=== PATIENT | male | born 1930 | race Caucasian/White ===

== ENCOUNTER 2016-12-07 20:49 | Emergency (ER) | payer MEDICARE, BC ==
[2016-12-07 20:59] VITALS: RESP 18
[2016-12-07] MEDS ORDERED: DIPH,PERTUS(ACELL)TETVAC-LF 0.5 ML VIAL IM ONE (21:24)
--- NOTE | 2016-12-07 21:28 | ED ---
General Adult HPI - General Chief complaint: Fall Stated complaint: fall Time Seen by Provider: 12/07/16 21:02 Source: patient, family Mode of arrival: ambulatory Limitations: no limitations - History of Present Illness Initial comments: Patient is a pleasant 86-year-old male presenting to the emergency department following a fall. Incident occurred prior to arrival. Patient fell 2 steps off a front porch. Patient did strike the back of his head. There was some bleeding. No loss of consciousness. Patient does have some chronic weakness, no worse than normal. No significant headache. No confusion. No speech problems. Patient does have a history of head injury with intracranial hemorrhage previously. Patient is no longer on Plavix. Labs tetanus immunization was around 6 years ago. It did take patient tended 20 minutes to get up. Following this patient was able to walk normally without difficulty. - Related Data Home Medications Medication Instructions Recorded Confirmed Aspirin 81 mg PO HS 03/19/14 01/05/16 Atorvastatin [Lipitor] 80 mg PO HS 03/19/14 01/05/16 Carbidopa-Levodopa 25-100 mg 1 tab PO QID 03/19/14 01/05/16 [Sinemet 25-100 mg] Finasteride 5 mg PO DAILY 03/19/14 01/05/16 Furosemide [Lasix] 40 mg PO DAILY 03/19/14 01/05/16 Gabapentin 600 mg PO HS 03/19/14 01/05/16 Trospium Chloride [Sanctura Xr] 60 mg PO DAILY 03/19/14 01/05/16 rOPINIRole HCL [Requip] 2 mg PO BID 03/19/14 01/05/16 Carvedilol [Coreg] 3.125 mg PO AC-BID 01/25/15 01/05/16 Clopidogrel [Plavix] 75 mg PO DAILY 01/25/15 01/05/16 Meclizine [Antivert] 12.5 mg PO BID PRN 10/14/15 01/05/16 diphenhydrAMINE [Benadryl] 25 mg PO BID PRN 10/14/15 01/05/16 Amoxicillin 500 mg PO TID 01/05/16 01/05/16 Neupro Transdermal Patch 1 applic TOPICAL DAILY 01/05/16 01/05/16 Omeprazole [PriLOSEC] 40 mg PO AC-BRKFST 01/05/16 01/05/16 Pregabalin [Lyrica] 50 mg PO DAILY 01/05/16 01/05/16 Previous Rx's Medication Instructions Recorded Albuterol Inhaler [Ventolin Hfa 2 puff INHALATION RT-Q6H #1 01/08/16 Inhaler] Budesonide-Formot 160-4.5 Mcg 2 puff INHALATION RT-BID #1 puff 01/08/16 [Symbicort 160-4.5 Mcg Inhaler] predniSONE 10 mg PO DIRECTED #30 tab 01/08/16 Allergies Allergy/AdvReac Type Severity Reaction Status Date / Time No Known Allergies Allergy Verified 01/05/16 16:06 Review of Systems ROS Statement: Those systems with pertinent positive or pertinent negative responses have been documented in the HPI. ROS Other: All systems not noted in ROS Statement are negative. Constitutional: Denies: fever Eyes: Denies: eye pain ENT: Denies: ear pain Respiratory: Denies: cough Cardiovascular: Denies: chest pain Endocrine: Denies: fatigue Gastrointestinal: Denies: abdominal pain Genitourinary: Denies: dysuria Musculoskeletal: Denies: back pain Skin: Denies: rash Neurological: Denies: headache, weakness Past Medical History Past Medical History: Blood Disorder, Coronary Artery Disease (CAD), Chest Pain / Angina, Heart Failure, GERD/Reflux, Hyperlipidemia, Hypertension, Myocardial Infarction ([place]), Prostate Disorder, Sleep Apnea/CPAP/BIPAP Additional Past Medical History / Comment(s): Sliding hiatal hernia, mild gastritis, diverticulosis, GE reflux, hyperlipidemia, hypertension, coronary artery disease with previous bypass surgery, previous [place], chronic anemia, colonic polyp (right colon), obesity, mild aneurysmal dilatation of the ascending aorta, PARKINSONS, DIVERTIUCLAR DISEASE, CPAP MACHINE, PEPTIC ULCERS, ANEMIA, BPH,UTI,FALLS(06-29-15 FELL OFF LADDER-HEAD INJURY AND FX LT COLLAR BONE - NO SX. FEEL AGAIN 10-14-15 ) Last Myocardial Infarction Date:: 1996 History of Any Multi-Drug Resistant Organisms: None Reported Past Surgical History: Coronary Bypass/CABG, Heart Catheterization, Heart Catheterization With Stent, Joint Replacement, Tonsillectomy Additional Past Surgical History / Comment(s): 2 VESSEL CABG 30 YRS AGO. knee replacement 20yrs ago, StentS placed 2011,ERENDIRA ARTHROTOMY, FINGER SX, EGD/ COLONNOSCOPY,RT FOOT SX. Past Anesthesia/Blood Transfusion Reactions: No Reported Reaction Additional Past Anesthesia/Blood Transfusion Reaction / Comment(s): Pt takes a long time waking up after general anesthesia. PER PST MEDICL HX-HAD BLOOD TRANSFUSION-NO REACTION TOIT. Date of Last Stent Placement:: 2011 Past Psychological History: No Psychological Hx Reported Additional Psychological History / Comment(s): Pt lives with his in their home. Pt is independent normally. Lately he has been encouraged to use a walker by his family. 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 Smoking Status: Former smoker Past Alcohol Use History: Occasional Additional Past Alcohol Use History / Comment(s): OCCAS. BEER DRINKER APPROX 1 A MONTH, CHEWED TOBACCO SINCE AGE 19 Past Drug Use History: None Reported - Past Family History Father Family Medical History: Cancer, Chest Pain / Angina, Congestive Heart Failure ( CHF), Coronary Artery Disease (CAD), Hypertension, Myocardial Infarction ([place]) Mother Additional Family Medical History / Comment(s): hit by a car causing General Exam Limitations: no limitations General appearance: alert, in no apparent distress Head exam: Present: normocephalic, other (Posterior scalp laceration) Eye exam: Present: normal appearance ENT exam: Present: normal oropharynx Neck exam: Present: normal inspection Respiratory exam: Present: normal lung sounds bilaterally Cardiovascular Exam: Present: regular rate, normal rhythm GI/Abdominal exam: Present: soft. Absent: tenderness Extremities exam: Present: normal inspection, full ROM. Absent: tenderness Neurological exam: Present: alert, other (Mild facial droop which is reported is chronic. Slightly garbled speech which is also reported as chronic. No focal extremity weakness.) Psychiatric exam: Present: normal affect, normal mood Skin exam: Present: other (Posterior scalp laceration) Course Vital Signs 12/07/16 20:55 Temperature 97.0 F L Pulse Rate 80 Respiratory 18 Rate Blood Pressure 109/64 O2 Sat by Pulse 97 Oximetry Procedures - Laceration Laceration #1 Consent Obtained: verbal consent Time Out Performed: Yes Indication: laceration Site: scalp Size (cm): 3 Description: linear Depth: simple, single layer Pre-repair: wound explored (Cleansed with Betadine) Type of Sutures: other ([place]) Number of Sutures: 7 Patient Tolerated Procedure: well, no complications Medical Decision Making - Medical Decision Making Patient reevaluated and resting comfortably in bed. Patient and family updated on results. - Radiology Data Radiology results: image reviewed (Computed tomography scan of the brain shows atrophy, no acute intercranial abnormality.) Disposition Clinical Impression: Fall, Laceration of scalp Disposition: HOME SELF-CARE Condition: Stable Instructions: Fall Prevention for Older Adults (ED), Laceration (ED), Head Injury (ED) Additional Instructions: Gently wash area once daily with soap or shampoo and water. Twice daily apply antibiotic ointment and bandage. Staple removal in 8-10 days. Return for change in mental status, confusion, weakness, worsening symptoms or other concerns. Referrals: Tye Valdez MD [Primary Care Provider] - 1-2 days
--- NOTE | 2016-12-07 21:43 | CT ---
EXAMINATION TYPE: CT brain wo con DATE OF EXAM: 12/07/2016 9:38 PM COMPARISON: 02/13/2016 HISTORY: Pt fell today laceration to posterior side of head. CT DLP: 1030.5 mGycm Automated exposure control for dose reduction was used. FINDINGS: There is cerebral cortical atrophy. There is no mass effect nor midline shift. There is no evidence o f intracranial hemorrhage. The calvarium is intact. There is a small mucous retention cyst in the rig ht maxillary sinus. IMPRESSION: Cerebral atrophy. No acute intracranial abnormality. There is clearing of the intracerebral hemorrhag e compared to old exam.
[2016-12-07 22:25] VITALS: BP 104/66; PULSE 82; TEMP 97.5
== END 2016-12-07 22:24 | disposition home or self-care (01) ==
LOC: EC 20:49
DX: S01.01XA Laceration without foreign body of scalp, initial encounter (principal); W10.9XXA Fall (on) (from) unspecified stairs and steps, initial encounter; K21.9 Gastro-esophageal reflux disease without esophagitis; I11.0 Hypertensive heart disease with heart failure; I50.9 Heart failure, unspecified; E78.5 Hyperlipidemia, unspecified; I25.10 Atherosclerotic heart disease of native coronary artery without angina pectoris; G47.30 Sleep apnea, unspecified; Z99.89 Dependence on other enabling machines and devices; Z79.82 Long term (current) use of aspirin; Z79.51 Long term (current) use of inhaled steroids; Z79.899 Other long term (current) drug therapy; Z87.891 Personal history of nicotine dependence; Z23 Encounter for immunization
CPT/HCPCS: 12002; 70450; 90471; 90715; 99284

== ENCOUNTER 2016-12-28 18:17 | Inpatient (IN) | payer MEDICARE, BC ==
[2016-12-28] MEDS ORDERED: SODIUM CHLORIDE 0.9% 500 ML IV STA (18:40)
[2016-12-28] MEDS ORDERED: SODIUM CHLORIDE 0.9% 1,000 ML IV STA (18:40)
[2016-12-28] MEDS ORDERED: IPRATROPIUM-ALBUTEROL 3 ML NEB INHALATION STA (18:40)
--- NOTE | 2016-12-28 18:45 | ED ---
SOB HPI - General Source: patient, family, EMS, RN notes reviewed Mode of arrival: EMS Limitations: no limitations - History of Present Illness MD Complaint: shortness of breath <Eddie Shields - Last Filed: 12/28/16 18:45> <Valerio Mireles - Last Filed: 12/28/16 21:27> - General Chief Complaint: Shortness of Breath Stated Complaint: weakness Time Seen by Provider: 12/28/16 18:17 - History of Present Illness Initial Comments: This is a 86-year-old male brought in by EMS for evaluation for confusion cough shortness of breath and frequent falls. This reportedly fell 3 times today he' s been confused per family members he had a cough and shortness of breath. He also was noted to be hypotensive at home with a 87/57 blood pressure. He does have a history of CHF. No reports of fevers chills or sweats. (Eddie Shields) - Related Data Home Medications Medication Instructions Recorded Confirmed Aspirin 81 mg PO QAM 03/19/14 12/28/16 Atorvastatin [Lipitor] 40 mg PO HS 03/19/14 12/28/16 Carbidopa-Levodopa 25-100 mg 1 tab PO QID 03/19/14 12/28/16 [Sinemet 25-100 mg] Finasteride 5 mg PO DAILY@1200 03/19/14 12/28/16 rOPINIRole HCL [Requip] 2 mg PO QAM 03/19/14 12/28/16 Carvedilol [Coreg] 3.125 mg PO BID 01/25/15 12/28/16 Omeprazole [PriLOSEC] 40 mg PO AC-BRKFST 01/05/16 12/28/16 Docusate [Colace] 100 mg PO BID 12/28/16 12/28/16 Spironolactone [Aldactone] 25 mg PO DAILY@1200 12/28/16 12/28/16 levETIRAcetam [Keppra] 500 mg PO HS 12/28/16 12/28/16 rOPINIRole HCL [Requip] 3 mg PO HS 12/28/16 12/28/16 Allergies Allergy/AdvReac Type Severity Reaction Status Date / Time No Known Allergies Allergy Verified 12/28/16 19:19 Review of Systems ROS Other: All systems not noted in ROS Statement are negative. <Eddie Shields - Last Filed: 12/28/16 18:45> ROS Other: All systems not noted in ROS Statement are negative. <Valerio Mireles - Last Filed: 12/28/16 21:27> ROS Statement: Those systems with pertinent positive or pertinent negative responses have been documented in the HPI. Past Medical History Past Medical History: Blood Disorder, Coronary Artery Disease (CAD), Chest Pain / Angina, Heart Failure, GERD/Reflux, Hyperlipidemia, Hypertension, Myocardial Infarction ([place]), Prostate Disorder, Sleep Apnea/CPAP/BIPAP Additional Past Medical History / Comment(s): Sliding hiatal hernia, mild gastritis, diverticulosis, GE reflux, hyperlipidemia, hypertension, coronary artery disease with previous bypass surgery, previous [place], chronic anemia, colonic polyp (right colon), obesity, mild aneurysmal dilatation of the ascending aorta, PARKINSONS, DIVERTIUCLAR DISEASE, CPAP MACHINE, PEPTIC ULCERS, ANEMIA, BPH,UTI,FALLS(06-29-15 FELL OFF LADDER-HEAD INJURY AND FX LT COLLAR BONE - NO SX. FEEL AGAIN 10-14-15 ) Last Myocardial Infarction Date:: 1996 History of Any Multi-Drug Resistant Organisms: None Reported Past Surgical History: Coronary Bypass/CABG, Heart Catheterization, Heart Catheterization With Stent, Joint Replacement, Tonsillectomy Additional Past Surgical History / Comment(s): 2 VESSEL CABG 30 YRS AGO. knee replacement 20yrs ago, StentS placed 2011,ERENDIRA ARTHROTOMY, FINGER SX, EGD/ COLONNOSCOPY,RT FOOT SX. Past Anesthesia/Blood Transfusion Reactions: No Reported Reaction Additional Past Anesthesia/Blood Transfusion Reaction / Comment(s): Pt takes a long time waking up after general anesthesia. PER PST MEDICL HX-HAD BLOOD TRANSFUSION-NO REACTION TOIT. Date of Last Stent Placement:: 2011 Past Psychological History: No Psychological Hx Reported Additional Psychological History / Comment(s): Pt lives with his in their home. Pt is independent normally. Lately he has been encouraged to use a walker by his family. 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 Smoking Status: Former smoker Past Alcohol Use History: Occasional Additional Past Alcohol Use History / Comment(s): OCCAS. BEER DRINKER APPROX 1 A MONTH, CHEWED TOBACCO SINCE AGE 19 Past Drug Use History: None Reported - Past Family History Father Family Medical History: Cancer, Chest Pain / Angina, Congestive Heart Failure ( CHF), Coronary Artery Disease (CAD), Hypertension, Myocardial Infarction ([place]) Mother Additional Family Medical History / Comment(s): hit by a car causing <CorneliusEddie - Last Filed: 12/28/16 18:45> General Exam Limitations: no limitations General appearance: alert, lethargic Head exam: Present: normocephalic, other (Erythema noted to the scalp with an old abrasion noted to the right parietal scalp. Also old abrasion with some erythema seen to the occipital scalp.) Eye exam: Present: normal appearance, PERRL, EOMI. Absent: scleral icterus, conjunctival injection, periorbital swelling ENT exam: Present: normal exam, mucous membranes moist Neck exam: Present: normal inspection. Absent: tenderness, meningismus, lymphadenopathy Respiratory exam: Present: rhonchi (Right lower lobe rhonchi), decreased breath sounds. Absent: respiratory distress, wheezes, rales, stridor Cardiovascular Exam: Present: regular rate, normal rhythm, normal heart sounds. Absent: systolic murmur, diastolic murmur, rubs, gallop, clicks GI/Abdominal exam: Present: soft, normal bowel sounds. Absent: distended, tenderness, guarding, rebound, rigid Extremities exam: Present: normal inspection, full ROM, normal capillary refill. Absent: tenderness, pedal edema, joint swelling, calf tenderness Back exam: Present: normal inspection Neurological exam: Present: alert, altered, CN II-XII intact Psychiatric exam: Present: normal affect, normal mood Skin exam: Present: warm, dry. Absent: intact <Eddie Shields - Last Filed: 12/28/16 18:45> <Valerio Mireles - Last Filed: 12/28/16 21:27> - General Exam Comments Initial Comments: Is a well-developed well-nourished confused appearing male (CorneliusEddie) Course <Eddie Shields - Last Filed: 12/28/16 18:45> <Valerio Mireles - Last Filed: 12/28/16 21:27> Vital Signs 12/28/16 12/28/16 12/28/16 18:20 18:55 19:07 Temperature 97.8 F Pulse Rate 69 78 84 Respiratory 20 Rate Blood Pressure 87/57 O2 Sat by Pulse 94 L Oximetry 12/28/16 12/28/16 19:34 21:04 Temperature Pulse Rate 80 74 Respiratory 20 20 Rate Blood Pressure 121/65 102/58 O2 Sat by Pulse 97 98 Oximetry - Reevaluation(s) Reevaluation #1: 12/28/16 18:45 The patient's care will be endorsed to Dr. Mireles who will make the final disposition. (Eddie Shields) Medical Decision Making - EKG Data -: EKG Interpreted by Me EKG shows normal: sinus rhythm (EKG shows a sinus rhythm with frequent PVCs rate was 84. 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 Patient had a little bit of crackles in the right base and his scalp was extremely red on the right side and there was some healing old wounds in 2 areas of the scalp it look like a very early cellulitis of the scalp. I started the patient on Levaquin I also added a urine. I looked at the chest x-ray there was no obvious infiltrate and did not look like congestive heart failure. (Valerio Mireles) - Lab Data Lab Results 12/28/16 12/28/16 12/28/16 Range/Units 18:30 18:30 18:30 WBC 5.4 (3.8-10.6) k/uL RBC 4.79 (4.30-5.90) m/uL Hgb 13.2 (13.0-17.5) gm/dL Hct 41.0 (39.0-53.0) % MCV 85.6 (80.0-100.0) fL MCH 27.5 (25.0-35.0) pg MCHC 32.1 (31.0-37.0) g/dL RDW 16.6 H (11.5-15.5) % Plt Count 170 (150-450) k/uL Neutrophils % (Manual) 69.0 % Band Neutrophils % 7.0 % Lymphocytes % (Manual) 12.0 % Monocytes % (Manual) 8.0 % Eosinophils % (Manual) 4.0 % Neutrophils # (Manual) 4.1 (1.3-7.7) k/uL Lymphocytes # (Manual) 0.6 L (1.0-4.8) k/uL Monocytes # (Manual) 0.4 (0-1.0) k/uL Eosinophils # (Manual) 0.2 (0-0.7) k/uL Nucleated RBCs 0 (0-0) /100 WBC Manual Slide Review Performed Large Platelets Present Polychromasia Present Anisocytosis Slight Ovalocytes Present Fragmented RBCs Present PT (9.0-12.0) sec INR (<1.1) APTT (22.0-30.0) sec Sodium 134 L (137-145) mmol/L Potassium 4.1 (3.5-5.1) mmol/L Chloride 105 (98-107) mmol/L Carbon Dioxide 22 (22-30) mmol/L Anion Gap 7 mmol/L BUN 18 (9-20) mg/dL Creatinine 1.50 H (0.66-1.25) mg/dL Est GFR (MDRD) Af Amer 54 (>60 ml/min/1.73 sqM) Est GFR (MDRD) Non-Af 44 (>60 ml/min/1.73 sqM) Glucose 98 (74-99) mg/dL Calcium 8.0 L (8.4-10.2) mg/dL Magnesium 1.8 (1.6-2.3) mg/dL Total Bilirubin 0.9 (0.2-1.3) mg/dL AST 17 (17-59) U/L ALT 22 (21-72) U/L Alkaline Phosphatase 132 H (38-126) U/L Total Creatine Kinase 128 (55-170) U/L CK-MB (CK-2) 1.9 (0.0-2.4) ng/mL CK-MB (CK-2) Rel Index 1.5 Troponin I 0.091 H* (0.000-0.034) ng/mL NT-Pro-B Natriuret Pep pg/mL Total Protein 6.0 L (6.3-8.2) g/dL Albumin 3.4 L (3.5-5.0) g/dL Urine Color Urine Appearance (Clear) Urine pH (5.0-8.0) Ur Specific [place] (1.001-1.035) Urine Protein (Negative) Urine Glucose (UA) (Negative) Urine Ketones (Negative) Urine Blood (Negative) Urine Nitrate (Negative) Urine Bilirubin (Negative) Urine Urobilinogen (<2.0) mg/dL Ur Leukocyte Esterase (Negative) 12/28/16 12/28/16 12/28/16 Range/Units 18:30 18:30 20:30 WBC (3.8-10.6) k/uL RBC (4.30-5.90) m/uL Hgb (13.0-17.5) gm/dL Hct (39.0-53.0) % MCV (80.0-100.0) fL MCH (25.0-35.0) pg MCHC (31.0-37.0) g/dL RDW (11.5-15.5) % Plt Count (150-450) k/uL Neutrophils % (Manual) % Band Neutrophils % % Lymphocytes % (Manual) % Monocytes % (Manual) % Eosinophils % (Manual) % Neutrophils # (Manual) (1.3-7.7) k/uL Lymphocytes # (Manual) (1.0-4.8) k/uL Monocytes # (Manual) (0-1.0) k/uL Eosinophils # (Manual) (0-0.7) k/uL Nucleated RBCs (0-0) /100 WBC Manual Slide Review Large Platelets Polychromasia Anisocytosis Ovalocytes Fragmented RBCs PT 11.5 (9.0-12.0) sec INR 1.2 (<1.1) APTT 23.7 (22.0-30.0) sec Sodium (137-145) mmol/L Potassium (3.5-5.1) mmol/L Chloride (98-107) mmol/L Carbon Dioxide (22-30) mmol/L Anion Gap mmol/L BUN (9-20) mg/dL Creatinine (0.66-1.25) mg/dL Est GFR (MDRD) Af Amer (>60 ml/min/1.73 sqM) Est GFR (MDRD) Non-Af (>60 ml/min/1.73 sqM) Glucose (74-99) mg/dL Calcium (8.4-10.2) mg/dL Magnesium (1.6-2.3) mg/dL Total Bilirubin (0.2-1.3) mg/dL AST (17-59) U/L ALT (21-72) U/L Alkaline Phosphatase (38-126) U/L Total Creatine Kinase (55-170) U/L CK-MB (CK-2) (0.0-2.4) ng/mL CK-MB (CK-2) Rel Index Troponin I (0.000-0.034) ng/mL NT-Pro-B Natriuret Pep 02702 pg/mL Total Protein (6.3-8.2) g/dL Albumin (3.5-5.0) g/dL Urine Color Yellow Urine Appearance Clear (Clear) Urine pH 5.5 (5.0-8.0) Ur Specific [place] 1.018 (1.001-1.035) Urine Protein Trace H (Negative) Urine Glucose (UA) Negative (Negative) Urine Ketones Negative (Negative) Urine Blood Negative (Negative) Urine Nitrate Negative (Negative) Urine Bilirubin Negative (Negative) Urine Urobilinogen 2.0 (<2.0) mg/dL Ur Leukocyte Esterase Negative (Negative) Disposition <Eddie Shields - Last Filed: 12/28/16 18:45> Time of Disposition: 21:27 <Valerio Mireles - Last Filed: 12/28/16 21:27> Clinical Impression: Cellulitis of scalp, Altered mental status, Multiple falls, Bronchitis Disposition: ADMITTED IP TO THIS HOSP Referrals: Tye Valdez MD [Primary Care Provider] - 1-2 days
[2016-12-28 18:58] LABS: Anisocytosis Slight; Aty Lym Flag Slight; CH 27.4; CHCM 32.2; HDW 2.98; HGB 13.2 gm/dL (13.0-17.5); MCH 27.5 pg (25.0-35.0); MCHC 32.1 g/dL (31.0-37.0); MCV 85.6 fL (80.0-100.0); Mean Platelet Volume 8.4; RBC 4.79 m/uL (4.30-5.90); RDW 16.6 % (11.5-15.5); WBC 5.4 k/uL (3.8-10.6)
[2016-12-28 19:00] LABS: INR 1.2 (<1.1); Partial Thromboplastin Time 23.7 sec (22.0-30.0); Prothrombin Time 11.5 sec (9.0-12.0)
[2016-12-28 19:04] LABS: Magnesium 1.8 mg/dL (1.6-2.3); Potassium 4.1 mmol/L (3.5-5.1); Total Bilirubin 0.9 mg/dL (0.2-1.3)
[2016-12-28 19:24] LABS: Add Differential Manual Differential
[2016-12-28 19:28] LABS: Nucleated Red Blood Cells 0 /100 WBC (0-0); Total Cells Counted 100
[2016-12-28 19:30] LABS: Creatine Kinase MB 1.9 ng/mL (0.0-2.4); Manual Review Performed
[2016-12-28 19:31] LABS: Large Platelets Present; Ovalocytes Present
[2016-12-28 19:32] LABS: Polychromasia Present
[2016-12-28 19:33] LABS: Troponin I 0.091 ng/mL (0.000-0.034)
--- NOTE | 2016-12-28 19:36 | CT ---
EXAMINATION TYPE: CT brain ismael wo con DATE OF EXAM: 12/28/2016 7:29 PM COMPARISON: 02/13/2016 HISTORY: Weakness and confusion. CT DLP: 2392.00 mGycm Automated exposure control for dose reduction was used. TECHNIQUE: CT scan of the head and cervical spine are performed without contrast. FINDINGS: There is cerebral cortical atrophy. There is no mass effect nor midline shift. There is n o sign of intracranial hemorrhage. There is minimal hypodensity in the white matter of the left and r ight parietal lobe. Calvarium is intact.. There is straightening of the cervical spine and a slight kyphotic curvature at C3-4 level. There is degenerative disc space narrowing throughout the cervical spine. Posterior elements are intact. There is mild hypertrophic facet arthropathy. I see no compression fracture. The skull base is intact. IMPRESSION: Cerebral atrophy and mild chronic small vessel ischemia. No acute intracranial abnormality. No change . Spondylotic changes throughout the cervical spine with straightening of the vertebra. No fracture. No change compared to old exam.
--- NOTE | 2016-12-28 19:38 | XR ---
EXAMINATION TYPE: XR chest 2V DATE OF EXAM: 12/28/2016 7:30 PM COMPARISON: 02/13/2016 HISTORY: Short of breath TECHNIQUE: Frontal and lateral views of the chest are obtained. FINDINGS: There is mild coarsening of interstitial pulmonary markings. Heart is enlarged. There is n o heart failure. There are chest leads. Thoracic aorta is atheromatous. There are sternal wires. Cost ophrenic angles are clear. IMPRESSION: Mild pulmonary fibrotic changes. No acute lung disease. No significant change compared t o old exam.
[2016-12-28] MEDS ORDERED: LEVOFLOXACIN 750MG-D5W PMX 750 MG in DEXTROSE/WATER 1 150ML.BAG IVPB STA (19:51)
[2016-12-28] MEDS ORDERED: LEVOFLOXACIN 750MG-D5W PMX 750 MG in DEXTROSE/WATER 1 150ML.BAG IVPB SCH (20:00)
[2016-12-28 21:15] LABS: Appearance,Urine Clear (Clear); Bilirubin,Urine Negative (Negative); Glucose,Urine (UA) Negative (Negative); Ketones,Urine Negative (Negative); Leukocyte Esterase,Urine Negative (Negative); Nitrite,Urine Negative (Negative); PH, Urine 5.5 (5.0-8.0); Protein,Urine Trace (Negative); Specific Gravity,Urine 1.018 (1.001-1.035); UA Billing (MACRO vs. MICRO) CHEM
[2016-12-28] MEDS ORDERED: SODIUM CHLORIDE 0.9% 1,000 ML IV ONE (21:27)
[2016-12-28] MEDS: ACETAMINOPHEN TAB 325 MG TAB PO PRN (22:37)
[2016-12-29] MEDS: CARBIDOPA-LEVODOPA 25-100 MG 1 EACH TAB PO SCH ×3 (13:33→21:11)
--- NOTE | 2016-12-29 15:30 | P.HPIM ---
History of Present Illness H&P Date: 12/29/16 86-year-old gentleman with history of Parkinson's disease is done the hospital with some mental status changes and falls in the recent times. Patient today states that he does not have any headaches, blurry vision, nausea , vomiting, urinary urgency or frequency. Unsure if patient's history is reliable at this time. I did review the ER physician's note and I did speak to the ER physician and the time of admission he stated that the patient had cellulitis of the scalp and wondered if the infection was a reason for his change in mental status and recent falls. Since admission no new events were reported. Chest x-ray did not reveal any acute processes. EKG did not reveal any acute processes. Review of Systems All systems: negative (Noted in HPI) Past Medical History Past Medical History: Blood Disorder, Coronary Artery Disease (CAD), Chest Pain / Angina, Heart Failure, GERD/Reflux, Hyperlipidemia, Hypertension, Myocardial Infarction (PA), Prostate Disorder, Sleep Apnea/CPAP/BIPAP Additional Past Medical History / Comment(s): Sliding hiatal hernia, mild gastritis, diverticulosis, GE reflux, hyperlipidemia, hypertension, coronary artery disease with previous bypass surgery, previous PA, chronic anemia, colonic polyp (right colon), obesity, mild aneurysmal dilatation of the ascending aorta, PARKINSONS, DIVERTIUCLAR DISEASE, CPAP MACHINE, PEPTIC ULCERS, ANEMIA, BPH,UTI,FALLS(06-29-15 FELL OFF LADDER-HEAD INJURY AND FX LT COLLAR BONE - NO SX. FEEL AGAIN 10-14-15 ) Last Myocardial Infarction Date:: 1996 History of Any Multi-Drug Resistant Organisms: None Reported Past Surgical History: Coronary Bypass/CABG, Heart Catheterization, Heart Catheterization With Stent, Joint Replacement, Tonsillectomy Additional Past Surgical History / Comment(s): 2 VESSEL CABG 30 YRS AGO. knee replacement 20yrs ago, StentS placed 2011,ERENDIRA ARTHROTOMY, FINGER SX, EGD/ COLONNOSCOPY,RT FOOT SX. Past Anesthesia/Blood Transfusion Reactions: No Reported Reaction Additional Past Anesthesia/Blood Transfusion Reaction / Comment(s): Pt takes a long time waking up after general anesthesia. PER PST MEDICL HX-HAD BLOOD TRANSFUSION-NO REACTION TOIT. Date of Last Stent Placement:: 2011 Past Psychological History: No Psychological Hx Reported Additional Psychological History / Comment(s): Pt lives with his in their home. Pt is independent normally. Lately he has been encouraged to use a walker by his family. 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 Smoking Status: Never smoker Past Alcohol Use History: Occasional Additional Past Alcohol Use History / Comment(s): OCCAS. BEER DRINKER APPROX 1 A MONTH, CHEWED TOBACCO SINCE AGE 19 Past Drug Use History: None Reported - Past Family History Father Family Medical History: Cancer, Chest Pain / Angina, Congestive Heart Failure ( CHF), Coronary Artery Disease (CAD), Hypertension, Myocardial Infarction (PA) Mother Additional Family Medical History / Comment(s): hit by a car causing Medications and Allergies Home Medications Medication Instructions Recorded Confirmed Type Aspirin 81 mg PO QAM 03/19/14 12/28/16 History Atorvastatin [Lipitor] 40 mg PO HS 03/19/14 12/28/16 History Carbidopa-Levodopa 25-100 mg 1 tab PO QID 03/19/14 12/28/16 History [Sinemet 25-100 mg] Finasteride 5 mg PO DAILY@1200 03/19/14 12/28/16 History rOPINIRole HCL [Requip] 2 mg PO QAM 03/19/14 12/28/16 History Carvedilol [Coreg] 3.125 mg PO BID 01/25/15 12/28/16 History Omeprazole [PriLOSEC] 40 mg PO AC-BRKFST 01/05/16 12/28/16 History Docusate [Colace] 100 mg PO BID 12/28/16 12/28/16 History Spironolactone [Aldactone] 25 mg PO DAILY@1200 12/28/16 12/28/16 History levETIRAcetam [Keppra] 500 mg PO HS 12/28/16 12/28/16 History rOPINIRole HCL [Requip] 3 mg PO HS 12/28/16 12/28/16 History Allergies Allergy/AdvReac Type Severity Reaction Status Date / Time No Known Allergies Allergy Verified 12/28/16 19:19 Physical Exam Vitals: Vital Signs Temp Pulse Pulse Resp BP BP Pulse Ox 12/29/16 11:30 97.7 F 73 18 117/69 98 12/29/16 08:00 97.1 F L 99 20 112/56 98 12/29/16 04:00 97.4 F L 88 17 114/67 99 12/28/16 23:00 98.7 F 89 18 102/70 97 12/28/16 21:49 98.7 F 89 18 102/70 97 12/28/16 21:46 98.8 F 69 20 103/58 98 Intake and Output 12/29/16 12/29/16 12/29/16 06:59 14:59 22:59 Intake Total 416 Output Total 450 100 Balance -450 316 Intake: Oral 416 Output: Urine 450 100 Other: Voiding Method Urinal Urinal Physical exam Gen. Alert to self Scalp there is erythema and warm to touch WITH the posterior scalp there is some skin breakdown on the posterior surface of the scalp. No signs of abscess. Neck is supple no JVD Lungs good air entry clear to auscultation no rhonchi or wheezing Heart S1-S2 heard regular rate and rhythm no murmurs appreciated Abdomen is soft nontender no organomegaly bowel sounds are intact Neurologically cranial nerves II-12 grossly intact no focal motor or sensory deficits noted Skin no abnormalities appreciated Results CBC & Chem 7: 12/28/16 18:30 12/28/16 18:30 Labs: Abnormal Lab Results - Last 24 Hours (Table) 12/29/16 Range/Units 04:49 Troponin I 0.078 H* (0.000-0.034) ng/mL Thrombosis Risk Factor Assmnt - Choose All That Apply Each Factor Represents 1 point: Obesity (BMI >25) Other Risk Factors: Yes Each Risk Factor Represents 3 Points: Age 75 years or older Thrombosis Risk Factor Assessment Total Risk Factor Score: 4 Thrombosis Risk Factor Assessment Level: Moderate Risk Assessment and Plan Plan: #1 cellulitis of the scalp #2 history of Parkinson's disease #3 CAD #4 history of hypertension #5 deconditioning. #6 CK D stage III #7 dementia #8 history of seizure disorder #8 history of CVA #9 BPH #10 history of congestive heart failure that is compensated. Systolic in nature. plan. I will change antibiotics to IV Unasyn. Will have physical therapy evaluate the patient's gait and stability. Medications were reconciled. DVT prophylaxis will be ensured. Frequent monitoring of the scalp.. Computed tomography scan of the head and neck were reviewed no signs of abscesses noted on that. Repeat chest x-ray will be done.
[2016-12-29] MEDS: AMPICILLIN-SULBACTAM 3 GM in SODIUM CHLORIDE 0.9% 100 ML IVPB SCH ×2 (15:53→23:48)
[2016-12-29] MEDS: CARVEDILOL 3.125 MG TAB PO SCH (17:16)
[2016-12-29] MEDS ORDERED: LEVOFLOXACIN 750MG-D5W PMX 750 MG in DEXTROSE/WATER 1 150ML.BAG IVPB SCH (20:00)
[2016-12-29] MEDS: ATORVASTATIN 40 MG TAB PO SCH (21:11)
[2016-12-29] MEDS: DOCUSATE 100 MG CAP PO SCH (21:11)
[2016-12-29] MEDS: levETIRAcetam 500 MG TAB PO SCH (21:11)
[2016-12-29] MEDS: ACETAMINOPHEN TAB 325 MG TAB PO PRN (21:17)
[2016-12-30] MEDS: PANTOPRAZOLE 40 MG TABLET PO SCH (06:27)
[2016-12-30] MEDS: CARVEDILOL 3.125 MG TAB PO SCH ×2 (06:27→17:06)
[2016-12-30 06:54] LABS: ALT 25 U/L (21-72); AST 22 U/L (17-59); Alkaline Phosphatase 118 U/L (38-126); Anion Gap 10 mmol/L; Blood Urea Nitrogen 14 mg/dL (9-20); Calcium 8.3 mg/dL (8.4-10.2); Carbon Dioxide 23 mmol/L (22-30); Chloride 104 mmol/L (98-107); Glucose 98 mg/dL (74-99); Non-African American GFR(MDRD) >60 (>60 ml/min/1.73 sqM); Potassium 4.6 mmol/L (3.5-5.1); Sodium 137 mmol/L (137-145); Total Bilirubin 0.9 mg/dL (0.2-1.3); Total Protein 5.9 g/dL (6.3-8.2)
[2016-12-30 07:20] LABS: Anisocytosis Slight; Aty Lym Flag Slight; CH 27.3; CHCM 31.9; HCT 41.7 % (39.0-53.0); HDW 3.09; HGB 13.2 gm/dL (13.0-17.5); Hypochromasia Slight; MCH 27.5 pg (25.0-35.0); MCHC 31.8 g/dL (31.0-37.0); MCV 86.3 fL (80.0-100.0); RBC 4.82 m/uL (4.30-5.90); RDW 16.7 % (11.5-15.5); WBC 5.6 k/uL (3.8-10.6); WBC (Perox) 5.65
--- NOTE | 2016-12-30 07:50 | XR ---
EXAMINATION TYPE: XR chest 1V portable DATE OF EXAM: 12/30/2016 7:08 AM COMPARISON: 12/28/2016 HISTORY: Shortness of breath TECHNIQUE: Single frontal view of the chest is obtained. FINDINGS: Diffuse interstitial process noted with cardiomegaly and atherosclerotic change aorta. Pre vious surgery involving the right shoulder and mediastinum noted. More confluent nodular density in t he right apex. Underlying COPD suspected. Vague lucency related to the right upper quadrant appears s table dating back to 01/17/2015 may represent interpositioned bowel correlate clinically. IMPRESSION: 1. Findings are most typical of CHF. Questionable nodular density right upper lobe should be followed with subsequent x-ray.
[2016-12-30] MEDS: DOCUSATE 100 MG CAP PO SCH ×2 (08:20→19:54)
[2016-12-30] MEDS: AMPICILLIN-SULBACTAM 3 GM in SODIUM CHLORIDE 0.9% 100 ML IVPB SCH ×3 (08:20→23:00)
[2016-12-30] MEDS: CARBIDOPA-LEVODOPA 25-100 MG 1 EACH TAB PO SCH ×4 (08:20→19:54)
[2016-12-30] MEDS: ASPIRIN 81 MG CHEW PO SCH (08:20)
[2016-12-30] MEDS: ACETAMINOPHEN TAB 325 MG TAB PO PRN (11:10)
[2016-12-30] MEDS: SPIRONOLACTONE 25 MG TAB PO SCH (11:17)
[2016-12-30] MEDS: FINASTERIDE 5 MG TAB PO SCH (11:17)
[2016-12-30 12:36] LABS: Add Differential Manual Differential
[2016-12-30 12:39] LABS: Nucleated Red Blood Cells 0 /100 WBC (0-0); Total Cells Counted 100
[2016-12-30 12:42] LABS: Large Platelets Present; Polychromasia Present; Toxic Granulation Present
[2016-12-30] MEDS ORDERED: FUROSEMIDE 10 MG/ML 4 ML VIAL IV STA (15:10)
--- NOTE | 2016-12-30 17:46 | P.PN ---
Subjective 86-year-old gentleman with history of Parkinson's disease is done the hospital with some mental status changes and falls in the recent times. Patient today states that he does not have any headaches, blurry vision, nausea , vomiting, urinary urgency or frequency. Unsure if patient's history is reliable at this time. I did review the ER physician's note and I did speak to the ER physician and the time of admission he stated that the patient had cellulitis of the scalp and wondered if the infection was a reason for his change in mental status and recent falls. Since admission no new events were reported. Chest x-ray did not reveal any acute processes. EKG did not reveal any acute processes. 12/30/16 States to be feeling slightly better. Continues to have pain on his scalp Denies fevers, chills, nausea, vomiting Has had multiple falls in the last yr Has not seen a neurologist for his parkinsonism in the recent times. Objective - Vital Signs Vital signs: Vital Signs Temp 97.5 F L 12/30/16 15:45 Pulse 83 12/30/16 15:45 Resp 20 12/30/16 15:45 BP 106/70 12/30/16 15:45 Pulse Ox 99 12/30/16 15:45 Intake & Output 12/29/16 12/30/16 12/30/16 17:59 06:59 18:59 Intake Total 336 Output Total 575 Balance -239 Weight Intake: IV 100 Ampicillin-Sulbactam 3 gm 100 In Sodium Chloride 0.9% 100 ml @ 100 mls/hr IVPB Q8HR [facility] Rx#:[id number] Oral 236 Output: Urine 575 Other: Voiding Method Urinal # Voids 0 # Bowel Movements 0 - Constitutional General appearance: Present: average body habitus, no acute distress - EENT Eyes: Present: PERRLA - Neck Neck: Present: normal ROM. Absent: rigidity - Respiratory Respiratory: bilateral: CTA (with trace crackles) - Cardiovascular Rhythm: regular Heart sounds: normal: S1, S2 Abnormal Heart Sounds: Absent: systolic murmur - Gastrointestinal General gastrointestinal: Present: normal bowel sounds, soft. Absent: tenderness - Integumentary Integumentary: Present: normal - Neurologic Neurologic: Present: CNII-XII intact. Absent: focal deficits - Musculoskeletal Musculoskeletal: Present: strength equal bilaterally - Psychiatric Psychiatric: Present: A&O x's 3 - Labs CBC & Chem 7: 12/30/16 05:49 12/30/16 05:49 Labs: Abnormal Lab Results - Last 24 Hours (Table) 12/30/16 12/30/16 Range/Units 05:49 05:49 RDW 16.7 H (11.5-15.5) % Plt Count 140 L (150-450) k/uL Lymphocytes # (Manual) 0.6 L (1.0-4.8) k/uL Calcium 8.3 L (8.4-10.2) mg/dL Total Protein 5.9 L (6.3-8.2) g/dL Albumin 3.3 L (3.5-5.0) g/dL Assessment and Plan Plan: #1 cellulitis of the scalp #2 history of Parkinson's disease #3 CAD #4 history of hypertension #5 deconditioning. #6 CK D stage III #7 dementia #8 history of seizure disorder #8 history of CVA #9 BPH #10 history of congestive heart failure that is compensated. Systolic in nature. plan. Continue IV Unasyn. Will have physical therapy evaluate the patient's gait and stability. some clasp knife rigidity noted. Medications were reconciled. DVT prophylaxis will be ensured. Frequent monitoring of the scalp. Computed tomography scan of the head and neck were reviewed no signs of abscesses noted on that. Repeat chest x-ray noted. restart lasix. 40mg iv today Will likely need placement.
[2016-12-30] MEDS: ATORVASTATIN 40 MG TAB PO SCH (19:53)
[2016-12-30] MEDS: levETIRAcetam 500 MG TAB PO SCH (19:54)
[2016-12-31] MEDS: PANTOPRAZOLE 40 MG TABLET PO SCH (06:35)
[2016-12-31] MEDS: CARVEDILOL 3.125 MG TAB PO SCH ×2 (06:35→16:48)
[2016-12-31 06:54] LABS: Anisocytosis Slight; Aty Lym Flag Moderate; CH 27.3; CHCM 32.4; HCT 42.9 % (39.0-53.0); HDW 3.15; HGB 13.6 gm/dL (13.0-17.5); Hypochromasia Slight; MCHC 31.7 g/dL (31.0-37.0); MCV 85.1 fL (80.0-100.0); Mean Platelet Volume 9.4; RBC 5.04 m/uL (4.30-5.90); RDW 16.8 % (11.5-15.5); WBC 6.2 k/uL (3.8-10.6); WBC (Perox) 6.27
[2016-12-31 07:06] LABS: Add Differential Manual Differential
[2016-12-31 07:10] LABS: Nucleated Red Blood Cells 0 /100 WBC (0-0); Total Cells Counted 100
[2016-12-31 07:10] LABS: ALT 17 U/L (21-72); AST 24 U/L (17-59); Alkaline Phosphatase 120 U/L (38-126); Anion Gap 11 mmol/L; Blood Urea Nitrogen 15 mg/dL (9-20); Calcium 8.2 mg/dL (8.4-10.2); Carbon Dioxide 25 mmol/L (22-30); Chloride 103 mmol/L (98-107); Glucose 99 mg/dL (74-99); Magnesium 1.7 mg/dL (1.6-2.3); Non-African American GFR(MDRD) >60 (>60 ml/min/1.73 sqM); Potassium 4.3 mmol/L (3.5-5.1); Sodium 139 mmol/L (137-145); Total Protein 6.1 g/dL (6.3-8.2)
[2016-12-31 07:12] LABS: Manual Review Performed
[2016-12-31] MEDS: AMPICILLIN-SULBACTAM 3 GM in SODIUM CHLORIDE 0.9% 100 ML IVPB SCH ×3 (07:47→23:42)
[2016-12-31] MEDS: ASPIRIN 81 MG CHEW PO SCH (07:48)
[2016-12-31] MEDS: DOCUSATE 100 MG CAP PO SCH ×2 (07:48→20:57)
[2016-12-31] MEDS: CARBIDOPA-LEVODOPA 25-100 MG 1 EACH TAB PO SCH ×4 (07:48→20:59)
[2016-12-31] MEDS: FINASTERIDE 5 MG TAB PO SCH (11:23)
[2016-12-31] MEDS: SPIRONOLACTONE 25 MG TAB PO SCH (11:23)
[2016-12-31 14:48] VITALS: BMI 25.9
--- NOTE | 2016-12-31 17:06 | P.PN ---
Subjective 86-year-old gentleman with history of Parkinson's disease is done the hospital with some mental status changes and falls in the recent times. Patient today states that he does not have any headaches, blurry vision, nausea , vomiting, urinary urgency or frequency. Unsure if patient's history is reliable at this time. I did review the ER physician's note and I did speak to the ER physician and the time of admission he stated that the patient had cellulitis of the scalp and wondered if the infection was a reason for his change in mental status and recent falls. Since admission no new events were reported. Chest x-ray did not reveal any acute processes. EKG did not reveal any acute processes. 12/30/16 States to be feeling slightly better. Continues to have pain on his scalp Denies fevers, chills, nausea, vomiting Has had multiple falls in the last yr Has not seen a neurologist for his parkinsonism in the recent times. 12/31/16 States to be doing well No more tenderness reported on the scalp Objective - Vital Signs Vital signs: Vital Signs Temp 97 F L 12/31/16 15:15 Pulse 85 12/31/16 15:15 Resp 17 12/31/16 15:15 BP 131/65 12/31/16 15:15 Pulse Ox 96 12/31/16 15:15 Intake & Output 12/30/16 12/31/16 12/31/16 18:59 06:59 18:59 Intake Total 536 250 220 Output Total 1375 1200 600 Balance -839 -950 -380 Weight 86.8 kg 86.8 kg Intake: IV 100 100 Ampicillin-Sulbactam 3 gm 100 100 In Sodium Chloride 0.9% 100 ml @ 100 mls/hr IVPB Q8HR [facility] Rx#:[id number] Oral 436 250 120 Output: Urine 1375 1200 600 Other: Voiding Method Urinal Urinal Urinal # Voids 0 1 0 # Bowel Movements 0 - Constitutional General appearance: Present: mild distress - EENT Eyes: Present: PERRLA - Neck Neck: Present: normal ROM - Respiratory Respiratory: bilateral: CTA - Cardiovascular Rhythm: regular Heart sounds: normal: S1, S2 - Gastrointestinal General gastrointestinal: Present: normal bowel sounds, soft. Absent: organomegaly - Integumentary Integumentary: Present: normal - Neurologic Neurologic: Present: CNII-XII intact. Absent: focal deficits - Psychiatric Psychiatric: Present: A&O x's 3, appropriate affect - Additional findings Additional findings: scalp Improved less edema noted psoteriorly non tender to palpaiton previous scabs noted, - Labs CBC & Chem 7: 12/31/16 06:05 12/31/16 06:02 Labs: Abnormal Lab Results - Last 24 Hours (Table) 12/31/16 12/31/16 Range/Units 06:02 06:05 RDW 16.8 H (11.5-15.5) % Plt Count 127 L (150-450) k/uL Calcium 8.2 L (8.4-10.2) mg/dL ALT 17 L (21-72) U/L Total Protein 6.1 L (6.3-8.2) g/dL Albumin 3.3 L (3.5-5.0) g/dL Assessment and Plan Plan: #1 cellulitis of the scalp #2 history of Parkinson's disease #3 CAD #4 history of hypertension #5 deconditioning. #6 CK D stage III #7 dementia #8 history of seizure disorder #8 history of CVA #9 BPH #10 history of congestive heart failure that is compensated. Systolic in nature. plan. Continue IV Unasyn. Will have physical therapy evaluate the patient's gait and stability. some clasp knife rigidity noted. Medications were reconciled. DVT prophylaxis will be ensured. Frequent monitoring of the scalp. Computed tomography scan of the head and neck were reviewed no signs of abscesses noted on that. Improved Dc to SNF in the am. Will likely need placement.
[2016-12-31] MEDS: ATORVASTATIN 40 MG TAB PO SCH (20:57)
[2016-12-31] MEDS: levETIRAcetam 500 MG TAB PO SCH (20:58)
[2017-01-01] MEDS: CARVEDILOL 3.125 MG TAB PO SCH (06:48)
[2017-01-01] MEDS: PANTOPRAZOLE 40 MG TABLET PO SCH (06:48)
[2017-01-01] MEDS: AMPICILLIN-SULBACTAM 3 GM in SODIUM CHLORIDE 0.9% 100 ML IVPB SCH (09:39)
[2017-01-01] MEDS: ASPIRIN 81 MG CHEW PO SCH (10:10)
[2017-01-01] MEDS: CARBIDOPA-LEVODOPA 25-100 MG 1 EACH TAB PO SCH ×2 (10:11→11:19)
[2017-01-01] MEDS: DOCUSATE 100 MG CAP PO SCH (10:11)
[2017-01-01 11:17] VITALS: BP 130/82; PULSE 88; RESP 17; TEMP 97.1
[2017-01-01] MEDS: SPIRONOLACTONE 25 MG TAB PO SCH (11:18)
[2017-01-01] MEDS: FINASTERIDE 5 MG TAB PO SCH (11:19)
--- NOTE | 2017-01-01 12:51 | P.DS ---
Providers Date of admission: 12/28/16 21:27 Attending physician: Katya Strickland Primary care physician: José Miguel Rodriguez [facility] Course: 86-year-old gentleman with history of Parkinson's disease is done the hospital with some mental status changes and falls in the recent times. Patient today states that he does not have any headaches, blurry vision, nausea , vomiting, urinary urgency or frequency. Unsure if patient's history is reliable at this time. I did review the ER physician's note and I did speak to the ER physician and the time of admission he stated that the patient had cellulitis of the scalp and wondered if the infection was a reason for his change in mental status and recent falls. Since admission no new events were reported. Chest x-ray did not reveal any acute processes. EKG did not reveal any acute processes. 12/30/16 States to be feeling slightly better. Continues to have pain on his scalp Denies fevers, chills, nausea, vomiting Has had multiple falls in the last yr Has not seen a neurologist for his parkinsonism in the recent times. 12/31/16 States to be doing well No more tenderness reported on the scalp 3 Doing well. - Constitutional General appearance: Present: mild distress - EENT Eyes: Present: PERRLA - Neck Neck: Present: normal ROM - Respiratory Respiratory: bilateral: CTA - Cardiovascular Rhythm: regular Heart sounds: normal: S1, S2 - Gastrointestinal General gastrointestinal: Present: normal bowel sounds, soft. Absent: organomegaly - Integumentary Integumentary: Present: normal - Neurologic Neurologic: Present: CNII-XII intact. Absent: focal deficits - Psychiatric Psychiatric: Present: A&O x's 3, appropriate affect - Additional findings Additional findings: scalp Improved less edema noted psoteriorly non tender to palpaiton previous scabs noted, Assessment and Plan Plan: #1 cellulitis of the scalp #2 history of Parkinson's disease #3 CAD #4 history of hypertension #5 deconditioning. #6 CKD stage III #7 dementia #8 history of seizure disorder #8 history of CVA #9 BPH #10 history of congestive heart failure that is compensated. Systolic in nature. Pt improve oral abx for cellulitis. Gait PT Follow up with neurology for Parkinsonism med follow up High risk for falls Plan - Discharge Summary New Discharge Prescriptions: Cephalexin [Keflex] 500 mg PO BID #10 capsule Furosemide [Lasix] 20 mg PO BID #60 tablet Discharge Medication List Aspirin 81 mg PO QAM 03/19/14 [History] Atorvastatin [Lipitor] 40 mg PO HS 03/19/14 [History] Carbidopa-Levodopa 25-100 mg [Sinemet 25-100 mg] 1 tab PO QID 03/19/14 [History] Finasteride 5 mg PO DAILY@1200 03/19/14 [History] rOPINIRole HCL [Requip] 2 mg PO QAM 03/19/14 [History] Carvedilol [Coreg] 3.125 mg PO BID 01/25/15 [History] Omeprazole [PriLOSEC] 40 mg PO AC-BRKFST 01/05/16 [History] Docusate [Colace] 100 mg PO BID 12/28/16 [History] Spironolactone [Aldactone] 25 mg PO DAILY@1200 12/28/16 [History] levETIRAcetam [Keppra] 500 mg PO HS 12/28/16 [History] rOPINIRole HCL [Requip] 3 mg PO HS 12/28/16 [History] Cephalexin [Keflex] 500 mg PO BID #10 capsule 12/31/16 [Rx] Furosemide [Lasix] 20 mg PO BID #60 tablet 12/31/16 [Rx] Follow up Appointment(s)/Referral(s): Tye Valdez MD [Primary Care Provider] - 1-2 days Ambulatory/Diagnostic Orders: Comprehensive Metabolic Panel [LAB.AMB] Location: Determined By Patient Discharge Disposition: TRANSFER TO SNF/ECF
== END 2017-01-01 14:02 | DRG 603 ==
LOC: EC 18:17 → 6SEL 21:27
PROVIDERS: ADMIT Hospitalist; ATTEND Hospitalist
DX: L03.811 Cellulitis of head [any part, except face] (principal); F03.90 Unspecified dementia, unspecified severity, without behavioral disturbance, psychotic disturbance, mood disturbance, and anxiety; I13.0 Hypertensive heart and chronic kidney disease with heart failure and stage 1 through stage 4 chronic kidney disease, or unspecified chronic kidney disease; I50.22 Chronic systolic (congestive) heart failure; G20 Parkinson's disease; E78.5 Hyperlipidemia, unspecified; G40.909 Epilepsy, unspecified, not intractable, without status epilepticus; G47.30 Sleep apnea, unspecified; N18.3 Chronic kidney disease, stage 3 (moderate); I25.10 Atherosclerotic heart disease of native coronary artery without angina pectoris; I25.2 Old myocardial infarction; K21.9 Gastro-esophageal reflux disease without esophagitis; N40.0 Benign prostatic hyperplasia without lower urinary tract symptoms; R29.6 Repeated falls; Z79.82 Long term (current) use of aspirin; Z79.899 Other long term (current) drug therapy; Z82.49 Family history of ischemic heart disease and other diseases of the circulatory system; Z86.73 Personal history of transient ischemic attack (TIA), and cerebral infarction without residual deficits; Z87.11 Personal history of peptic ulcer disease; Z87.891 Personal history of nicotine dependence; Z95.1 Presence of aortocoronary bypass graft
CPT/HCPCS: 36415; 70450; 71010; 71020; 72125; 80053; 81003; 82550; 82553; 83735; 83880; 84484; 85025; 85610; 85730; 87040; 93005; 94640; 96361; 96365; 96366; 99285

== ENCOUNTER 2017-01-13 13:43 | Emergency (ER) | payer MEDICARE, BC ==
--- NOTE | 2017-01-13 14:26 | ED ---
Fall HPI - General Chief Complaint: Fall Stated Complaint: Fall Time Seen by Provider: 01/13/17 14:00 Source: EMS Mode of arrival: EMS - History of Present Illness Initial Comments: 86-year-old male patient presents today for evaluation after accidentally a fall around 0400 this morning. Family states that [facility] staff reevaluated the wound to his right eyebrow this afternoon and realized the laceration was deeper than they first thought so sent him in for sutures. He states that he was sitting on the edge of the bed leaning on the bedside table when he Fell asleep and fell forward striking his face on the floor. Patient was immediately responsive after the fall. Patient is complaining only of posterior neck pain, has any other injuries. Patient denies headache, blurred vision, double vision, nausea, vomiting, dizziness, or weakness. Patient denies any shortness of breath, pain, abdominal pain, back pain, constipation, diarrhea, hematuria, dysuria, urinary urgency, or urinary frequency. That is currently a resident of [facility] for rehab after he was discharged recently from the hospital. - Related Data Home Medications Medication Instructions Recorded Confirmed Aspirin 81 mg PO DAILY 03/19/14 01/13/17 Carbidopa-Levodopa 25-100 mg 1 tab PO QID 03/19/14 01/13/17 [Sinemet 25-100 mg] Finasteride 5 mg PO DAILY 03/19/14 01/13/17 rOPINIRole HCL [Requip] 2 mg PO QAM 03/19/14 01/13/17 Carvedilol [Coreg] 3.125 mg PO BID 01/25/15 01/13/17 Spironolactone [Aldactone] 25 mg PO DAILY@1200 12/28/16 01/13/17 levETIRAcetam [Keppra] 500 mg PO HS@199912/28/16 01/13/17 rOPINIRole HCL [Requip] 3 mg PO HS@199912/28/16 01/13/17 Acetaminophen Tab [Tylenol Tab] 650 mg PO Q4H PRN 01/13/17 01/13/17 Atorvastatin [Lipitor] 40 mg PO HS@199901/13/17 01/13/17 Hydrocortisone Cream 1 applic TOPICAL BID 01/13/17 01/13/17 [Hydrocortisone 1% Cream] Ipratropium-Albuterol Nebulize 3 ml INHALATION RT-Q6H 01/13/17 01/13/17 [Duoneb 0.5 mg-3 mg/3 ml Soln] Omeprazole 40 mg PO DAILY 01/13/17 01/13/17 Rotigotine [Neupro] 1 patch TRANSDERM HS 01/13/17 01/13/17 guaiFENesin SYRUP 100MG/5ML 200 mg PO Q6H 01/13/17 01/13/17 [Robitussin] Previous Rx's Medication Instructions Recorded Furosemide [Lasix] 20 mg PO BID #60 tablet 12/31/16 Allergies Allergy/AdvReac Type Severity Reaction Status Date / Time No Known Allergies Allergy Verified 01/13/17 14:41 Review of Systems ROS Statement: Those systems with pertinent positive or pertinent negative responses have been documented in the HPI. ROS Other: All systems not noted in ROS Statement are negative. Past Medical History Past Medical History: Blood Disorder, Coronary Artery Disease (CAD), Chest Pain / Angina, Heart Failure, GERD/Reflux, Hyperlipidemia, Hypertension, Myocardial Infarction ([place]), Prostate Disorder, Sleep Apnea/CPAP/BIPAP Additional Past Medical History / Comment(s): Sliding hiatal hernia, mild gastritis, diverticulosis, GE reflux, hyperlipidemia, hypertension, coronary artery disease with previous bypass surgery, previous [place], chronic anemia, colonic polyp (right colon), obesity, mild aneurysmal dilatation of the ascending aorta, PARKINSONS, DIVERTIUCLAR DISEASE, CPAP MACHINE, PEPTIC ULCERS, ANEMIA, BPH,UTI,FALLS(06-29-15 FELL OFF LADDER-HEAD INJURY AND FX LT COLLAR BONE - NO SX. FEEL AGAIN 10-14-15 ) Last Myocardial Infarction Date:: 1996 History of Any Multi-Drug Resistant Organisms: None Reported Past Surgical History: Coronary Bypass/CABG, Heart Catheterization, Heart Catheterization With Stent, Joint Replacement, Tonsillectomy Additional Past Surgical History / Comment(s): 2 VESSEL CABG 30 YRS AGO. knee replacement 20yrs ago, StentS placed 2011,ERENDIRA ARTHROTOMY, FINGER SX, EGD/ COLONNOSCOPY,RT FOOT SX. Past Anesthesia/Blood Transfusion Reactions: No Reported Reaction Additional Past Anesthesia/Blood Transfusion Reaction / Comment(s): Pt takes a long time waking up after general anesthesia. PER PST MEDICL HX-HAD BLOOD TRANSFUSION-NO REACTION TOIT. Date of Last Stent Placement:: 2011 Past Psychological History: No Psychological Hx Reported Additional Psychological History / Comment(s): Pt lives with his in their home. Pt is independent normally. Lately he has been encouraged to use a walker by his family. 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 Smoking Status: Never smoker Past Alcohol Use History: Occasional Additional Past Alcohol Use History / Comment(s): OCCAS. BEER DRINKER APPROX 1 A MONTH, CHEWED TOBACCO SINCE AGE 19 Past Drug Use History: None Reported - Past Family History Father Family Medical History: Cancer, Chest Pain / Angina, Congestive Heart Failure ( CHF), Coronary Artery Disease (CAD), Hypertension, Myocardial Infarction ([place]) Mother Additional Family Medical History / Comment(s): hit by a car causing General Exam Limitations: no limitations General appearance: alert, in no apparent distress Head exam: Present: normocephalic. Absent: atraumatic (2 cm laceration to right eyebrow, abrasion to nasal bridge, ecchymosis and edema noted to nasal bridge.) Eye exam: Present: normal appearance, PERRL, EOMI. Absent: scleral icterus, conjunctival injection, periorbital swelling ENT exam: Present: normal exam, normal oropharynx, mucous membranes moist, TM's normal bilaterally Neck exam: Present: normal inspection, tenderness (Over posterior neck). Absent : meningismus, full ROM (C-collar Applied), lymphadenopathy Respiratory exam: Present: normal lung sounds bilaterally. Absent: respiratory distress, wheezes, rales, rhonchi, stridor Cardiovascular Exam: Present: regular rate, normal rhythm, normal heart sounds. Absent: systolic murmur, diastolic murmur, rubs, gallop, clicks GI/Abdominal exam: Present: soft, normal bowel sounds. Absent: distended, tenderness, guarding, rebound, rigid Extremities exam: Present: normal inspection, full ROM, normal capillary refill. Absent: tenderness, pedal edema, joint swelling, calf tenderness Back exam: Present: normal inspection. Absent: tenderness Neurological exam: Present: oriented X3, CN II-XII intact. Absent: alert ( Drowsy) Psychiatric exam: Present: normal affect, normal mood Skin exam: Present: warm, dry, intact, normal color. Absent: rash Course Vital Signs 01/13/17 01/13/17 01/13/17 13:45 15:39 16:06 Temperature 97.4 F L 97.6 F 98.7 F Pulse Rate 79 78 83 Respiratory 20 16 16 Rate Blood Pressure 102/50 139/79 139/79 O2 Sat by Pulse 97 99 96 Oximetry Procedures - Laceration Laceration #1 Consent Obtained: verbal consent Time Out Performed: Yes Indication: laceration Site: face Size (cm): 2 Description: linear Depth: simple, single layer Anesthetic Used: lidocaine 1% Anesthesia Technique: local infiltration Amount (mls): 3 Pre-repair: irrigated extensively Type of Sutures: nylon Size of Sutures: 6-0 Number of Sutures: 6 Technique: simple, interrupted Patient Tolerated Procedure: no complications Medical Decision Making - Medical Decision Making 86-year-old male patient presents to emergency department today for evaluation after fall. Patient was complaining of some neck pain, did have some tenderness. CT of the facial bones reveals nasal fracture of uncertain age, given patient's edema and ecchymosis over the nasal bridge it is likely that this fracture is from the fall. CT of the brain and cervical spine is negative for any acute fracture or acute intracranial abnormalities. Patient will be discharged back to [facility]. Instructions to have sutures removed in 5 -7 days. Instructions to return for any worsening, new, or concerning symptoms. Patient to follow-up with ENT specialist. Family verbalizes understanding and agrees to this plan. 01/13/17 14:25 EKG obtained at 1403 reveals sinus rhythm with frequent and consecutive premature ventricular complexes and premature a tr complexes, left axis deviation, inferior infarct with age undetermined, possible anterior infarct age undetermined, T-wave abnormality. Ventricular rate 82, W[place] interval 198, QRS duration 122, QTC 444, QTC 518. No ST elevation or depression noted any relief. Compared exam to EKG obtained on 12/28/2016, changes appear chronic. - Radiology Data Radiology results: report reviewed CT of the facial bones with impression mild maxillary sinusitis. Nasal bone fracture of uncertain age. 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 There is noted minimal soft tissue swelling above the right orbit. CT of the brain reveals cerebral cortical atrophy, no mass effect or midline shift. There is no sign of intracranial hemorrhage. The calvarium is intact. Spondylotic changes in the cervical spinous processes of C4 to C5, C5 through C6. No fracture. No change compared to old exam. Disposition Clinical Impression: Fall in elderly patient, Laceration of eyebrow, Nasal bone fracture Disposition: HOME SELF-CARE Condition: Stable Instructions: Fall Prevention for Older Adults (ED), Nasal Fracture (ED), Care For Your Stitches (ED), Laceration (ED) Additional Instructions: Return for suture removal in 5-7 days. Keep laceration clean and dry. Cleanse area twice daily with antibacterial soap and warm water to prevent scabbing over the sutures. Follow up with ENT specialist. Return for any new, worsening , or concerning symptoms. Referrals: Robert Ryder MD [Primary Care Provider] - 1-2 days Prateek Nayak MD [STAFF PHYSICIAN] - 1-2 days Time of Disposition: 16:05
--- NOTE | 2017-01-13 14:57 | CT ---
EXAMINATION TYPE: CT facial bones wo con DATE OF EXAM: 01/13/2017 2:46 PM COMPARISON: NONE HISTORY: Fall and hit head. Pain. CT DLP: mGycm Automated exposure control for dose reduction was used. TECHNIQUE: CT scan of the sinuses is performed without contrast, axial images are obtained, coronal r eformatted images are also reviewed. FINDINGS: There is a nasal bone is deviated slightly to the left side suggestive of a fracture of unc ertain age. The zygomatic arches are intact. Orbital margins are intact. There is no evidence of a bl owout fracture. There is minimal mucosal thickening in the right maxillary sinus and to lesser extent left maxillary sinus. There is bilateral patency of the ostiomeatal complex. There is no evidence of an orbital mass. Mandibular ring is intact. There is spurring at the temporomandibular joints with j oint space narrowing. Temporal bones appear intact. IMPRESSION: No fracture. Mild maxillary sinusitis. Nasal bone fracture of uncertain age. 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 There is noted minimal soft tissue swelling above the right orbit .
[2017-01-13 15:40] VITALS: BP 139/79; RESP 16
--- NOTE | 2017-01-13 15:57 | CT ---
EXAMINATION TYPE: CT brain ismael wo con DATE OF EXAM: 01/13/2017 2:43 PM COMPARISON: 12/28/2016 HISTORY: Patient fell and hit head just above right orbit. Patient complains of headache and neck pa in. CT DLP: 1722.5 mGycm Automated exposure control for dose reduction was used. TECHNIQUE: CT scan of the head and cervical spine are performed without contrast. FINDINGS: There is cerebral cortical atrophy. There is no mass effect nor midline shift. There is n o sign of intracranial hemorrhage. The calvarium is intact. There is mild straightening of the cervical vertebra. There is degenerative disc space Arrant from C2 to C7 with spurring of the endplates. There is no compression fracture. There is bony spinal stenosi s at C4-5 C5-6 due to posterior endplate spur formation. There is multilevel hypertrophic facet arthr opathy. IMPRESSION: Cerebral atrophy. No acute intracranial abnormality. 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 No fracture. No change c ompared to old exam.
[2017-01-13 16:06] VITALS: TEMP 98.7
[2017-01-13 16:23] VITALS: PULSE 85
== END 2017-01-13 16:22 | disposition home or self-care (01) ==
LOC: EC 13:43
DX: S02.2XXA Fracture of nasal bones, initial encounter for closed fracture (principal); S01.111A Laceration without foreign body of right eyelid and periocular area, initial encounter; I25.10 Atherosclerotic heart disease of native coronary artery without angina pectoris; K21.9 Gastro-esophageal reflux disease without esophagitis; E78.5 Hyperlipidemia, unspecified; I11.0 Hypertensive heart disease with heart failure; I25.2 Old myocardial infarction; N42.9 Disorder of prostate, unspecified; G20 Parkinson's disease; K27.9 Peptic ulcer, site unspecified, unspecified as acute or chronic, without hemorrhage or perforation; I50.9 Heart failure, unspecified; G31.9 Degenerative disease of nervous system, unspecified; J32.0 Chronic maxillary sinusitis; F17.220 Nicotine dependence, chewing tobacco, uncomplicated; Z95.1 Presence of aortocoronary bypass graft; Z79.82 Long term (current) use of aspirin; Z79.899 Other long term (current) drug therapy; W06.XXXA Fall from bed, initial encounter; Y92.129 Unspecified place in nursing home as the place of occurrence of the external cause
CPT/HCPCS: 12011; 70450; 70486; 72125; 93005; 99284

== ENCOUNTER 2017-02-06 09:44 | Inpatient (IN) | payer MEDICARE, BC ==
--- NOTE | 2017-02-06 10:16 | ED ---
General Adult HPI - General Chief complaint: Shortness of Breath Stated complaint: LAWRENCE, RAPID WEIGHT GAIN Time Seen by Provider: 02/06/17 10:07 Source: patient, family, RN notes reviewed Mode of arrival: wheelchair Limitations: no limitations - History of Present Illness Initial comments: Patient is a pleasant 86-year-old male presenting to the emergency department with difficulty breathing. Symptoms started a couple days ago. Patient is a poor historian and majority of history comes from sun. Patient has had weight gain. Patient does have some leg swelling which is not normal for him. Patient has had similar symptoms previously associated with congestive heart failure. Patient does have occasional cough with occasional clear sputum. No fevers. No chest pain. - Related Data Home Medications Medication Instructions Recorded Confirmed Aspirin 81 mg PO DAILY 03/19/14 02/06/17 Carbidopa-Levodopa 25-100 mg 1 tab PO QID 03/19/14 02/06/17 [Sinemet 25-100 mg] Finasteride 5 mg PO DAILY@1200 03/19/14 02/06/17 rOPINIRole HCL [Requip] 2 mg PO QAM 03/19/14 02/06/17 Carvedilol [Coreg] 3.125 mg PO BID@0800,1600 01/25/15 02/06/17 Spironolactone [Aldactone] 25 mg PO DAILY@1200 12/28/16 02/06/17 levETIRAcetam [Keppra] 500 mg PO BID@1200,2000 12/28/16 02/06/17 rOPINIRole HCL [Requip] 3 mg PO HS@199912/28/16 02/06/17 Atorvastatin [Lipitor] 40 mg PO HS 02/06/17 02/06/17 Cefadroxil [Duricef] 500 mg PO Q12HR 02/06/17 02/06/17 Omeprazole [PriLOSEC] 40 mg PO DAILY 02/06/17 02/06/17 Potassium Chloride [Klor-Con 10] 10 meq PO DAILY 02/06/17 02/06/17 Trospium Chloride [Sanctura XR] 60 mg PO DAILY 02/06/17 02/06/17 Previous Rx's Medication Instructions Recorded Furosemide [Lasix] 20 mg PO BID #60 tablet 12/31/16 Allergies Allergy/AdvReac Type Severity Reaction Status Date / Time No Known Allergies Allergy Verified 02/06/17 10:33 Review of Systems ROS Statement: Those systems with pertinent positive or pertinent negative responses have been documented in the HPI. ROS Other: All systems not noted in ROS Statement are negative. Constitutional: Denies: fever, chills Eyes: Denies: eye pain ENT: Denies: ear pain Respiratory: Reports: cough, dyspnea Cardiovascular: Denies: chest pain Endocrine: Denies: fatigue Gastrointestinal: Denies: abdominal pain Genitourinary: Denies: dysuria Musculoskeletal: Denies: back pain Skin: Denies: rash Neurological: Denies: weakness Past Medical History Past Medical History: Blood Disorder, Coronary Artery Disease (CAD), Chest Pain / Angina, Heart Failure, GERD/Reflux, Hyperlipidemia, Hypertension, Myocardial Infarction ([place]), Prostate Disorder, Sleep Apnea/CPAP/BIPAP Additional Past Medical History / Comment(s): Sliding hiatal hernia, mild gastritis, diverticulosis, GE reflux, hyperlipidemia, hypertension, coronary artery disease with previous bypass surgery, previous [place], chronic anemia, colonic polyp (right colon), obesity, mild aneurysmal dilatation of the ascending aorta, PARKINSONS, DIVERTIUCLAR DISEASE, CPAP MACHINE, PEPTIC ULCERS, ANEMIA, BPH,UTI,FALLS(06-29-15 FELL OFF LADDER-HEAD INJURY AND FX LT COLLAR BONE - NO SX. FEEL AGAIN 10-14-15 ) Last Myocardial Infarction Date:: 1996 History of Any Multi-Drug Resistant Organisms: None Reported Past Surgical History: Coronary Bypass/CABG, Heart Catheterization, Heart Catheterization With Stent, Joint Replacement, Tonsillectomy Additional Past Surgical History / Comment(s): 2 VESSEL CABG 30 YRS AGO. knee replacement 20yrs ago, StentS placed 2011,ERENDIRA ARTHROTOMY, FINGER SX, EGD/ COLONNOSCOPY,RT FOOT SX. Past Anesthesia/Blood Transfusion Reactions: No Reported Reaction Additional Past Anesthesia/Blood Transfusion Reaction / Comment(s): Pt takes a long time waking up after general anesthesia. PER PST MEDICL HX-HAD BLOOD TRANSFUSION-NO REACTION TOIT. Date of Last Stent Placement:: 2011 Past Psychological History: No Psychological Hx Reported Additional Psychological History / Comment(s): Pt lives with his in their home. Pt is independent normally. Lately he has been encouraged to use a walker by his family. 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 Smoking Status: Never smoker Past Alcohol Use History: Occasional Additional Past Alcohol Use History / Comment(s): OCCAS. BEER DRINKER APPROX 1 A MONTH, CHEWED TOBACCO SINCE AGE 19 Past Drug Use History: None Reported - Past Family History Father Family Medical History: Cancer, Chest Pain / Angina, Congestive Heart Failure ( CHF), Coronary Artery Disease (CAD), Hypertension, Myocardial Infarction ([place]) Mother Additional Family Medical History / Comment(s): hit by a car causing General Exam Limitations: no limitations General appearance: alert, in no apparent distress Head exam: Present: atraumatic Eye exam: Present: normal appearance, PERRL ENT exam: Present: normal oropharynx Neck exam: Present: normal inspection Respiratory exam: Present: rales Cardiovascular Exam: Present: regular rate, normal rhythm Expanded Peripheral pulses: 2+: Radial (R), Radial (L), Posterior Tibialis (R), Posterior Tibialis (L) GI/Abdominal exam: Present: soft. Absent: tenderness Extremities exam: Present: pedal edema (+1 bilateral). Absent: calf tenderness Back exam: Present: normal inspection Neurological exam: Present: alert Psychiatric exam: Present: normal affect, normal mood Skin exam: Absent: rash Course Vital Signs 02/06/17 02/06/17 02/06/17 09:53 10:04 10:10 Temperature 97.7 F Pulse Rate 65 75 Respiratory 26 H 16 Rate Blood Pressure 83/51 78/57 84/60 O2 Sat by Pulse 96 100 Oximetry EKG Findings - EKG Comments: EKG Findings:: Sinus rhythm at 75. PVC is present. RI 182. QRS 102. QT 422. QTC 471. Left axis. Normal QRS. Normal ST-T. Medical Decision Making - Medical Decision Making Patient reevaluated and resting comfortably in bed. Patient and family updated on results and plan. Case discussed in detail with Dr. Strickland, who will admit for Dr. Sanders. - Lab Data Result diagrams: 02/06/17 10:23 02/06/17 10:23 Lab Results 02/06/17 02/06/17 02/06/17 Range/Units 10:23 10:23 10:23 WBC 8.9 (3.8-10.6) k/uL RBC 4.23 L (4.30-5.90) m/uL Hgb 11.5 L (13.0-17.5) gm/dL Hct 37.0 L (39.0-53.0) % MCV 87.5 (80.0-100.0) fL MCH 27.2 (25.0-35.0) pg MCHC 31.1 (31.0-37.0) g/dL RDW 17.3 H (11.5-15.5) % Plt Count 183 (150-450) k/uL Neutrophils % 78 % Lymphocytes % 11 % Monocytes % 7 % Eosinophils % 2 % Basophils % 1 % Neutrophils # 6.9 (1.3-7.7) k/uL Lymphocytes # 1.0 (1.0-4.8) k/uL Monocytes # 0.6 (0-1.0) k/uL Eosinophils # 0.2 (0-0.7) k/uL Basophils # 0.1 (0-0.2) k/uL Hypochromasia Slight Anisocytosis Slight PT (9.0-12.0) sec INR (<1.1) APTT (22.0-30.0) sec Sodium 136 L (137-145) mmol/L Potassium 4.5 (3.5-5.1) mmol/L Chloride 106 (98-107) mmol/L Carbon Dioxide 20 L (22-30) mmol/L Anion Gap 10 mmol/L BUN 23 H (9-20) mg/dL Creatinine 1.31 H (0.66-1.25) mg/dL Est GFR (MDRD) Af Amer >60 (>60 ml/min/1.73 sqM) Est GFR (MDRD) Non-Af 52 (>60 ml/min/1.73 sqM) Glucose 91 (74-99) mg/dL Calcium 8.7 (8.4-10.2) mg/dL Total Bilirubin 1.1 (0.2-1.3) mg/dL AST 22 (17-59) U/L ALT 16 L (21-72) U/L Alkaline Phosphatase 158 H (38-126) U/L Total Creatine Kinase 85 (55-170) U/L CK-MB (CK-2) 3.8 H* (0.0-2.4) ng/mL CK-MB (CK-2) Rel Index 4.5 Troponin I 0.069 H* (0.000-0.034) ng/mL NT-Pro-B Natriuret Pep pg/mL Total Protein 6.3 (6.3-8.2) g/dL Albumin 3.4 L (3.5-5.0) g/dL 02/06/17 02/06/17 Range/Units 10:23 10:23 WBC (3.8-10.6) k/uL RBC (4.30-5.90) m/uL Hgb (13.0-17.5) gm/dL Hct (39.0-53.0) % MCV (80.0-100.0) fL MCH (25.0-35.0) pg MCHC (31.0-37.0) g/dL RDW (11.5-15.5) % Plt Count (150-450) k/uL Neutrophils % % Lymphocytes % % Monocytes % % Eosinophils % % Basophils % % Neutrophils # (1.3-7.7) k/uL Lymphocytes # (1.0-4.8) k/uL Monocytes # (0-1.0) k/uL Eosinophils # (0-0.7) k/uL Basophils # (0-0.2) k/uL Hypochromasia Anisocytosis PT 11.5 (9.0-12.0) sec INR 1.2 (<1.1) APTT 25.6 (22.0-30.0) sec Sodium (137-145) mmol/L Potassium (3.5-5.1) mmol/L Chloride (98-107) mmol/L Carbon Dioxide (22-30) mmol/L Anion Gap mmol/L BUN (9-20) mg/dL Creatinine (0.66-1.25) mg/dL Est GFR (MDRD) Af Amer (>60 ml/min/1.73 sqM) Est GFR (MDRD) Non-Af (>60 ml/min/1.73 sqM) Glucose (74-99) mg/dL Calcium (8.4-10.2) mg/dL Total Bilirubin (0.2-1.3) mg/dL AST (17-59) U/L ALT (21-72) U/L Alkaline Phosphatase (38-126) U/L Total Creatine Kinase (55-170) U/L CK-MB (CK-2) (0.0-2.4) ng/mL CK-MB (CK-2) Rel Index Troponin I (0.000-0.034) ng/mL NT-Pro-B Natriuret Pep 70818 pg/mL Total Protein (6.3-8.2) g/dL Albumin (3.5-5.0) g/dL - Radiology Data Radiology results: image reviewed (Chest x-ray shows suspected CHF. Cardiomegaly with vascular congestion.) Disposition Clinical Impression: Congestive heart failure Disposition: ADMITTED IP TO THIS HOSP Time of Disposition: 11:42
[2017-02-06 10:41] LABS: Anisocytosis Slight; Basophils # (A) 0.1 k/uL (0-0.2); Basophils % (A) 1 %; CH 27.3; CHCM 31.5; Eosinophils # (A) 0.2 k/uL (0-0.7); Eosinophils % (A) 2 %; HDW 3.18; HGB 11.5 gm/dL (13.0-17.5); Hypochromasia Slight; Luc # (Auto) 0.16; Luc % (Auto) 2; Lymphocytes % (A) 11 %; MCH 27.2 pg (25.0-35.0); MCHC 31.1 g/dL (31.0-37.0); MCV 87.5 fL (80.0-100.0); Mean Platelet Volume 8.2; Monocytes # (A) 0.6 k/uL (0-1.0); Monocytes % (A) 7 %; Neutrophils # (A) 6.9 k/uL (1.3-7.7); Neutrophils % (A) 78 %; RBC 4.23 m/uL (4.30-5.90); RDW 17.3 % (11.5-15.5); WBC 8.9 k/uL (3.8-10.6); WBC (Perox) 9.07
[2017-02-06 10:53] LABS: INR 1.2 (<1.1); Prothrombin Time 11.5 sec (9.0-12.0)
[2017-02-06 10:54] LABS: Partial Thromboplastin Time 25.6 sec (22.0-30.0)
--- NOTE | 2017-02-06 10:54 | XR ---
EXAMINATION TYPE: XR chest 2V DATE OF EXAM: 02/06/2017 10:35 AM COMPARISON: Prior chest x-ray December 30, 2016. HISTORY: Difficulty in breathing. TECHNIQUE: Frontal and lateral views of the chest are obtained. FINDINGS: Sternal wires and mediastinal clips are redemonstrated. There is persistent cardiomegaly wi th mild to moderate central vascular congestion. There is suggestion of small bilateral pleural effus ions on lateral x-ray with blunting of posterior costophrenic angles. Some underlying bibasilar infil trate and/or atelectasis is difficult to exclude on lateral x-ray. Advanced degenerative change right shoulder is redemonstrated. IMPRESSION: Suspect CHF exacerbation as there is cardiomegaly with mild to moderate central vascular congestion and small bilateral pleural effusions all identified.
[2017-02-06 10:58] LABS: ALT 16 U/L (21-72); AST 22 U/L (17-59); Alkaline Phosphatase 158 U/L (38-126); Anion Gap 10 mmol/L; Blood Urea Nitrogen 23 mg/dL (9-20); Calcium 8.7 mg/dL (8.4-10.2); Carbon Dioxide 20 mmol/L (22-30); Chloride 106 mmol/L (98-107); Glucose 91 mg/dL (74-99); Non-African American GFR(MDRD) 52 (>60 ml/min/1.73 sqM); Potassium 4.5 mmol/L (3.5-5.1); Sodium 136 mmol/L (137-145); Total Bilirubin 1.1 mg/dL (0.2-1.3); Total Protein 6.3 g/dL (6.3-8.2)
[2017-02-06 11:26] LABS: Creatine Kinase MB 3.8 ng/mL (0.0-2.4); Troponin I 0.069 ng/mL (0.000-0.034)
[2017-02-06] MEDS ORDERED: ASPIRIN 325 MG TAB PO STA (11:42)
[2017-02-06] MEDS ORDERED: NITROGLYCERIN OINT 1 INCH/GM PACKET TOPICAL SCH (13:00)
[2017-02-06] MEDS ORDERED: DOPamine DRIP 800 MG in DEXTROSE/WATER 1 500ML.BAG IV SCH (14:45)
--- NOTE | 2017-02-06 14:50 | P.CRDCN ---
History of Present Illness Consult date: 02/06/17 History of present illness: This is a 86-year-old gentleman with history of hypertension hyperlipidemia aortic valve disease and with history of recurrent falls and also subdural hematomas in the past. Patient also has history of atrial fibrillation. Patient had echocardiogram done in September 2016 and her aortic valve appeared to be moderate to severely stenotic the patient did not want any intervention at the time. Patient has been doing fairly well until a few days ago. Over the last few days patient has become progressively short of breath with wheezing. Denied any fever or chills or cough. His chest x-ray here showed evidence of for bilateral congestion and pleural effusions. Patient also has gained a few pounds. His blood pressure is running low. We will start him on dopamine for blood pressure support and we'll continue with IV Lasix. We will hold Coreg and also nitro paste at this time. Further recommendations depend upon the clinical course. Prognosis is guarded. EKGs did not reveal any acute changes Review of Systems Not obtained Past Medical History Past Medical History: Coronary Artery Disease (CAD), Chest Pain / Angina, Heart Failure, GERD/Reflux, Hyperlipidemia, Hypertension, Myocardial Infarction (MA), Musculoskeletal Disorder, Neurologic Disorder, Osteoarthritis (OA), Prostate Disorder, Renal Disease, Sleep Apnea/CPAP/BIPAP Additional Past Medical History / Comment(s): Recent admission to [facility] with cellulitis scalp. 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 Last Myocardial Infarction Date:: 2011 History of Any Multi-Drug Resistant Organisms: None Reported Past Surgical History: Coronary Bypass/CABG, Heart Catheterization, Heart Catheterization With Stent, Joint Replacement, Tonsillectomy Additional Past Surgical History / Comment(s): 2 VESSEL CABG 30 YRS AGO, bilateral knee replacements, stents placed 2011, ERENDIRA shoulder ARTHROTOMY, FINGER SX, EGD/COLONNOSCOPY,RT FOOT SX. Past Anesthesia/Blood Transfusion Reactions: No Reported Reaction Additional Past Anesthesia/Blood Transfusion Reaction / Comment(s): Pt takes a long time waking up after general anesthesia. HAD BLOOD TRANSFUSION-NO REACTION TO IT. Date of Last Stent Placement:: 2011 Past Psychological History: No Psychological Hx Reported Additional Psychological History / Comment(s): Pt lives with his in their home. Pt is independent normally. He uses a walker to ambulate. He drives minimally. Smoking Status: Never smoker Past Alcohol Use History: Occasional Additional Past Alcohol Use History / Comment(s): OCCAS. BEER DRINKER APPROX 1 A MONTH, CHEWED TOBACCO SINCE AGE 19 Past Drug Use History: None Reported - Past Family History Father Family Medical History: Cancer, Chest Pain / Angina, Congestive Heart Failure ( CHF), Coronary Artery Disease (CAD), Hypertension, Myocardial Infarction (MA) Mother Additional Family Medical History / Comment(s): hit by a car causing Medications and Allergies Home Medications Medication Instructions Recorded Confirmed Type Aspirin 81 mg PO DAILY 03/19/14 02/06/17 History Carbidopa-Levodopa 25-100 mg 1 tab PO QID 03/19/14 02/06/17 History [Sinemet 25-100 mg] Finasteride 5 mg PO DAILY@1200 03/19/14 02/06/17 History rOPINIRole HCL [Requip] 2 mg PO QAM 03/19/14 02/06/17 History Carvedilol [Coreg] 3.125 mg PO BID@0800,1600 01/25/15 02/06/17 History Spironolactone [Aldactone] 25 mg PO DAILY@1200 12/28/16 02/06/17 History levETIRAcetam [Keppra] 500 mg PO BID@1199,199912/28/16 02/06/17 History rOPINIRole HCL [Requip] 3 mg PO HS@199912/28/16 02/06/17 History Atorvastatin [Lipitor] 40 mg PO HS 02/06/17 02/06/17 History Cefadroxil [Duricef] 500 mg PO Q12HR 02/06/17 02/06/17 History Omeprazole [PriLOSEC] 40 mg PO DAILY 02/06/17 02/06/17 History Potassium Chloride [Klor-Con 10] 10 meq PO DAILY 02/06/17 02/06/17 History Trospium Chloride [Sanctura XR] 60 mg PO DAILY 02/06/17 02/06/17 History Allergies Allergy/AdvReac Type Severity Reaction Status Date / Time No Known Allergies Allergy Verified 02/06/17 10:33 Physical Exam Vitals: Vital Signs Temp Pulse Pulse Resp BP BP Pulse Ox 02/06/17 14:37 96.8 F L 87 20 94/59 100 02/06/17 14:16 73 16 73/56 98 02/06/17 13:17 97.9 F 79 16 96/53 100 02/06/17 12:10 98 F 75 18 96/64 99 Limits 86-year-old gentleman who is alert appears in [id number] distress. GENERAL EXAM: Patient is alert HEENT: Normocephalic. Normal reaction of pupils, equal size, normal range of extraocular motion. No erythema or exudates in the throat. NECK: No masses, no nuchal rigidity. CHEST: No chest wall deformity. LUNGS: Bilateral wheezing and rhonchi. HEART: S1 and S2 normal with no audible mumurs or gallops. Regular rhythm, femorals equal on both sides.. ABDOMEN: No hepatosplenomegaly, normal bowel sounds, no guarding or rigidity. SKIN: No rashes CENTRAL NERVOUS SYSTEM: No focal deficits. EXTREMITIES: No cyanosis, clubbing or edema. Results 02/06/17 10:23 02/06/17 10:23 Current Medications Generic Name Dose Route Start Last Admin Trade Name Freq PRN Reason Stop Dose Admin Aspirin 325 mg 02/07/17 09:00 Aspirin PO DAILY [facility] Furosemide 40 mg 02/06/17 14:00 Lasix IV Q8H [facility] Dopamine HCl/Dextrose 800 mg/ 500 mls @ 8.71 mls/hr 02/06/17 14:45 IV Solution IV .Q24H [facility] Protocol 2.5 MCG/KG/MIN Sodium Chloride 10 ml 02/06/17 21:00 Saline Flush IV BID [facility] EKG Interpretations (text) Sinus rhythm with PVCs Assessment and Plan (1) Ischemic heart disease Status: Acute (2) Congestive heart failure Status: Acute (3) Acute exacerbation of chronic obstructive airways disease Status: Acute (4) Aortic stenosis Status: Acute (5) Bradycardia Status: Acute Plan: Plan I'll start him on IV dopamine 2.5 mics KG per minute and will continue with Lasix and will hold the rest of the medications. We'll also get pulmonary consult for evaluation underlying COPD and possible pneumonia. Patient prognosis is guarded. Patient didn't want to have any intervention for aortic stenosis in the past. Further comminution depend upon the clinical course.
[2017-02-06] MEDS: FUROSEMIDE 10 MG/ML 4 ML VIAL IV SCH ×2 (14:54→21:28)
[2017-02-06] MEDS ORDERED: Potassium Replacement Protocol 1 EACH MISC MISCELLANE PRN (14:59)
[2017-02-06] MEDS: DOPamine DRIP 800 MG in DEXTROSE/WATER 1 500ML.BAG IV SCH (16:48)
[2017-02-06] MEDS: CARBIDOPA-LEVODOPA 25-100 MG 1 EACH TAB PO SCH ×2 (16:49→21:28)
[2017-02-06] MEDS: ATORVASTATIN 40 MG TAB PO SCH (20:26)
[2017-02-06] MEDS: levETIRAcetam 500 MG TAB PO SCH (20:26)
[2017-02-06] MEDS ORDERED: ATORVASTATIN 80 MG TAB PO SCH (21:00)
[2017-02-07] MEDS: ALPRAZolam 0.25 MG TAB PO PRN ×2 (01:42→09:18)
[2017-02-07] MEDS: HYDROcodone/APAP 5-325MG 1 EACH TAB PO PRN (02:32)
[2017-02-07 03:39] LABS: Appearance,Urine Clear (Clear); Bacteria,Urine Occasional /hpf; Bilirubin,Urine Negative (Negative); Glucose,Urine (UA) Negative (Negative); Ketones,Urine Negative (Negative); Leukocyte Esterase,Urine Moderate (Negative); Mucus,Urine Rare /hpf; Nitrite,Urine Negative (Negative); Particle Count 1079; Protein,Urine Negative (Negative); RBC,Urine 113 /hpf (0-5); Specific Gravity,Urine 1.006 (1.001-1.035); UA Billing (MACRO vs. MICRO) MICRO; Urobilinogen,Urine <2.0 mg/dL (<2.0); WBC,Urine 11 /hpf (0-5)
[2017-02-07] MEDS ORDERED: diphenhydrAMINE 25 MG CAP PO PRN (03:44)
[2017-02-07 06:32] LABS: Anion Gap 12 mmol/L; Blood Urea Nitrogen 24 mg/dL (9-20); Carbon Dioxide 23 mmol/L (22-30); Chloride 103 mmol/L (98-107); Glucose 105 mg/dL (74-99); Non-African American GFR(MDRD) 53 (>60 ml/min/1.73 sqM); Potassium 4.3 mmol/L (3.5-5.1); Sodium 138 mmol/L (137-145)
[2017-02-07] MEDS: FUROSEMIDE 10 MG/ML 4 ML VIAL IV SCH ×3 (06:51→22:09)
[2017-02-07] MEDS: PANTOPRAZOLE 40 MG TABLET PO SCH (06:51)
[2017-02-07 07:41] LABS: Anisocytosis Slight; Basophils # (A) 0.1 k/uL (0-0.2); Basophils % (A) 0 %; CH 27.4; CHCM 32.5; Eosinophils # (A) 0.1 k/uL (0-0.7); Eosinophils % (A) 1 %; HCT 37.3 % (39.0-53.0); HGB 12.3 gm/dL (13.0-17.5); Hypochromasia Slight; Luc # (Auto) 0.24; Luc % (Auto) 2; Lymphocytes % (A) 8 %; MCH 28.1 pg (25.0-35.0); MCHC 33.1 g/dL (31.0-37.0); MCV 84.9 fL (80.0-100.0); Mean Platelet Volume 7.9; Monocytes # (A) 0.9 k/uL (0-1.0); Monocytes % (A) 8 %; Neutrophils % (A) 81 %; RDW 16.8 % (11.5-15.5); WBC 12.2 k/uL (3.8-10.6); WBC (Perox) 13.46
[2017-02-07] MEDS: ASPIRIN 81 MG CHEW PO SCH (08:50)
[2017-02-07] MEDS: CARBIDOPA-LEVODOPA 25-100 MG 1 EACH TAB PO SCH ×4 (08:51→21:13)
[2017-02-07] MEDS: OXYBUTYNIN XL 5 MG TAB.ER.24 PO SCH (08:51)
[2017-02-07 08:58] LABS: Manual Review Performed; Ovalocytes Present; Polychromasia Present
[2017-02-07 08:59] LABS: Spherocytes Present
[2017-02-07] MEDS ORDERED: ASPIRIN 325 MG TAB PO SCH (09:00)
--- NOTE | 2017-02-07 09:50 | HP ---
DATE OF ADMISSION: CHIEF COMPLAINT: Shortness of breath. HISTORY OF PRESENT ILLNESS: This 86-year-old gentleman with a past medical history of multiple medical problems including of CAD, history of chest pain, CHF, GERD, hypertension, hyperlipidemia, myocardial infarction , history of DJD, history of prostate disorder, sleep apnea being, CAD, CABG, stent being followed by Dr. Valdez in the outpatient setting was admitted to [facility] recently with cellulitis of the scalp and also has history of Parkinson disease also. Currently, the patient was complaining of shortness of breath over the past several days. Because of increasing difficulties, the patient came to [facility] and was admitted for further evaluation and treatment. The patient also complains of leg edema. Patient also has some weight gain. Because occasional cough also was reported, which was wet cough according to the family and because of increasing difficulty patient came to [facility] and a chest x-ray was done, which I reviewed showed CHF acute exacerbation, cardiomegaly and moderate central vascular congestion, possible small bilateral pleural effusions also noted. Patient was started on IV diuretics. Patient is being closely monitored. Cardiology evaluation in progress. There is no history of any fever or rigors. No history of headache, loss of consciousness or seizures. PAST MEDICAL HISTORY: History of CAD, history of CHF, GERD, hypertension, hyperlipidemia, myocardial infarction, history of DJD, prostate disorder, history of CAD, CABG, stent. Medications prior to admission include home medications are: 1. Requip 3 mg q.h.s. 2. Requip 2 mg q.a.m. 3. Keppra 500 mg p.o. b.i.d. 4. Sanctura XR 60 mg p.o. daily. 5. Aldactone 25 mg. 6. Klor-Con 10 mEq p.o. daily. 7. Prilosec 40 mg p.o. daily. 8. Lasix 20 mg p.o. b.i.d. 9. Finasteride 5 mg p.o. daily. 10. Duricef 500 mg p.o. b.i.d. 11. Coreg 3.125 mg p.o. b.i.d. 12. Sinemet 25/100 one p.o. q.i.d. 13. Lipitor 40 mg q.h.s. 14. Aspirin 81 mg p.o. daily. ALLERGIES: None. FAMILY HISTORY: History of cancer, chest pain, CHF, CAD, hypertension, myocardial infarction. SOCIAL HISTORY: Occasional alcohol intake. No history of smoking. REVIEW OF SYSTEMS: ENT: Diminishing hearing and diminished vision. CARDIOVASCULAR: As mentioned earlier. RESPIRATORY: As mentioned earlier. GI: No nausea. : No dysuria. NERVOUS SYSTEM: No numbness or weakness. ALLERGY/IMMUNOLOGY: No history of asthma or hayfever. MUSCULOSKELETAL: As mentioned earlier. HEMATOLOGY/ONCOLOGY: No history of anemia. ENDOCRINE: As mentioned earlier. CONSTITUTIONAL: As mentioned earlier. DERMATOLOGY: Negative. RHEUMATOLOGY: Negative. PSYCHIATRY: As mentioned earlier. PHYSICAL EXAMINATION: The patient is alert and oriented x3. Pulse is 109, blood pressure 107/69, respirations 20, temperature 97.3, pulse ox 94% on 2 L. HEENT: Conjunctivae normal. Oral mucosa moist. NECK: Jugular venous pulses elevated. CARDIOVASCULAR: S1 and S2, muffled. Ejection murmur. No S3, no S4. RESPIRATORY: Breath sounds diminished at the bases. Bilateral scattered rhonchi and wet crackles in the bases present bilaterally. ABDOMEN: Soft, obese, nontender. No mass palpable. LEGS: Bilateral leg edema. NERVOUS SYSTEM: Higher function as mentioned. Moves all 4 limbs. No focal motor or sensory deficits. LYMPHATICS: No lymphadenopathy of neck, axillae or groin. SKIN: As mentioned earlier. Dry skin in the legs present. JOINTS: No active deforming arthropathy. LAB INVESTIGATIONS: A 2-D echo performed last year showed multiple mild valvular abnormalities, dilated, and with mild to moderate impairment with 40% to 45%, moderate aortic stenosis also noted and mild aortic regurgitation, moderate pulmonary hypertension was also noted. ASSESSMENT: 1. Congestive heart failure acute exacerbation with acute on chronic systolic dysfunction, ejection fraction 40% to 45%. 2. Moderate aortic stenosis. 3. Anemia, normocytic anemia of chronic disease. 4. Hyponatremia. 5. Increased creatinine with possible acute renal failure on acute renal failure, possible prerenal factors. 6. Troponin 0.069, indeterminate. 7. Rule out acute coronary syndrome. 8. History of coronary artery disease. 9. History of gastroesophageal reflux disease. 10. Hypertension. 11. Hyperlipidemia. 12. History of myocardial infarction . 13. History of Parkinson's. 14. History of degenerative joint disease. 15. Gait dysfunction. 16. Sleep apnea. 17. History of recent scalp cellulitis. 18. History of gastritis. 19. History of chronic kidney disease, stage III. 20. History of peptic ulcer disease. 21. History of coronary artery disease, coronary artery bypass graft, stent. 22. Hypoalbuminemia. 23. NO CODE, NO CPR, NO VENT. RECOMMENDATIONS AND DISCUSSION: In this 86-year-old gentleman who presented with multiple complex medical issues, we will monitor the patient closely. Continue the current medications. I diuretics, monitor fluid and electrolytes balance closely. Resume the home medications. We will continue to monitor. Otherwise, we also monitor renal functions also. I recommend withhold Aldactone at this time because of the renal failure. Continue the rest of the medications. Monitor electrolytes closely. DVT prophylaxis. Guarded prognosis because of multiple complex medical issues. Further recommendations to follow. Discussed with patient and patient's family. Further recommendations to follow. MTDD
[2017-02-07] MEDS: FINASTERIDE 5 MG TAB PO SCH (12:26)
[2017-02-07] MEDS: levETIRAcetam 500 MG TAB PO SCH ×2 (12:27→21:11)
[2017-02-07] MEDS ORDERED: IPRATROPIUM-ALBUTEROL 3 ML NEB INHALATION PRN (13:15)
[2017-02-07 15:19] VITALS: BMI 26.0
--- NOTE | 2017-02-07 15:45 | US ---
EXAMINATION TYPE: US chest DATE OF EXAM: 02/07/2017 3:35 PM COMPARISON: CLINICAL HISTORY: bilateraly pl effusions. Bilateral pleural effusions EXAM MEASUREMENTS: Left Pleural Effusion fluid pocket: 1.9 cm Right side not marked for possible thoracentesis outside the dept. Left side not marked for possible thoracentesis outside the dept. Pulmonologists are able to review the images in the patient?s EMR. IMPRESSIONS: 1. Small left pleural effusion
--- NOTE | 2017-02-07 17:21 | P.CNPUL ---
History of Present Illness Consult date: 02/07/17 Requesting physician: Katya Strickland Reason for consult: COPD Chief complaint: Shortness of breath History of present illness: This is an 86-year-old male who is being evaluated and examined today on the selective care unit. He came into the emergency room with difficulty in breathing had been progressing over the last 2 days. This patient is a very poor historian and from what confused at times. The patient has also had some weight gain and some leg swelling that is not normal for him. The patient was in the hospital previously with similar symptoms and it was associated with congestive heart failure. Chest x-ray results reviewed and suggest CHF exacerbation and small bilateral pleural effusions. It is unclear if the patient wears home oxygen or not. Upon examination the patient does have an occasional cough with clear sputum. He denies any fevers chest pain. Review of Systems 14 point review of systems was completed and is negative other than what's noted in the HPI. Past Medical History Past Medical History: Coronary Artery Disease (CAD), Chest Pain / Angina, Heart Failure, GERD/Reflux, Hyperlipidemia, Hypertension, Myocardial Infarction (SD), Musculoskeletal Disorder, Neurologic Disorder, Osteoarthritis (OA), Prostate Disorder, Renal Disease, Sleep Apnea/CPAP/BIPAP Additional Past Medical History / Comment(s): Recent admission to [facility] with cellulitis scalp. 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 Last Myocardial Infarction Date:: 2011 History of Any Multi-Drug Resistant Organisms: None Reported Past Surgical History: Coronary Bypass/CABG, Heart Catheterization, Heart Catheterization With Stent, Joint Replacement, Tonsillectomy Additional Past Surgical History / Comment(s): 2 VESSEL CABG 30 YRS AGO, bilateral knee replacements, stents placed 2011, ERENDIRA shoulder ARTHROTOMY, FINGER SX, EGD/COLONNOSCOPY,RT FOOT SX. Past Anesthesia/Blood Transfusion Reactions: No Reported Reaction Additional Past Anesthesia/Blood Transfusion Reaction / Comment(s): Pt takes a long time waking up after general anesthesia. HAD BLOOD TRANSFUSION-NO REACTION TO IT. Date of Last Stent Placement:: 2011 Past Psychological History: No Psychological Hx Reported Additional Psychological History / Comment(s): Pt lives with his in their home. Pt is independent normally. He uses a walker to ambulate. He drives minimally. Smoking Status: Never smoker Past Alcohol Use History: Occasional Additional Past Alcohol Use History / Comment(s): OCCAS. BEER DRINKER APPROX 1 A MONTH, CHEWED TOBACCO SINCE AGE 19 Past Drug Use History: None Reported - Past Family History Father Family Medical History: Cancer, Chest Pain / Angina, Congestive Heart Failure ( CHF), Coronary Artery Disease (CAD), Hypertension, Myocardial Infarction (SD) Mother Additional Family Medical History / Comment(s): hit by a car causing Medications and Allergies Home Medications Medication Instructions Recorded Confirmed Type Aspirin 81 mg PO DAILY 03/19/14 02/06/17 History Carbidopa-Levodopa 25-100 mg 1 tab PO QID 03/19/14 02/06/17 History [Sinemet 25-100 mg] Finasteride 5 mg PO DAILY@1200 03/19/14 02/06/17 History rOPINIRole HCL [Requip] 2 mg PO QAM 03/19/14 02/06/17 History Carvedilol [Coreg] 3.125 mg PO BID@0800,1600 01/25/15 02/06/17 History Spironolactone [Aldactone] 25 mg PO DAILY@1200 12/28/16 02/06/17 History levETIRAcetam [Keppra] 500 mg PO BID@1200,199912/28/16 02/06/17 History rOPINIRole HCL [Requip] 3 mg PO HS@199912/28/16 02/06/17 History Atorvastatin [Lipitor] 40 mg PO HS 02/06/17 02/06/17 History Cefadroxil [Duricef] 500 mg PO Q12HR 02/06/17 02/06/17 History Omeprazole [PriLOSEC] 40 mg PO DAILY 02/06/17 02/06/17 History Potassium Chloride [Klor-Con 10] 10 meq PO DAILY 02/06/17 02/06/17 History Trospium Chloride [Sanctura XR] 60 mg PO DAILY 02/06/17 02/06/17 History Allergies Allergy/AdvReac Type Severity Reaction Status Date / Time No Known Allergies Allergy Verified 02/06/17 10:33 Physical Exam Vitals: Vital Signs Temp Pulse Pulse Resp BP BP Pulse Ox 02/07/17 12:00 75 20 95/58 96 02/07/17 08:30 95 02/07/17 08:00 97 F L 80 20 104/68 95 02/07/17 04:00 97.0 F L 55 L 20 97/66 96 02/07/17 00:00 97.6 F 106 H 22 123/74 92 L 02/06/17 20:00 97.3 F L 109 H 22 107/69 94 L 02/06/17 17:52 97 24 113/55 97 02/06/17 16:45 73 18 104/75 99 02/06/17 16:30 73 20 02/06/17 15:42 97 02/06/17 14:54 96.8 F L 87 18 94/59 100 02/06/17 14:37 96.8 F L 87 20 94/59 100 02/06/17 14:16 73 16 73/56 98 Intake and Output 02/06/17 02/07/17 02/07/17 22:59 06:59 14:59 Intake Total 100 50 315 Output Total 950 3150 Balance -850 -3100 315 Intake: IV 50 75 DOPamine DRIP 800 mg In 50 75 Dextrose/Water 1 500ml. bag @ 2.5 MCG/KG/MIN 8.71 mls/hr IV .Q24H [facility] Rx#: [id number] Oral 100 240 Output: Urine 950 3150 Other: Voiding Method Indwelling Catheter Indwelling Catheter Indwelling Catheter # Voids 1 1 Weight 87.1 kg GENERAL EXAM: Alert, active, comfortable in no apparent distress. HEAD: Normocephalic. EYES: Normal reaction of pupils, equal size. NOSE: Clear with pink turbinates. THROAT: No erythema or exudates. NECK: No masses, no JVD. CHEST: No chest wall deformity. LUNGS: Equal air entry with few scattered rhonchi and crackles at the bases. CVS: S1 and S2 normal with no audible mumurs, regular rhythm. ABDOMEN: No hepatosplenomegaly, normal bowel sounds, no guarding or rigidity. EXTREMITIES: 1-2+ edema noted, pedal pulses palpable. SKIN: No rashes, dry CENTRAL NERVOUS SYSTEM: No focal deficits, tone is normal in all 4 extremities. Results - Laboratory Findings CBC and BMP: 02/07/17 05:48 02/07/17 05:48 PT/INR, D-dimer PT 11.5 sec (9.0-12.0) 02/06/17 10:23 INR 1.2 (<1.1) 02/06/17 10:23 Abnormal lab findings: Abnormal Labs 02/06/17 02/06/17 02/07/17 16:05 22:00 03:20 WBC Hgb Hct RDW Neutrophils # BUN Creatinine Glucose Troponin I 0.057 H* 0.045 H* Urine Blood Moderate H Ur Leukocyte Esterase Moderate H Urine RBC 113 H Urine WBC 11 H Urine Bacteria Occasional H Urine Mucus Rare H 02/07/17 02/07/17 05:48 05:48 WBC 12.2 H Hgb 12.3 L Hct 37.3 L RDW 16.8 H Neutrophils # 10.0 H BUN 24 H Creatinine 1.29 H Glucose 105 H Troponin I Urine Blood Ur Leukocyte Esterase Urine RBC Urine WBC Urine Bacteria Urine Mucus - Diagnostic Findings Chest x-ray: report reviewed, image reviewed Assessment and Plan Plan: Assessment Acute on chronic congestive heart failure, systolic dysfunction EF 40-45% Acute exacerbation of COPD Bilateral pleural effusions Pulmonary hypertension Moderate aortic stenosis Anemia, normocytic, anemia of chronic disease Hyponatremia Elevated troponins, indeterminate History of coronary artery disease History of GERD Severe hypertension Obstructive sleep apnea Plan Medications have been reviewed and will be continued as ordered. We'll add nebulizer treatments in the form of DuoNeb and budesonide. Initiate and encourage incentive spirometer. Patient is on the fluid restriction diet, continue to monitor electrolytes. We will check urine for possible UTI. Will obtain and ultrasound of the effusions. Continue with supplemental oxygen, pulmonary hygiene, and supportive care. We will continue to monitor labs/ results and adjust treatment as necessary. I performed an examination of the patient and discussed their management with the nurse practitioner. I have reviewed the nurse practitioner's note and agree with the documented findings and plan of care.
[2017-02-07] MEDS: DOPamine DRIP 800 MG in DEXTROSE/WATER 1 500ML.BAG IV SCH (17:44)
[2017-02-07] MEDS: BUDESONIDE 0.5 MG/2 ML NEBU INHALATION SCH (20:14)
[2017-02-07] MEDS: IPRATROPIUM-ALBUTEROL 3 ML NEB INHALATION SCH (20:14)
[2017-02-07] MEDS: ATORVASTATIN 40 MG TAB PO SCH (21:12)
[2017-02-07] MEDS: DOCUSATE 100 MG CAP PO SCH (21:12)
[2017-02-07] MEDS: MELATONIN 3 MG TABLET PO SCH (21:12)
[2017-02-08] MEDS: PANTOPRAZOLE 40 MG TABLET PO SCH (05:54)
[2017-02-08] MEDS: FUROSEMIDE 10 MG/ML 4 ML VIAL IV SCH ×2 (05:54→12:47)
[2017-02-08 06:29] LABS: Anion Gap 12 mmol/L; Blood Urea Nitrogen 25 mg/dL (9-20); Calcium 8.5 mg/dL (8.4-10.2); Carbon Dioxide 26 mmol/L (22-30); Chloride 99 mmol/L (98-107); Glucose 102 mg/dL (74-99); Non-African American GFR(MDRD) 52 (>60 ml/min/1.73 sqM); Potassium 3.7 mmol/L (3.5-5.1); Sodium 137 mmol/L (137-145)
[2017-02-08 06:54] LABS: Anisocytosis Slight; Basophils # (A) 0.1 k/uL (0-0.2); Basophils % (A) 1 %; CH 26.9; Eosinophils # (A) 0.3 k/uL (0-0.7); Eosinophils % (A) 3 %; HCT 38.6 % (39.0-53.0); HDW 3.32; HGB 12.4 gm/dL (13.0-17.5); Hypochromasia Slight; Luc # (Auto) 0.34; Luc % (Auto) 4; Lymphocytes % (A) 10 %; MCH 27.1 pg (25.0-35.0); MCV 84.7 fL (80.0-100.0); Mean Platelet Volume 7.8; Monocytes # (A) 0.7 k/uL (0-1.0); Monocytes % (A) 7 %; Neutrophils # (A) 7.5 k/uL (1.3-7.7); Neutrophils % (A) 76 %; RBC 4.56 m/uL (4.30-5.90); RDW 16.9 % (11.5-15.5); WBC 9.8 k/uL (3.8-10.6); WBC (Perox) 10.74
--- NOTE | 2017-02-08 07:41 | PN ---
DATE OF SERVICE: 02/07/2017 This 86-year-old gentleman who was admitted with CHF exacerbation is being closely monitored. Patient on IV diuretics. Seen and evaluated the patient along with nurse practitioner. Please refer to the nurse practitioner notes and impression documented as a scribe for further information. Ultrasound of the chest showed only small pleural effusion.
[2017-02-08] MEDS: DOCUSATE 100 MG CAP PO SCH ×2 (08:49→21:53)
[2017-02-08] MEDS: ASPIRIN 81 MG CHEW PO SCH (08:49)
[2017-02-08] MEDS: CARBIDOPA-LEVODOPA 25-100 MG 1 EACH TAB PO SCH ×4 (08:50→21:52)
[2017-02-08] MEDS: OXYBUTYNIN XL 5 MG TAB.ER.24 PO SCH (08:50)
[2017-02-08] MEDS: IPRATROPIUM-ALBUTEROL 3 ML NEB INHALATION SCH ×3 (09:25→19:45)
[2017-02-08] MEDS: BUDESONIDE 0.5 MG/2 ML NEBU INHALATION SCH ×2 (09:25→19:44)
[2017-02-08] MEDS: levETIRAcetam 500 MG TAB PO SCH ×2 (12:46→21:53)
[2017-02-08] MEDS: FINASTERIDE 5 MG TAB PO SCH (12:46)
--- NOTE | 2017-02-08 12:50 | P.PN ---
Subjective This is an 86-year-old male who is being evaluated and examined today on the selective care unit. He came into the emergency room with difficulty in breathing had been progressing over the last 2 days. This patient is a very poor historian and from what confused at times. The patient has also had some weight gain and some leg swelling that is not normal for him. The patient was in the hospital previously with similar symptoms and it was associated with congestive heart failure. Chest x-ray results reviewed and suggest CHF exacerbation and small bilateral pleural effusions. It is unclear if the patient wears home oxygen or not. Upon examination the patient does have an occasional cough with clear sputum. He denies any fevers chest pain. He is breathing comfortably on room air. Ultrasound of the chest yesterday revealed a left pleural effusion pocket of 1.9 cm which is not large enough to undergo a thoracentesis. Objective - Vital Signs Vital signs: Vital Signs Temp 98.2 F 02/08/17 08:00 Pulse 60 02/08/17 08:00 Resp 18 02/08/17 08:00 BP 88/50 02/08/17 08:00 Pulse Ox 95 02/08/17 08:00 Intake & Output 02/07/17 02/08/17 02/08/17 18:59 06:59 18:59 Intake Total 897.169 150 480 Output Total 650 700 450 Balance 247.169 -550 30 Weight 87.1 kg 84.1 kg Intake: IV 75 DOPamine DRIP 800 mg In 75 Dextrose/Water 1 500ml. bag @ 2.5 MCG/KG/MIN 8.71 mls/hr IV .Q24H ANNAMARIA Rx#: [id number] Intake, IV Titration 217.169 Amount DOPamine DRIP 800 mg In 217.169 Dextrose/Water 1 500ml. bag @ 2.5 MCG/KG/MIN 8.71 mls/hr IV .Q24H ANNAMARIA Rx#: [id number] Oral 605 150 480 Output: Urine 650 700 450 Uretheral (Cabrales) 700 Other: Voiding Method Indwelling Catheter Indwelling Catheter Indwelling Catheter # Bowel Movements 1 0 - Exam GENERAL EXAM: Alert, active, comfortable in no apparent distress. HEAD: Normocephalic. EYES: Normal reaction of pupils, equal size. NOSE: Clear with pink turbinates. THROAT: No erythema or exudates. NECK: No masses, no JVD. CHEST: No chest wall deformity. LUNGS: Equal air entry with few scattered rhonchi and crackles at the bases. CVS: S1 and S2 normal with no audible mumurs, regular rhythm. ABDOMEN: No hepatosplenomegaly, normal bowel sounds, no guarding or rigidity. EXTREMITIES: 1-2+ edema noted, pedal pulses palpable. SKIN: No rashes, dry CENTRAL NERVOUS SYSTEM: No focal deficits, tone is normal in all 4 extremities. - Labs CBC & Chem 7: 02/08/17 05:40 02/08/17 05:40 Labs: Abnormal Lab Results - Last 24 Hours (Table) 02/08/17 02/08/17 Range/Units 05:40 05:40 Hgb 12.4 L (13.0-17.5) gm/dL Hct 38.6 L (39.0-53.0) % RDW 16.9 H (11.5-15.5) % BUN 25 H (9-20) mg/dL Creatinine 1.30 H (0.66-1.25) mg/dL Glucose 102 H (74-99) mg/dL Microbiology - Last 24 Hours (Table) 02/07/17 17:30 Urine Culture - Preliminary Urine,Catheterized Assessment and Plan Plan: Assessment Acute on chronic congestive heart failure, systolic dysfunction EF 40-45% Acute exacerbation of COPD Bilateral pleural effusions Pulmonary hypertension Moderate aortic stenosis Anemia, normocytic, anemia of chronic disease Hyponatremia Elevated troponins, indeterminate History of coronary artery disease History of GERD Severe hypertension Obstructive sleep apnea Plan Medications have been reviewed and will be continued as ordered. We'll add nebulizer treatments in the form of DuoNeb and budesonide. Initiate and encourage incentive spirometer. Patient is on the fluid restriction diet, continue to monitor electrolytes. Ultrasound of the chest for effusions was reviewed, no need for thoracentesis at this time. Continue with supplemental oxygen, pulmonary hygiene, and supportive care. We will continue to monitor labs/results and adjust treatment as necessary. I performed an examination of the patient and discussed their management with the nurse practitioner. I have reviewed the nurse practitioner's note and agree with the documented findings and plan of care.
[2017-02-08] MEDS: DIGOXIN 125 MCG TAB PO SCH (14:25)
--- NOTE | 2017-02-08 14:59 | P.PN ---
Subjective Date of service 02/08/2017. Progress note being dictated for Dr. Strickland. Interval history: This is an 86-year-old gentleman admitted with acute exacerbation of CHF, ischemic cardiomyopathy, moderate aortic stenosis acute renal failure and multiple other medical issues. Chest x-ray pending. Maintained on dopamine drip. Telemetry sinus rhythm. Denies chest pain, palpitations. Positive diet intake, denies nausea vomiting or diarrhea. Afebrile, WBC WNL. Ambulating in hallway with physical therapy, tolerating increase in exertion well. Objective - Vital Signs Vital signs: Vital Signs Temp 98.2 F 02/08/17 12:00 Pulse 80 02/08/17 13:58 Resp 18 02/08/17 12:00 BP 86/54 02/08/17 12:00 Pulse Ox 95 02/08/17 12:00 Intake & Output 02/07/17 02/08/17 02/08/17 18:59 06:59 18:59 Intake Total 897.169 150 530 Output Total 650 700 450 Balance 247.169 -550 80 Weight 87.1 kg 84.1 kg Intake: IV 75 DOPamine DRIP 800 mg In 75 Dextrose/Water 1 500ml. bag @ 2.5 MCG/KG/MIN 8.71 mls/hr IV .Q24H ANNAMARIA Rx#: [id number] Intake, IV Titration 217.169 Amount DOPamine DRIP 800 mg In 217.169 Dextrose/Water 1 500ml. bag @ 2.5 MCG/KG/MIN 8.71 mls/hr IV .Q24H ANNAMARIA Rx#: [id number] Oral 605 150 530 Output: Urine 650 700 450 Uretheral (Cabrales) 700 Other: Voiding Method Indwelling Catheter Indwelling Catheter Indwelling Catheter # Bowel Movements 1 0 - Exam PHYSICAL EXAM: VITAL SIGNS: As above GENERAL: [Sitting up in chair, no acute distress, eating lunch, brother at bedside HEENT: [Pupils equal conjunctiva normal. Mucosa moist] NECK: [Supple, positive JVD] RESPIRATORY EFFORT:[Mildly increased] LUNGS: [Bilateral bases diminished, bibasilar crackles, scattered rhonchi] CARDIOVASCULAR[regular S1 and S2, positive systolic murmurs rubs or gallops, positive edema] GI: [Abdomen soft, nontender, positive bowel sounds.] PSYCH: [Alert and oriented -3, mood and affect normal.] NEURO: No focal deficits, moves all 4 extremities, generalized weakness , sensation grossly intact - Labs CBC & Chem 7: 02/08/17 05:40 02/08/17 05:40 Labs: Abnormal Lab Results - Last 24 Hours (Table) 02/08/17 02/08/17 Range/Units 05:40 05:40 Hgb 12.4 L (13.0-17.5) gm/dL Hct 38.6 L (39.0-53.0) % RDW 16.9 H (11.5-15.5) % BUN 25 H (9-20) mg/dL Creatinine 1.30 H (0.66-1.25) mg/dL Glucose 102 H (74-99) mg/dL Microbiology - Last 24 Hours (Table) 02/07/17 17:30 Urine Culture - Preliminary Urine,Catheterized Assessment and Plan Plan: 1. Acute on chronic congestive heart failure exacerbation, systolic dysfunction , EF 40-45%. 2. [Ischemic cardiomyopathy, on dopamine drip]. 3. [Moderate aortic stenosis]. 4. [Anemia, normocytic, of chronic disease]. 5. [Hyponatremia]. 6. [Acute on chronic renal failure, stage III possible prerenal factors]. 7. [Troponin 0.069, indeterminate, rule out acute coronary syndrome]. 8. CAD, history of SD, CABG, stent 9. Gastroesophageal reflux disease 10. Hypertension 11. Hyperlipidemia 12. Parkinson's disease 13. Degenerative joint disease with gait dysfunction 14. Sleep apnea 15. History of peptic ulcer disease 16. Hypoalbuminemia 17. No Code, No CPR, No Vent 18. Acute COPD exacerbation, small bilateral pleural effusions Plan: Continue on current medication regime , nebulized bronchodilators, Pulmicort, monitoring and symptomatic treatment. Maintain fluid restrictions. PT/OT .Follow closely with cardiology and pulmonary. Prognosis guarded. Further recommendations to follow. The impression and plan of care has been dictated as directed. : I performed a H&P examination of this patient and discussed the same with the dictator. I agree with the dictator's note. Any additional findings/opinions/ etc. will be noted.
--- NOTE | 2017-02-08 15:02 | P.PN ---
Subjective Date of service 02/07/2017. Progress note being dictated for Dr. Strickland. Interval history: This is an 86-year-old gentleman admitted with acute exacerbation of CHF, ischemic cardiomyopathy, moderate aortic stenosis acute renal failure and multiple other medical issues. Evaluated by cardiology with recommendations noted. Maintained on dopamine drip. Telemetry sinus rhythm. Denies chest pain, palpitations. Good diet intake, consuming 75%. Denies nausea vomiting or diarrhea. Afebrile, WBC 12.2. Objective - Vital Signs Vital signs: Vital Signs Temp 97.6 F 02/07/17 15:37 Pulse 80 02/07/17 12:00 Resp 18 02/07/17 15:37 BP 151/78 02/07/17 15:37 Pulse Ox 96 02/07/17 15:37 Intake & Output 02/06/17 02/07/17 02/07/17 18:59 06:59 18:59 Intake Total 100 50 440 Output Total 950 3150 Balance -850 -3100 440 Weight 87.1 kg 87.1 kg Intake: IV 50 75 DOPamine DRIP 800 mg In 50 75 Dextrose/Water 1 500ml. bag @ 2.5 MCG/KG/MIN 8.71 mls/hr IV .Q24H ANNAMARIA Rx#: [id number] Oral 100 365 Output: Urine 950 3150 Other: Voiding Method Indwelling Catheter Indwelling Catheter Indwelling Catheter # Voids 1 1 - Exam PHYSICAL EXAM: VITAL SIGNS: As above GENERAL: [Sitting up at side of bed, tired appearing] HEENT: [Pupils equal conjunctiva normal. Mucosa moist] NECK: [Supple, positive JVD] RESPIRATORY EFFORT:[Mildly increased] LUNGS: [Bilateral bases diminished, bibasilar crackles, scattered rhonchi] CARDIOVASCULAR[regular S1 and S2, positive systolic murmurs rubs or gallops, positive edema] GI: [Abdomen soft, nontender, positive bowel sounds.] PSYCH: [Alert and oriented -3, mood and affect normal.] NEURO: No focal deficits, moves all 4 extremities, generalized weakness , sensation grossly intact - Labs CBC & Chem 7: 02/08/17 05:40 02/08/17 05:40 Labs: Abnormal Lab Results - Last 24 Hours (Table) 02/06/17 02/06/17 02/07/17 Range/Units 16:05 22:00 03:20 WBC (3.8-10.6) k/uL Hgb (13.0-17.5) gm/dL Hct (39.0-53.0) % RDW (11.5-15.5) % Neutrophils # (1.3-7.7) k/uL BUN (9-20) mg/dL Creatinine (0.66-1.25) mg/dL Glucose (74-99) mg/dL Troponin I 0.057 H* 0.045 H* (0.000-0.034) ng/mL Urine Blood Moderate H (Negative) Ur Leukocyte Esterase Moderate H (Negative) Urine RBC 113 H (0-5) /hpf Urine WBC 11 H (0-5) /hpf Urine Bacteria Occasional H (None) /hpf Urine Mucus Rare H (None) /hpf 02/07/17 02/07/17 Range/Units 05:48 05:48 WBC 12.2 H (3.8-10.6) k/uL Hgb 12.3 L (13.0-17.5) gm/dL Hct 37.3 L (39.0-53.0) % RDW 16.8 H (11.5-15.5) % Neutrophils # 10.0 H (1.3-7.7) k/uL BUN 24 H (9-20) mg/dL Creatinine 1.29 H (0.66-1.25) mg/dL Glucose 105 H (74-99) mg/dL Troponin I (0.000-0.034) ng/mL Urine Blood (Negative) Ur Leukocyte Esterase (Negative) Urine RBC (0-5) /hpf Urine WBC (0-5) /hpf Urine Bacteria (None) /hpf Urine Mucus (None) /hpf Assessment and Plan Plan: 1. Acute on chronic congestive heart failure exacerbation, systolic dysfunction , EF 40-45%. 2. [Ischemic cardiomyopathy, on dopamine drip]. 3. [Moderate aortic stenosis]. 4. [Anemia, normocytic, of chronic disease]. 5. [Hyponatremia]. 6. [Acute on chronic renal failure, stage III possible prerenal factors]. 7. [Troponin 0.069, indeterminate, rule out acute coronary syndrome]. 8. CAD, history of CA, CABG, stent 9. Gastroesophageal reflux disease 10. Hypertension 11. Hyperlipidemia 12. Parkinson's disease 13. Degenerative joint disease with gait dysfunction 14. Sleep apnea 15. History of peptic ulcer disease 16. Hypoalbuminemia 17. No Code, No CPR, No Vent Plan: Continue on current medication regime , nebulized bronchodilators, fluid restrictions, monitoring and symptomatic treatment. Ultrasound of bilateral chest reporting small left pleural effusion not marked for thoracentesis. PT/ OT. Possible subacute rehab at discharge. Further recommendations to follow. The impression and plan of care has been dictated as directed. : I performed a H&P examination of this patient and discussed the same with the dictator. I agree with the dictator's note. Any additional findings/opinions/ etc. will be noted.
--- NOTE | 2017-02-08 15:17 | XR ---
EXAMINATION TYPE: XR chest 1V portable DATE OF EXAM: 02/08/2017 2:58 PM COMPARISON: Prior chest x-ray January HISTORY: Pneumonia, abnormal chest x-ray TECHNIQUE: Single frontal view of the chest is obtained. FINDINGS: The heart is enlarged. Patient is post median sternotomy. There are overlying cardiac lead s. Patchy basilar density persists. No evident pneumothorax or sizable pleural effusion. Suspect impr ovement in the interstitium and central vascularity. There are postop changes in the right shoulder. IMPRESSION: Probable basilar atelectasis. Improvement in patient's volume status.
[2017-02-08] MEDS: HYDROcodone/APAP 5-325MG 1 EACH TAB PO PRN (15:56)
[2017-02-08] MEDS: FUROSEMIDE 80 MG TAB PO SCH (15:58)
--- NOTE | 2017-02-08 16:01 | P.PN ---
Progress Note - Text This is Dr. Bobby dictating a progress note on Tono Lester for February 07. This patient was admitted with increasing shortness of breath. Patient chest x- ray showed evidence of CHF. Patient was hypotensive. She was started on IV dopamine and also IV Lasix. Cardiac medications were held because of hypotension. Patient has diuresed very well. Patient is feeling better. Will cut back the dose of the dopamine to 1.25 and continue with IV Lasix. We'll resume the rest of the medication as tolerated. We'll also may start him on Lanoxin. Physical examination reveals elderly gentleman who is alert and doesn't appear to be in acute distress. Blood pressure is running about 80-90 systolic. Heart rate in the 60s. Lungs show some scattered rales. Heart is regular. Systolic murmur heard as before. Lab values and chest x-ray were reviewed. Patient will continue on low-dose of dopamine and rest of the medication. Further comminution depend upon clinical course.
--- NOTE | 2017-02-08 16:05 | P.PN ---
Subjective Principal diagnosis: Congestive heart failure, aortic stenosis, coronary artery disease This 86-year-old gentleman is admitted with increasing shortness of breath. Patient was in congestive heart failure. Patient is treated with IV dopamine and IV Lasix. Patient diuresed well. He is feeling better. His chest x-ray showed improvement. We'll going to wean off his dopamine. We'll start him on by mouth Lanoxin. His creatinine is 1.3. Patient is also seen by Dr. Seals. He is getting some inhalers. Overall patient clinical status is improved. We'll resume his cardiac medications once blood pressure is stable. Objective - Vital Signs Vital signs: Vital Signs Temp 98.2 F 02/08/17 12:00 Pulse 80 02/08/17 13:58 Resp 18 02/08/17 12:00 BP 86/54 02/08/17 12:00 Pulse Ox 95 02/08/17 12:00 Intake & Output 02/07/17 02/08/17 02/08/17 18:59 06:59 18:59 Intake Total 897.169 150 530 Output Total 650 700 450 Balance 247.169 -550 80 Weight 87.1 kg 84.1 kg Intake: IV 75 DOPamine DRIP 800 mg In 75 Dextrose/Water 1 500ml. bag @ 2.5 MCG/KG/MIN 8.71 mls/hr IV .Q24H ANNAMARIA Rx#: [id number] Intake, IV Titration 217.169 Amount DOPamine DRIP 800 mg In 217.169 Dextrose/Water 1 500ml. bag @ 2.5 MCG/KG/MIN 8.71 mls/hr IV .Q24H ANNAMARIA Rx#: [id number] Oral 605 150 530 Output: Urine 650 700 450 Uretheral (Cabrales) 700 Other: Voiding Method Indwelling Catheter Indwelling Catheter Indwelling Catheter # Bowel Movements 1 0 - Exam GENERAL EXAM: Patient is alert and oriented and doesn't appear to be in any acute distress HEENT: Normocephalic. Normal reaction of pupils, equal size, normal range of extraocular motion. No erythema or exudates in the throat. NECK: No masses, no nuchal rigidity. CHEST: No chest wall deformity. LUNGS: Scattered rales with diminished breath sounds HEART: Systolic murmur in the aortic area ABDOMEN: No hepatosplenomegaly, normal bowel sounds, no guarding or rigidity. SKIN: No rashes CENTRAL NERVOUS SYSTEM: No focal deficits. EXTREMITIES: No cyanosis, clubbing or edema. - Labs CBC & Chem 7: 02/08/17 05:40 02/08/17 05:40 Labs: Abnormal Lab Results - Last 24 Hours (Table) 02/08/17 02/08/17 Range/Units 05:40 05:40 Hgb 12.4 L (13.0-17.5) gm/dL Hct 38.6 L (39.0-53.0) % RDW 16.9 H (11.5-15.5) % BUN 25 H (9-20) mg/dL Creatinine 1.30 H (0.66-1.25) mg/dL Glucose 102 H (74-99) mg/dL Microbiology - Last 24 Hours (Table) 02/07/17 17:30 Urine Culture - Preliminary Urine,Catheterized Assessment and Plan (1) Ischemic heart disease Status: Acute (2) Congestive heart failure Status: Acute (3) Acute exacerbation of chronic obstructive airways disease Status: Acute (4) Aortic stenosis Status: Acute (5) Bradycardia Status: Acute Plan: Patient is feeling better. Chest x-ray shows improvement. His BUN/creatinine remained stable. We'll going to be an off the dopamine. Patient will be started on Lanoxin. We'll resume his Coreg and blood pressure is stable. Prognosis is guarded.
[2017-02-08] MEDS: ATORVASTATIN 40 MG TAB PO SCH (21:53)
[2017-02-08] MEDS: MELATONIN 3 MG TABLET PO SCH (21:53)
--- NOTE | 2017-02-08 22:30 | PN ---
DATE OF SERVICE: 02/08/2017 This 86-year-old gentleman who was admitted with CHF, acute exacerbation, also had ischemic cardiomyopathy. Patient has been started on dopamine drip at this time. Seen and evaluated the patient along with the nurse practitioner. Please refer to the nurse practitioner's notes and impressions documented as a scribe for further information. Lasix has been converted to p.o. Further recommendations to follow.
[2017-02-09] MEDS: PANTOPRAZOLE 40 MG TABLET PO SCH (06:50)
[2017-02-09 07:05] LABS: Anion Gap 9 mmol/L; Blood Urea Nitrogen 27 mg/dL (9-20); Calcium 8.2 mg/dL (8.4-10.2); Carbon Dioxide 29 mmol/L (22-30); Chloride 100 mmol/L (98-107); Glucose 104 mg/dL (74-99); Non-African American GFR(MDRD) 55 (>60 ml/min/1.73 sqM); Potassium 3.7 mmol/L (3.5-5.1); Sodium 138 mmol/L (137-145)
[2017-02-09 07:24] LABS: Anisocytosis Slight; Basophils # (A) 0.1 k/uL (0-0.2); Basophils % (A) 1 %; CH 27.1; CHCM 31.9; Eosinophils # (A) 0.3 k/uL (0-0.7); Eosinophils % (A) 4 %; HCT 40.1 % (39.0-53.0); HDW 3.37; HGB 12.8 gm/dL (13.0-17.5); Hypochromasia Slight; Luc # (Auto) 0.31; Luc % (Auto) 3; Lymphocytes # (A) 1.1 k/uL (1.0-4.8); Lymphocytes % (A) 11 %; MCH 27.2 pg (25.0-35.0); MCHC 31.8 g/dL (31.0-37.0); MCV 85.6 fL (80.0-100.0); Monocytes # (A) 0.7 k/uL (0-1.0); Monocytes % (A) 7 %; Neutrophils % (A) 75 %; RBC 4.68 m/uL (4.30-5.90); RDW 16.7 % (11.5-15.5); WBC 9.5 k/uL (3.8-10.6); WBC (Perox) 9.56
[2017-02-09] MEDS: FUROSEMIDE 80 MG TAB PO SCH ×2 (08:58→16:39)
[2017-02-09] MEDS: DIGOXIN 125 MCG TAB PO SCH (08:58)
[2017-02-09] MEDS: OXYBUTYNIN XL 5 MG TAB.ER.24 PO SCH (08:58)
[2017-02-09] MEDS: DOCUSATE 100 MG CAP PO SCH ×2 (08:58→21:04)
[2017-02-09] MEDS: ASPIRIN 81 MG CHEW PO SCH (08:58)
[2017-02-09] MEDS: CARBIDOPA-LEVODOPA 25-100 MG 1 EACH TAB PO SCH ×4 (08:58→21:03)
[2017-02-09] MEDS: HYDROcodone/APAP 5-325MG 1 EACH TAB PO PRN (09:03)
[2017-02-09 11:31] VITALS: RESP 20
[2017-02-09] MEDS: IPRATROPIUM-ALBUTEROL 3 ML NEB INHALATION SCH ×3 (11:49→22:14)
[2017-02-09] MEDS: BUDESONIDE 0.5 MG/2 ML NEBU INHALATION SCH ×2 (11:49→22:14)
[2017-02-09] MEDS: FINASTERIDE 5 MG TAB PO SCH (12:46)
[2017-02-09] MEDS: levETIRAcetam 500 MG TAB PO SCH ×2 (12:46→21:04)
--- NOTE | 2017-02-09 13:00 | PN ---
DATE OF SERVICE: 02/09/2017 Mr. Tono Lester is seen, evaluated and examined. He is an 86-year-old male with problems associated with shortness of breath for the last 2 to 3 days as well as increased swelling and weight gain. Patient is being treated for congestive heart failure exacerbation. Patient does have bilateral pleural effusion as well. He is more awake and alert. He is on 2 L oxygen, he is breathing relatively more comfortably. His blood pressure is slowly improving, though. Overall, is a poor historian. Most of the data has been obtained from the chart. Chest x-ray performed 02/08/2017 has been reviewed. The interstitial edema and effusions has been improved as well. His last set of vitals include blood pressure is 105/61, respiratory rate 18, pulse 88, temperature 98, saturation on 96% on 2 L oxygen. HEENT: Unremarkable. NECK: Supple. LUNGS: Good air entry bilaterally. A few crackles at the bases. HEART: Regular rate and rhythm. ABDOMEN: Soft. No rebound or rigidity. EXTREMITIES: +1 peripheral pulses. NEUROLOGICAL EXAMINATION: Otherwise, awake and alert. IMPRESSION: 1. Acute hypoxic respiratory failure with significant hypertension, related to acute on chronic systolic heart failure, ejection fraction of 40%. 2. Chronic obstructive pulmonary disease with acute exacerbation. 3. Bilateral pleural effusion. 4. Other issues include hyponatremia, history of coronary artery disease, gastroesophageal reflux disease, obstructive sleep apnea. Plan is to continue breathing treatments. Continue gentle diuresis. Monitor renal functions closely. Optimize medical therapy which is being performed. Will follow. Urine culture; however, has been negative. Will observe off of antibiotics.
--- NOTE | 2017-02-09 15:31 | P.PN ---
Subjective Principal diagnosis: CHF, Aortic stenosis, CAD This is a pleasant 86-year-old gentleman who was admitted with increasing shortness of breath. Found to be in congestive heart failure. The patient was treated with IV dopamine and IV Lasix. He has diuresed well. He is feeling quite a bit better and his chest x-ray shows improvement. IV dopamine was stopped yesterday and the patient was started on oral Lanoxin. On examination, patient is sitting up in the chair. Anticipating removal of Cabrales catheter. He is breathing well. Blood pressure has stabilized running in the low 100 systolic. Objective - Vital Signs Vital signs: Vital Signs Temp 98.3 F 02/09/17 11:30 Pulse 88 02/09/17 12:06 Resp 20 02/09/17 11:30 BP 100/68 02/09/17 11:30 Pulse Ox 94 L 02/09/17 11:30 Intake & Output 02/08/17 02/09/17 02/09/17 18:59 06:59 18:59 Intake Total 530 440 Output Total 850 475 200 Balance -320 -475 240 Weight 83.9 kg 83.9 kg Intake: Oral 530 440 Output: Urine 850 475 200 Other: Voiding Method Indwelling Catheter Indwelling Catheter Indwelling Catheter # Voids 1 # Bowel Movements 0 0 - Exam PHYSICAL EXAMINATION: HEENT: Head is atraumatic, normocephalic. Pupils equal, round. Neck is supple. There is no elevated jugular venous pressure. HEART EXAMINATION: Heart sounds regular, S1 and S2 with a systolic murmur. CHEST EXAMINATION: Lungs feel diminished air entry bilaterally with faint crackles at bilateral bases. No chest wall tenderness is noted on palpation or with deep breathing. ABDOMEN: Soft, nontender. Bowel sounds are heard. No organomegaly noted. EXTREMITIES: 2+ peripheral pulses with no evidence of peripheral edema and no calf tenderness noted. NEUROLOGIC patient is awake, alert and oriented x3. . - Labs CBC & Chem 7: 02/09/17 06:24 02/09/17 06:24 Labs: Abnormal Lab Results - Last 24 Hours (Table) 02/09/17 02/09/17 Range/Units 06:24 06:24 Hgb 12.8 L (13.0-17.5) gm/dL RDW 16.7 H (11.5-15.5) % BUN 27 H (9-20) mg/dL Glucose 104 H (74-99) mg/dL Calcium 8.2 L (8.4-10.2) mg/dL Microbiology - Last 24 Hours (Table) 02/07/17 17:30 Urine Culture - Final Urine,Catheterized Assessment and Plan Plan: Assessment and plan #1 ischemic heart disease #2 congestive heart failure #3 acute exacerbation of COPD #4 aortic stenosis #5 bradycardia #6 hypotension From cardiac standpoint, we will change digoxin to 125 micrograms every other day on Saturday. We anticipate the patient will be discharged home in the next 24 hours. We will also start the patient on a very small dose of carvedilol which will be held if systolic blood pressure is less than 100 mmHg. Further recommendations to follow. PRESS LEADER note has been reviewed, I agree with a documented findings and plan of care. Patient was seen and examined.
[2017-02-09] MEDS: CARVEDILOL 1.563 MG TAB PO SCH (16:39)
[2017-02-09] MEDS: ATORVASTATIN 40 MG TAB PO SCH (21:03)
[2017-02-09] MEDS: MELATONIN 3 MG TABLET PO SCH (21:03)
[2017-02-10] MEDS: PANTOPRAZOLE 40 MG TABLET PO SCH (06:20)
[2017-02-10] MEDS: CARVEDILOL 1.563 MG TAB PO SCH (06:53)
[2017-02-10 07:17] LABS: Anion Gap 11 mmol/L; Blood Urea Nitrogen 28 mg/dL (9-20); Calcium 8.5 mg/dL (8.4-10.2); Carbon Dioxide 27 mmol/L (22-30); Chloride 100 mmol/L (98-107); Glucose 98 mg/dL (74-99); Non-African American GFR(MDRD) 55 (>60 ml/min/1.73 sqM); Potassium 4.1 mmol/L (3.5-5.1); Sodium 138 mmol/L (137-145)
[2017-02-10] MEDS: FUROSEMIDE 80 MG TAB PO SCH (07:28)
[2017-02-10] MEDS: CARBIDOPA-LEVODOPA 25-100 MG 1 EACH TAB PO SCH ×2 (07:28→11:06)
[2017-02-10] MEDS: ATORVASTATIN 40 MG TAB PO SCH (07:28)
[2017-02-10] MEDS: ASPIRIN 81 MG CHEW PO SCH (07:28)
[2017-02-10] MEDS: DOCUSATE 100 MG CAP PO SCH (07:28)
[2017-02-10] MEDS: OXYBUTYNIN XL 5 MG TAB.ER.24 PO SCH (07:29)
--- NOTE | 2017-02-10 10:19 | PN ---
DATE OF SERVICE: 02/09/2017 This 86-year-old gentleman who was admitted with CHF acute exacerbation, was on Dopamine drip. The patient improved significantly. No chest pain or palpitations. No fever. On exam, alert, oriented x3. Pulse 86, blood pressure 106/64, respirations 20, temperature 97.2, pulse ox 94% on room air. HEENT: Conjunctivae normal. NECK: No JVD. CARDIOVASCULAR: S1 and S2 muffled. LUNGS: Breath sounds diminished in the bases. Bilateral scattered rhonchi and crackles. ABDOMEN: Soft, nontender. EXTREMITIES: Legs, no edema. NERVOUS SYSTEM: No focal deficits. LABS: WBC 9.5, hemoglobin 12.8. ASSESSMENT: 1. Congestive heart failure, acute exacerbation, with acute on chronic systolic dysfunction, ejection fraction 40% to 45%. 2. Ischemic cardiomyopathy, status post dopamine drip. 3. Moderate ataxia. 4. Anemia, normocytic anemia of chronic disease. 5. Hyponatremia. 6. Acute on chronic renal failure stage III, possibly prerenal factors. 7. Troponin 0.06, indeterminate. No evidence of myocardial infarction. 8. History of coronary artery disease. 9. History of myocardial infarction, coronary artery bypass graft with stent. 10. Gastroesophageal reflux disease. 11. Hypertension, essential. 12. Hyperlipidemia. 13. History of Parkinson disease. 14. History of degenerative joint disease. 15. Gait dysfunction. 16. Sleep apnea. 17. History of peptic ulcer disease. 18. Hypoalbuminemia. 19. NO CODE, NO CPR, NO VENT. RECOMMENDATIONS: Recommend continue current medications, continue with monitoring and symptomatic treatment. Otherwise at this time I would recommend diuretics, increase ambulation. Guarded prognosis. Further recommendations to follow.
[2017-02-10 10:26] LABS: Anisocytosis Slight; Basophils % (A) 0 %; CH 27.2; Eosinophils # (A) 0.3 k/uL (0-0.7); Eosinophils % (A) 3 %; HCT 40.3 % (39.0-53.0); HDW 3.43; HGB 12.8 gm/dL (13.0-17.5); Hypochromasia Slight; Luc # (Auto) 0.36; Luc % (Auto) 4; Lymphocytes # (A) 1.1 k/uL (1.0-4.8); Lymphocytes % (A) 11 %; MCH 27.2 pg (25.0-35.0); MCHC 31.9 g/dL (31.0-37.0); MCV 85.4 fL (80.0-100.0); Mean Platelet Volume 8.4; Monocytes % (A) 10 %; Neutrophils # (A) 7.3 k/uL (1.3-7.7); Neutrophils % (A) 72 %; Poikilocytosis Slight; RBC 4.72 m/uL (4.30-5.90); RDW 16.5 % (11.5-15.5); WBC 10.1 k/uL (3.8-10.6); WBC (Perox) 10.03
[2017-02-10] MEDS: levETIRAcetam 500 MG TAB PO SCH (11:06)
[2017-02-10] MEDS: FINASTERIDE 5 MG TAB PO SCH (11:07)
[2017-02-10 11:17] VITALS: BP 112/54; PULSE 88; TEMP 97.9
--- NOTE | 2017-02-10 16:27 | PN ---
DATE OF SERVICE: 02/10/2017 Mr. Tono Lester is an 86-year-old male, seen, evaluated, examined. The patient is being monitored and treated for acute exacerbation of congestive heart failure. Clinically patient is slightly better in terms of breathing, but still gets short of breath on minimal activity and exertion. His last set of vitals include blood pressure is 112/54, respiratory rate 20, pulse 88, temperature 98, saturation 96%. HEENT: Unremarkable. NECK: Supple. LUNGS: Good air entry bilaterally. Decreased air entry at the bases. HEART: Regular rate and rhythm. ABDOMEN: Soft. No rebound or rigidity. EXTREMITIES: +1 peripheral pulses. NEUROLOGICAL EXAMINATION: Otherwise, awake and alert. Labs reviewed. White cell count 10,100, hemoglobin 12, hematocrit 40, platelet count 257,000. Sodium is 132, potassium 4.1. BUN and creatinine 20 and 1.25. Culture results and reports are reviewed as well. Urine culture no growth so far. IMPRESSION: 1. Cardiomyopathy acute on chronic systolic heart failure. 2. Acute exacerbation of chronic obstructive pulmonary disease. 3. Aortic stenosis. 4. Hypertension and bradycardia. Overall clinically stable and continue to improve. Plan is to continue supportive care. Continue breathing treatments, increase activity as tolerated. Will monitor patient off of steroids and breathing treatments.
--- NOTE | 2017-02-10 20:30 | P.PN ---
Subjective Principal diagnosis: Congestive heart failure, aortic stenosis, coronary artery disease This patient is admitted to the hospital with increasing shortness of breath and evidence of CHF. Patient is known to have severe aortic stenosis and previous ischemic heart disease. Patient was initially treated with dopamine and Lasix. Patient responded well with good diuresis. Currently is on oral Lasix and also Coreg. Patient is tolerating the medication well. He is up and around. Patient could be discharged home on current medical therapy. Follow- up in the office in one week Objective - Vital Signs Vital signs: Vital Signs Temp 97.9 F 02/10/17 11:15 Pulse 88 02/10/17 11:57 Resp 20 02/10/17 11:57 BP 112/54 02/10/17 11:15 Pulse Ox 96 02/10/17 11:15 Intake & Output 02/10/17 02/10/17 02/11/17 06:59 18:59 06:59 Intake Total 850 180 Output Total 550 300 Balance 300 -120 Weight 84.5 kg 84.5 kg Intake: Oral 850 180 Output: Urine 550 300 Other: Voiding Method Toilet Toilet Urinal Urinal # Voids 2 # Bowel Movements 0 - Exam GENERAL EXAM: Patient is alert and oriented and doesn't appear to be in any acute distress HEENT: Normocephalic. Normal reaction of pupils, equal size, normal range of extraocular motion. No erythema or exudates in the throat. NECK: No masses, no nuchal rigidity. CHEST: No chest wall deformity. LUNGS: Scattered rales with diminished breath sounds HEART: Systolic murmur in the aortic area ABDOMEN: No hepatosplenomegaly, normal bowel sounds, no guarding or rigidity. SKIN: No rashes CENTRAL NERVOUS SYSTEM: No focal deficits. EXTREMITIES: No cyanosis, clubbing or edema. - Labs CBC & Chem 7: 02/10/17 06:12 02/10/17 06:12 Labs: Abnormal Lab Results - Last 24 Hours (Table) 02/10/17 02/10/17 Range/Units 06:12 06:12 Hgb 12.8 L (13.0-17.5) gm/dL RDW 16.5 H (11.5-15.5) % BUN 28 H (9-20) mg/dL Assessment and Plan (1) Ischemic heart disease Status: Acute (2) Congestive heart failure Status: Acute (3) Acute exacerbation of chronic obstructive airways disease Status: Acute (4) Aortic stenosis Status: Acute (5) Bradycardia Status: Acute Plan: Patient seemed to be doing very well. Patient is ambulating in the hallways without any difficulty. Patient could be discharged home. Patient to continue Coreg, Lanoxin and diuretics. Follow-up in the office in one week
[2017-02-11] MEDS ORDERED: DIGOXIN 125 MCG TAB PO SCH (09:00)
--- NOTE | 2017-02-11 13:22 | DS ---
DATE OF ADMISSION: 02/06/2017 DATE OF DISCHARGE: 02/10/2017 FINAL DIAGNOSES: 1. Congestive heart failure exacerbation with chronic systolic dysfunction, ejection fraction 40% to 45%. 2. Ischemic cardiomyopathy status post dopamine drip. 3. Anemia, normocytic anemia of chronic disease. 4. Hyponatremia. 5. Acute on chronic renal failure stage III with possibly prerenal factors. 6. Troponin 0.6, indeterminate. No evidence of myocardial infarction. 7. History of coronary artery disease. 8. History of myocardial infarction. 9. Coronary artery disease, coronary artery bypass grafting with stent. 10. Gastroesophageal reflux disease. 11. Hypertension, essential. 12. Hyperlipidemia. 13. History of Parkinson's disease. 14. History of degenerative joint disease. 15. Gait dysfunction. 16. Sleep apnea. 17. History of peptic ulcer disease. 18. Hypoalbuminemia. 19. NO CODE, NO CPR, NO VENT. DISCHARGE DISPOSITION: The patient will be discharged in stable condition with guarded prognosis. Total time taken 35 minutes. HISTORY OF PRESENT ILLNESS: This 86-year-old gentleman with a past history of multiple medical problems was admitted with CHF, acute exacerbation, treated with diuretics. The patient has been followed by Dr. Valdez in the outpatient setting. Patient was seen in conjunction with pulmonary and cardiology care was coordinated. On exam, vitals are stable. CARDIOVASCULAR: S1, S2 muffled. RESPIRATORY: A few scattered rhonchi. No crackles. ABDOMEN: Soft. Nervous system: No focal deficits. DISCHARGE ADVICE AND MEDICATIONS: 1. Diet is cardiac. 2. Activity limited until follow-up. 3. Follow-up with Dr. Valdez 2 to 3 days. 4. Follow up with pulmonary and cardiology as recommended. 5. Medications are aspirin 81 mg p.o. daily. 6. Lipitor 40 mg q.h.s. 7. Pulmicort 0.5 mg b.i.d. 8. Carbidopa levodopa ( ) one p.o. q.i.d. 9. Coreg 1.563 p.o. b.i.d. 10. Duricef 500 mg p.o. b.i.d. for 3 days. 11. Lanoxin 120 mcg q.48 hours. 12. Finasteride 5 mg p.o. daily. 13. Lasix 80 mg p.o. b.i.d. dose to be evaluated in the outpatient setting. 14. Albuterol Atrovent q.i.d. and p.r.n. 15. Prilosec 40 mg p.o. daily. 16. Klor-Con 10 meq p.o. daily. 17. Aldactone 25 mg p.o. daily. 18. Sancutraxr 60 mg p.o. daily. 19. Keppra 500 mg p.o. b.i.d. 20. Requip 2 mg in the morning. 21. Requip 3 mg at bedtime. Once again, the patient will be discharged in stable condition with guarded prognosis.
== END 2017-02-10 13:50 | disposition home or self-care (01) | DRG 291 ==
LOC: EC 09:44 → 6SEL 11:42
PROVIDERS: ADMIT Hospitalist; ATTEND Hospitalist
DX: I13.0 Hypertensive heart and chronic kidney disease with heart failure and stage 1 through stage 4 chronic kidney disease, or unspecified chronic kidney disease (principal); I50.23 Acute on chronic systolic (congestive) heart failure; N17.9 Acute kidney failure, unspecified; G20 Parkinson's disease; I27.2 Other secondary pulmonary hypertension; E88.09 Other disorders of plasma-protein metabolism, not elsewhere classified; I71.2 Thoracic aortic aneurysm, without rupture; J44.1 Chronic obstructive pulmonary disease with (acute) exacerbation; I25.5 Ischemic cardiomyopathy; N18.3 Chronic kidney disease, stage 3 (moderate); D63.8 Anemia in other chronic diseases classified elsewhere; I48.91 Unspecified atrial fibrillation; I35.0 Nonrheumatic aortic (valve) stenosis; Z66 Do not resuscitate; I25.10 Atherosclerotic heart disease of native coronary artery without angina pectoris; I25.2 Old myocardial infarction; K21.9 Gastro-esophageal reflux disease without esophagitis; E78.5 Hyperlipidemia, unspecified; M19.91 Primary osteoarthritis, unspecified site; R26.9 Unspecified abnormalities of gait and mobility; G47.33 Obstructive sleep apnea (adult) (pediatric); N40.0 Benign prostatic hyperplasia without lower urinary tract symptoms; R29.6 Repeated falls; R27.0 Ataxia, unspecified; K44.9 Diaphragmatic hernia without obstruction or gangrene; Z86.010 Personal history of colon polyps; Z96.653 Presence of artificial knee joint, bilateral; Z95.1 Presence of aortocoronary bypass graft; Z95.5 Presence of coronary angioplasty implant and graft; Z87.11 Personal history of peptic ulcer disease; Z82.49 Family history of ischemic heart disease and other diseases of the circulatory system; Z79.82 Long term (current) use of aspirin; Z79.899 Other long term (current) drug therapy
CPT/HCPCS: 36415; 51798; 71010; 71020; 76604; 80048; 80053; 81001; 82550; 82553; 83735; 83880; 84484; 85025; 85610; 85730; 87086; 93005; 94640; 94760; 96365; 96375; 99285

== ENCOUNTER → 2017-02-11 | Outpatient (CLI) | payer MEDICARE, BC ==
--- NOTE | 2017-02-11 13:22 | FL ---
MODIFIED SWALLOW / DEGLUTITION STUDY DATE OF EXAM: 02/11/2017 11:56 AM CLINICAL HISTORY: 86 year-old male history of Parkinson's disease disease, difficulty swallowing. Total fluoroscopy time: 3 minutes 14 seconds. TECHNIQUE: Deglutition study is performed utilizing thin liquid barium, honey and nectar thick liqui d barium, barium thick applesauce, and barium coated cracker. COMPARISON: None. FINDINGS: The oral and pharyngeal phases show satisfactory initiation and propagation with all modalities teste d. There is mild silent aspiration with thin liquid consistency. Moderate residuals are noted within the vallecular space, piriform sinuses, and along the posterior pharyngeal wall. No additional penet ration or aspiration seen. IMPRESSION: 1. Mild silent aspiration with thin liquids. 2. Moderate residuals which place the patient at risk for subsequent aspiration. 3. Please refer to speech therapist notes for further details if necessary.
== END | disposition home or self-care (01) ==
LOC: RADFLWHC 10:50
PROVIDERS: ATTEND Psychiatry & Neurology Neurology
DX: G20 Parkinson's disease (principal); R13.10 Dysphagia, unspecified; T17.918A Gastric contents in respiratory tract, part unspecified causing other injury, initial encounter
CPT/HCPCS: 74230

== ENCOUNTER → 2017-02-19 | Outpatient (CLI) | payer MEDICARE, BC ==
--- NOTE | 2017-02-19 21:59 | US ---
EXAMINATION TYPE: US carotid duplex BILAT DATE OF EXAM: 02/19/2017 2:33 PM COMPARISON: CT brain 2016 CLINICAL HISTORY: 86-year-old male R29.6 Recurrent Falls. TECHNIQUE: Carotid duplex ultrasound examination. Indirect Doppler criteria was utilized. FINDINGS: Moderate atherosclerotic change at the left greater than right bifurcations. EXAM MEASUREMENTS: RIGHT: Peak Systolic Velocity (PSV) cm/sec ----- Right CCA: 48.1 ----- Right ICA: 70.6 ----- Right ECA: 113.5 ICA/CCA ratio: 1.5 RIGHT: End Diastole cm/sec ----- Right CCA: 11.1 ----- Right ICA: 22.5 ----- Right ECA: 0.0 LEFT: Peak Systolic Velocity (PSV) cm/sec ----- Left CCA: 62.5 ----- Left ICA: 71.4 ----- Left ECA: 105.7 ICA/CCA ratio: 1.1 LEFT: End Diastole cm/sec ----- Left CCA: 15.9 ----- Left ICA: 26.0 ----- Left ECA: 0.0 VERTEBRALS (direction of flow): Right Vertebral: Antegrade Left Vertebral: Antegrade IMPRESSION: Moderate atherosclerotic change at the left greater than right bifurcations. No hemodynamically signi ficant stenosis appreciated in either internal carotid artery. Criteria for Assigning % of Stenosis / Diameter reduction (Estimation based on the indirect measurements of the internal carotid artery velocities (ICA PSV). 1. Normal (no stenosis)=ICA PSV < 125 cm/s: ratio < 2.0: ICA EDV<40 cm/s. 2. Less than 50% stenosis=ICA PSV < 125 cm/s: ratio < 2.0: ICA EDV<40 cm/s. 3. 50 to 69% stenosis=ICA PSV of 125 to 230 cm/s: ration 2.0 ? 4.0: ICA EDV 40-100 cm/s. 4. Greater than 70% stenosis to near occlusion= ICA PSV > 230 cm/s: ratio > 4.0: ICA EDV > 100 cm/s. 5. Near occlusion= ICA PSV velocities may be low or undetectable: variable ratio and ICA EDV. 6. Total occlusion=unable to detect flow.
== END | disposition home or self-care (01) ==
LOC: RADUSWWP 14:07
PROVIDERS: ATTEND Psychiatry & Neurology Neurology
DX: I65.23 Occlusion and stenosis of bilateral carotid arteries (principal)
CPT/HCPCS: 93880

== ENCOUNTER → 2017-04-05 | Outpatient (CLI) | payer MEDICARE, BC ==
[2017-04-05 14:55] LABS: ALT 18 U/L (21-72); AST 42 U/L (17-59); Alkaline Phosphatase 140 U/L (38-126); Anion Gap 11 mmol/L; Blood Urea Nitrogen 18 mg/dL (9-20); Carbon Dioxide 24 mmol/L (22-30); Chloride 104 mmol/L (98-107); Digoxin 0.8 ng/mL; Glucose 115 mg/dL (74-99); Non-African American GFR(MDRD) 52 (>60 ml/min/1.73 sqM); Potassium 4.5 mmol/L (3.5-5.1); Sodium 139 mmol/L (137-145); Total Bilirubin 0.6 mg/dL (0.2-1.3); Total Protein 6.6 g/dL (6.3-8.2)
== END | disposition home or self-care (01) ==
LOC: LABWHC1 14:28
PROVIDERS: ATTEND Internal Medicine Cardiovascular Disease
DX: I50.9 Heart failure, unspecified (principal)
CPT/HCPCS: 36415; 80053; 80162

== ENCOUNTER 2018-07-03 17:33 | Emergency (ER) | payer MEDICARE, BC ==
--- NOTE | 2018-07-03 18:31 | ED ---
General Adult HPI - General Chief complaint: Wound/Laceration Stated complaint: HEAD LACERATION Time Seen by Provider: 07/03/18 18:02 Source: patient Mode of arrival: wheelchair Limitations: no limitations - History of Present Illness Initial comments: 87-year-old male patient presents to the emergency department today for evaluation after experiencing a fall. Patient was moving an air compressor when he lost his balance fell backwards striking his head on the lawnmower. Patient states that the air compressor fell backwards on top of his right foot as well. Patient denies any loss of consciousness. States he was able to ablate after the fall. He denies any headache, back pain, or hip pain. Patient states his neck is "stiff". Patient and family are unsure when his last tetanus vaccine was given. Patient did take Tylenol prior to arrival. Patient denies any chest pain, shortness of breath, dizziness, weakness, abdominal pain , nausea, vomiting, or difficulties with bowel movements or urination. - Related Data Home Medications Medication Instructions Recorded Confirmed Aspirin 81 mg PO DAILY 03/19/14 07/03/18 Carbidopa-Levodopa 25-100 mg 1 tab PO QID 03/19/14 07/03/18 [Sinemet 25-100 mg] Finasteride 5 mg PO DAILY@1200 03/19/14 07/03/18 rOPINIRole HCL [Requip] 2 mg PO QAM 03/19/14 07/03/18 Spironolactone [Aldactone] 25 mg PO DAILY@1200 12/28/16 07/03/18 levETIRAcetam [Keppra] 500 mg PO BID@1200,199912/28/16 07/03/18 rOPINIRole HCL [Requip] 3 mg PO HS@199912/28/16 07/03/18 Atorvastatin [Lipitor] 40 mg PO HS 02/06/17 07/03/18 Omeprazole [PriLOSEC] 40 mg PO DAILY 02/06/17 07/03/18 Potassium Chloride [Klor-Con 10] 10 meq PO DAILY@1600 02/06/17 07/03/18 Trospium Chloride [Sanctura XR] 60 mg PO DAILY 02/06/17 07/03/18 Carvedilol [Coreg] 3.125 mg PO BID 07/03/18 07/03/18 Docusate [Colace] 100 mg PO BID 07/03/18 07/03/18 Neupro 2mg Patch 1 patch TOPICAL HS 07/03/18 07/03/18 Previous Rx's Medication Instructions Recorded Furosemide [Lasix] 80 mg PO BID@0900,1600 #60 tab 02/10/17 Allergies Allergy/AdvReac Type Severity Reaction Status Date / Time No Known Allergies Allergy Verified 07/03/18 17:58 Review of Systems ROS Statement: Those systems with pertinent positive or pertinent negative responses have been documented in the HPI. ROS Other: All systems not noted in ROS Statement are negative. Past Medical History Past Medical History: Coronary Artery Disease (CAD), Chest Pain / Angina, Heart Failure, GERD/Reflux, Hyperlipidemia, Hypertension, Myocardial Infarction ([place]), Musculoskeletal Disorder, Neurologic Disorder, Osteoarthritis (OA), Prostate Disorder, Renal Disease, Sleep Apnea/CPAP/BIPAP Additional Past Medical History / Comment(s): Recent admission to [facility] with cellulitis scalp. 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 Last Myocardial Infarction Date:: 2011 History of Any Multi-Drug Resistant Organisms: None Reported Past Surgical History: Coronary Bypass/CABG, Heart Catheterization, Heart Catheterization With Stent, Joint Replacement, Tonsillectomy Additional Past Surgical History / Comment(s): 2 VESSEL CABG 30 YRS AGO, bilateral knee replacements, stents placed 2011, ERENDIRA shoulder ARTHROTOMY, FINGER SX, EGD/COLONNOSCOPY,RT FOOT SX. Past Anesthesia/Blood Transfusion Reactions: No Reported Reaction Additional Past Anesthesia/Blood Transfusion Reaction / Comment(s): Pt takes a long time waking up after general anesthesia. HAD BLOOD TRANSFUSION-NO REACTION TO IT. Date of Last Stent Placement:: 2011 Past Psychological History: No Psychological Hx Reported Smoking Status: Never smoker Past Alcohol Use History: Occasional Past Drug Use History: None Reported - Past Family History Father Family Medical History: Cancer, Chest Pain / Angina, Congestive Heart Failure ( CHF), Coronary Artery Disease (CAD), Hypertension, Myocardial Infarction ([place]) Mother Additional Family Medical History / Comment(s): hit by a car causing General Exam Limitations: no limitations General appearance: alert, in no apparent distress, other (This is a well- developed, well-nourished elderly male patient in no acute distress. Vital signs upon presentation are temperature 98.0F, pulse 68, respirations 20, blood pressure 105/72, pulse ox 97% on room air.) Head exam: Present: other (3 cm laceration to the left posterior parietal scalp. 2 cm laceration to the occiptal scalp) Eye exam: Present: normal appearance, PERRL, EOMI. Absent: scleral icterus, conjunctival injection, nystagmus, periorbital swelling ENT exam: Present: normal exam, normal oropharynx, mucous membranes moist, TM's normal bilaterally Neck exam: Present: normal inspection, full ROM, other (Nontender, no step-off, no deformity to firm midline palpation of the posterior cervical spine. Full range of motion without pain or limitation.). Absent: tenderness, meningismus, lymphadenopathy Respiratory exam: Present: normal lung sounds bilaterally. Absent: respiratory distress, wheezes, rales, rhonchi, stridor Cardiovascular Exam: Present: regular rate, normal rhythm, normal heart sounds. Absent: systolic murmur, diastolic murmur, rubs, gallop, clicks GI/Abdominal exam: Present: soft, normal bowel sounds. Absent: distended, tenderness, guarding, rebound, rigid Extremities exam: Present: full ROM, normal capillary refill, other (Patient has soft tissue swelling to the dorsal aspect of the right foot over the fourth and fifth metatarsal. Skin to the foot is pink, warm, and dry. Cap refills less than 3 seconds. Pedal and posttibial pulses 2+ and equal bilaterally. Patient has abrasion to the left dorsal elbow. Skin to the left upper chest is pink, warm, and dry. Cap refills less than 3 seconds. Radial pulses 2+ and equal bilaterally. Patient has full range of motion of the left elbow and no bony tenderness is noted to palpation.). Absent: normal inspection, tenderness , pedal edema, joint swelling, calf tenderness Back exam: Present: normal inspection Neurological exam: Present: alert, CN II-XII intact. Absent: oriented X3 ( Oriented 2) Psychiatric exam: Present: normal affect, normal mood Skin exam: Present: warm, dry, intact, normal color. Absent: rash Course Vital Signs 07/03/18 07/03/18 17:34 19:37 Temperature 98.0 F 97.9 F Pulse Rate 68 73 Respiratory 20 16 Rate Blood Pressure 105/72 103/72 O2 Sat by Pulse 97 99 Oximetry Procedures - Laceration Laceration #1 Indication: laceration Site: scalp Size (cm): 2 Description: linear Depth: simple, single layer Type of Sutures: other (Abie) Number of Sutures: 3 Patient Tolerated Procedure: well, no complications Laceration #2 Indication: laceration Site: scalp Size (cm): 3 Description: linear Depth: simple, single layer Size of Sutures: other Number of Sutures: 4 Patient Tolerated Procedure: well, no complications Medical Decision Making - Medical Decision Making 87-year-old male patient presents the emergency department today for evaluation after experiencing a fall at home. Physical examination did reveal 2 lacerations to the posterior scalp. Both were repaired as documented. Patient also had some soft tissue swelling to the dorsal aspect of the right foot. X- ray the foot was negative for any acute fractures did show some osteoarthritic changes. CT brain and C-spine were performed and showed no acute abnormalities. Patient did not have any significant pain here in the emergency department, did declined any pain medication. Patient was neurologically intact throughout visit. He'll be discharged home at this time to follow-up with his primary care physician for recheck in 1-2 days. He is instructed to have the gia removed from his scalp in 7 days. Return parameters are discussed in detail. Patient and family verbalize understanding and agree with this plan. - Radiology Data Radiology results: report reviewed, image reviewed 3 views of the right foot are obtained. Report was reviewed in its entirety. Impression by Dr. Ribeiro shows osteoarthritis of the first tarsometatarsal joint with subchondral cystic change that has progressed compared to old exam. No acute fracture seen. No sign of inflammatory arthritis. Mild osteoarthritis at the first MP joint. CT of the brain and C-spine without contrast was performed. Report was reviewed in its entirety. Impression by Dr. Ribeiro shows cerebral atrophy. No acute intracranial abnormality. Left scalp occipital swelling. Moderate multilevel spondylosis. No fracture. There is overall no adverse change compared to old exam. Disposition Clinical Impression: Laceration of head, Elbow abrasion, Contusion of right foot Disposition: HOME SELF-CARE Condition: Good Instructions: Laceration (ED), Fall Prevention for Older Adults (ED), Head Injury (ED), Contusion in Adults (ED), Abrasion (ED) Additional Instructions: Keep wounds clean and dry. Return in 7 days for removal of gia. Monitor for signs or symptoms of worsening head injury including but not limited to confusion, headache, vomiting, dizziness, or weakness. Follow-up with the primary care physician for recheck in 1-2 days. Return here immediately for any new, worsening, or concerning symptoms. Is patient prescribed a controlled substance at d/c from ED?: No Referrals: Tye Valdez MD [Primary Care Provider] - 1-2 days Time of Disposition: 19:23
--- NOTE | 2018-07-03 18:47 | XR ---
EXAMINATION TYPE: XR foot complete RT DATE OF EXAM: 07/03/2018 COMPARISON: NONE HISTORY: 08/26/2014 TECHNIQUE: Pain and injury FINDINGS: There is a plate with screws fixating old fracture of the second metatarsal shaft. There is spurring at the first tarsometatarsal joint. I see no acute fracture nor dislocation. There are cyst ic changes on both sides of the first tarsometatarsal joint. There is moderate plantar calcaneal spur ring. IMPRESSION: Osteoarthritis at the first tarsometatarsal joint with subchondral cystic change that has progressed compared to old exam. No acute fracture seen. No sign of inflammatory arthritis. Mild ost eoarthritis at the first MP joint.
--- NOTE | 2018-07-03 19:21 | CT ---
EXAMINATION TYPE: CT brain ismael brooke DATE OF EXAM: 07/03/2018 COMPARISON: 01/13/2017 HISTORY: laceration on head from fall neck pain CT DLP: 1467.9 mGycm Automated exposure control for dose reduction was used. TECHNIQUE: CT scan of the head and cervical spine are performed without contrast. FINDINGS: There is some cerebral cortical atrophy. There is no mass effect nor midline shift. There is no sign of intracranial hemorrhage. There is left occipital mild scalp soft tissue swelling. The calvarium is intact. There is some straightening of the cervical vertebra. There is disc space narrowing from C3 to C7 wit h spurring of the endplates. Facet joints are intact. Skull base is intact. There is no compression f racture. There is no subluxation. IMPRESSION: Cerebral atrophy. No acute intracranial abnormality. Left scalp occipital swelling. Moderate multilevel spondylosis. No fracture. There is overall no adverse change compared to old exam .
[2018-07-03 19:38] VITALS: BP 103/72; PULSE 73; RESP 16; TEMP 97.9
== END 2018-07-03 19:37 | disposition home or self-care (01) ==
LOC: EC 17:33
DX: S01.01XA Laceration without foreign body of scalp, initial encounter (principal); S90.31XA Contusion of right foot, initial encounter; S50.312A Abrasion of left elbow, initial encounter; M19.071 Primary osteoarthritis, right ankle and foot; G31.9 Degenerative disease of nervous system, unspecified; M47.812 Spondylosis without myelopathy or radiculopathy, cervical region; E78.5 Hyperlipidemia, unspecified; I50.9 Heart failure, unspecified; I25.10 Atherosclerotic heart disease of native coronary artery without angina pectoris; I13.0 Hypertensive heart and chronic kidney disease with heart failure and stage 1 through stage 4 chronic kidney disease, or unspecified chronic kidney disease; N18.3 Chronic kidney disease, stage 3 (moderate); G20 Parkinson's disease; G47.30 Sleep apnea, unspecified; N40.0 Benign prostatic hyperplasia without lower urinary tract symptoms; K21.9 Gastro-esophageal reflux disease without esophagitis; Z79.82 Long term (current) use of aspirin; Z79.899 Other long term (current) drug therapy; Z99.89 Dependence on other enabling machines and devices; Z87.39 Personal history of other diseases of the musculoskeletal system and connective tissue; Z95.1 Presence of aortocoronary bypass graft; Z98.890 Other specified postprocedural states; W01.111A Fall on same level from slipping, tripping and stumbling with subsequent striking against power tool or machine, initial encounter; Y93.89 Activity, other specified; Y92.009 Unspecified place in unspecified non-institutional (private) residence as the place of occurrence of the external cause
CPT/HCPCS: 12002; 70450; 72125; 99283

== ENCOUNTER 2019-05-07 21:55 | Emergency (ER) | payer MEDICARE, BC ==
[2019-05-07 22:02] VITALS: RESP 18
--- NOTE | 2019-05-07 22:51 | ED ---
Fall HPI - General Chief Complaint: Fall Stated Complaint: fall Time Seen by Provider: 05/07/19 22:05 Source: patient, family Mode of arrival: wheelchair - History of Present Illness Initial Comments: Dictation was produced using [employer] dictation software. please excuse any grammatical, word or spelling errors. Chief Complaint: 88-year-old male presents after fall. History of Present Illness: Patient is a 88-year-old male has past medical history of unsteady gait secondary to chronic injuries. He was walking around at home when he fell. Patient had an unwitnessed fall. He was brought in by family member. Patient is a history of falling. He normally is supposed to ambulate with a cane. Patient is a poor historian at this time. He however denies that he had loss of consciousness. Patient has no complaints at this time. The ROS documented in this emergency department record has been reviewed and confirmed by me. Those systems with pertinent positive or negative responses have been documented in the HPI. All other systems are other negative and/or noncontributory. PHYSICAL EXAM: General Impression: Alert and oriented x3, not in acute distress HEENT: Stellate laceration to the occiput, extra-ocular movements intact, pupils equal and reactive to light bilaterally, mucous membranes moist. Cardiovascular: Heart regular rate and rhythm, S1&S2 audible, no murmurs, rubs or gallops Chest: Lungs clear to auscultation bilaterally, no rhonchi, no wheeze, no rales Abdomen: Bowel sounds present, abdomen soft, non-tender, non-distended, no organomegaly Musculoskeletal: Pulses present and equal in all extremities, no peripheral edema Motor: no focal deficits noted Neurological: CN II-XII grossly intact, no focal motor or sensory deficits noted Skin: Intact with no visualized rashes Psych: Normal affect and mood ED course: 88-year-old male with past medical history of multiple falls presents today after fall. Patient is laceration to the head. He denies any complaints at this time. Besides what is on the occiput of his head there is no other physical exam findings of traumatic injuries. All signs upon arrival are within acceptable limits. Family member at bedside reports that patient is acting at baseline Laboratory evaluation obtained. Labs are grossly unremarkable. Computed tomography scan of the head and C-spine are unremarkable. Chest x-ray and pelvis x-ray is nonacute. Patient ambulatory at bedside patient appears comfortable currently. Family member feels comfortable taking patient home. They're warned of signs of delayed intracranial bleed. The agree to return to the emergency department if patient experiences symptoms. Otherwise advised follow-up with primary care physician upon discharge. - Related Data Home Medications Medication Instructions Recorded Confirmed Aspirin 81 mg PO DAILY 03/19/14 05/07/19 Carbidopa-Levodopa 25-100 mg 1 tab PO QID 03/19/14 05/07/19 [Sinemet 25-100 mg] Finasteride 5 mg PO DAILY@1200 03/19/14 05/07/19 rOPINIRole HCL [Requip] 2 mg PO QAM 03/19/14 05/07/19 Spironolactone [Aldactone] 25 mg PO DAILY@1200 12/28/16 05/07/19 levETIRAcetam [Keppra] 500 mg PO BID@1200,199912/28/16 05/07/19 rOPINIRole HCL [Requip] 3 mg PO HS@199912/28/16 05/07/19 Atorvastatin [Lipitor] 40 mg PO HS 02/06/17 05/07/19 Omeprazole [PriLOSEC] 40 mg PO DAILY 02/06/17 05/07/19 Potassium Chloride [Klor-Con 10] 10 meq PO DAILY@1600 02/06/17 05/07/19 Trospium Chloride [Sanctura XR] 60 mg PO DAILY 02/06/17 05/07/19 Carvedilol [Coreg] 3.125 mg PO BID 07/03/18 05/07/19 Docusate [Colace] 100 mg PO DAILY 07/03/18 05/07/19 Digoxin [Lanoxin] 125 mcg PO DAILY 05/07/19 05/07/19 Furosemide [Lasix] 40 mg PO DAILY 05/07/19 05/07/19 Allergies Allergy/AdvReac Type Severity Reaction Status Date / Time No Known Allergies Allergy Verified 05/07/19 22:31 Review of Systems ROS Statement: Those systems with pertinent positive or pertinent negative responses have been documented in the HPI. ROS Other: All systems not noted in ROS Statement are negative. Past Medical History Past Medical History: Coronary Artery Disease (CAD), Chest Pain / Angina, Heart Failure, GERD/Reflux, Hyperlipidemia, Hypertension, Myocardial Infarction ([place]), Musculoskeletal Disorder, Neurologic Disorder, Osteoarthritis (OA), Prostate Disorder, Renal Disease, Sleep Apnea/CPAP/BIPAP Additional Past Medical History / Comment(s): Recent admission to [facility] with cellulitis scalp. 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 Last Myocardial Infarction Date:: 2011 History of Any Multi-Drug Resistant Organisms: None Reported Past Surgical History: Coronary Bypass/CABG, Heart Catheterization, Heart Catheterization With Stent, Joint Replacement, Tonsillectomy Additional Past Surgical History / Comment(s): 2 VESSEL CABG 30 YRS AGO, bilateral knee replacements, stents placed 2011, ERENDIRA shoulder ARTHROTOMY, FINGER SX, EGD/COLONNOSCOPY,RT FOOT SX. Past Anesthesia/Blood Transfusion Reactions: No Reported Reaction Additional Past Anesthesia/Blood Transfusion Reaction / Comment(s): Pt takes a long time waking up after general anesthesia. HAD BLOOD TRANSFUSION-NO REACTION TO IT. Date of Last Stent Placement:: 2011 Past Psychological History: No Psychological Hx Reported Smoking Status: Never smoker Past Alcohol Use History: Occasional Past Drug Use History: None Reported - Past Family History Father Family Medical History: Cancer, Chest Pain / Angina, Congestive Heart Failure (CHF), Coronary Artery Disease (CAD), Hypertension, Myocardial Infarction ([place]) Mother Additional Family Medical History / Comment(s): hit by a car causing General Exam Limitations: no limitations Course Vital Signs 05/07/19 21:59 Temperature 97.3 F L Pulse Rate 60 Respiratory 18 Rate Blood Pressure 125/66 O2 Sat by Pulse 98 Oximetry Procedures - Laceration Laceration #1 Consent Obtained: verbal consent, written consent Indication: laceration Site: scalp Description: stellate Depth: simple, single layer Anesthetic Used: lidocaine 1%, with epi Anesthesia Technique: local infiltration Pre-repair: irrigated extensively Type of Sutures: other Size of Sutures: other Patient Tolerated Procedure: well Medical Decision Making - Lab Data Result diagrams: 05/07/19 23:20 05/07/19 23:20 Lab Results 05/07/19 05/07/19 Range/Units 23:20 23:20 WBC 11.7 H (3.8-10.6) k/uL RBC 5.13 (4.30-5.90) m/uL Hgb 13.9 (13.0-17.5) gm/dL Hct 43.7 (39.0-53.0) % MCV 85.3 (80.0-100.0) fL MCH 27.1 (25.0-35.0) pg MCHC 31.8 (31.0-37.0) g/dL RDW 16.7 H (11.5-15.5) % Plt Count 182 (150-450) k/uL Neutrophils % 77 % Lymphocytes % 12 % Monocytes % 5 % Eosinophils % 3 % Basophils % 1 % Neutrophils # 9.0 H (1.3-7.7) k/uL Lymphocytes # 1.5 (1.0-4.8) k/uL Monocytes # 0.6 (0-1.0) k/uL Eosinophils # 0.3 (0-0.7) k/uL Basophils # 0.1 (0-0.2) k/uL Hypochromasia Slight Anisocytosis Slight Sodium 138 (137-145) mmol/L Potassium 4.9 (3.5-5.1) mmol/L Chloride 105 (98-107) mmol/L Carbon Dioxide 24 (22-30) mmol/L Anion Gap 9 mmol/L BUN 29 H (9-20) mg/dL Creatinine 1.45 H (0.66-1.25) mg/dL Est GFR (CKD-EPI)AfAm 50 (>60 ml/min/1.73 sqM) Est GFR (CKD-EPI)NonAf 43 (>60 ml/min/1.73 sqM) Glucose 109 H (74-99) mg/dL Calcium 8.7 (8.4-10.2) mg/dL Disposition Clinical Impression: Fall, Laceration of head Disposition: HOME SELF-CARE Is patient prescribed a controlled substance at d/c from ED?: No Referrals: Tye Valdez MD [Primary Care Provider] - 1-2 days Time of Disposition: 00:15
--- NOTE | 2019-05-07 23:29 | CT ---
EXAM: CT Head Without Intravenous Contrast CLINICAL HISTORY: ITS.REASON CT Reason: Pain TECHNIQUE: Axial computed tomography images of the head/brain without intravenous contrast. This CT exam was performed using one or more of the following dose reduction techniques: automated exposure control, adjustment of the mA and/or kV according to patient size, and/or use of iterative reconstruction technique. COMPARISON: No relevant prior studies available. FINDINGS: Brain: No hemorrhage. No edema. Ventricles: Unremarkable. No ventriculomegaly. Bones/joints: No acute fracture. Soft tissues: Unremarkable. Sinuses: No fluid levels. Mastoid air cells: Unremarkable as visualized. No mastoid effusion. IMPRESSION: No acute intracranial findings EXAM: CT Cervical Spine Without Intravenous Contrast CLINICAL HISTORY: ITS.REASON CT Reason: Pain TECHNIQUE: Axial computed tomography images of the cervical spine without intravenous contrast. This CT exam was performed using one or more of the following dose reduction techniques: automated exposure control, adjustment of the mA and/or kV according to patient size, and/or use of iterative reconstruction technique. COMPARISON: No relevant prior studies available. FINDINGS: Vertebrae: No acute fracture. Discs/spinal canal/neural foramina: No suspicious findings. Soft tissues: Unremarkable. IMPRESSION: No acute findings.
--- NOTE | 2019-05-07 23:32 | XR ---
EXAM: XR Chest, 1 View CLINICAL HISTORY: ITS.REASON XR Reason: fall TECHNIQUE: Frontal view of the chest. COMPARISON: No relevant prior studies available. FINDINGS: Lungs: Unremarkable. No consolidation. Pleural space: Unremarkable. No pneumothorax. Heart: No pneumomediastinum. Mediastinum: Unremarkable. Bones/joints: No definite fracture. IMPRESSION: No acute findings.
[2019-05-07 23:33] LABS: Anisocytosis Slight; Basophils # (A) 0.1 k/uL (0-0.2); Basophils % (A) 1 %; Eosinophils # (A) 0.3 k/uL (0-0.7); Eosinophils % (A) 3 %; HCT 43.7 % (39.0-53.0); HGB 13.9 gm/dL (13.0-17.5); Hypochromasia Slight; Lymphocytes # (A) 1.5 k/uL (1.0-4.8); Lymphocytes % (A) 12 %; MCH 27.1 pg (25.0-35.0); MCHC 31.8 g/dL (31.0-37.0); MCV 85.3 fL (80.0-100.0); Mean Platelet Volume 8.8; Monocytes # (A) 0.6 k/uL (0-1.0); Monocytes % (A) 5 %; Neutrophils % (A) 77 %; Platelet Count 182 k/uL (150-450); RBC 5.13 m/uL (4.30-5.90); RDW 16.7 % (11.5-15.5); WBC 11.7 k/uL (3.8-10.6)
--- NOTE | 2019-05-07 23:33 | XR ---
EXAM: XR Pelvis, 1 or 2 Views CLINICAL HISTORY: ITS.REASON XR Reason: Pain TECHNIQUE: Frontal view of the pelvis. COMPARISON: No relevant prior studies available. FINDINGS: Bones/joints: Unremarkable. No acute fracture. No dislocation. Soft tissues: No acute findings. IMPRESSION: No acute findings.
[2019-05-07] MEDS ORDERED: LIDOCAINE 1%-EPI 1:100,000 20 ML VIAL SQ STA (23:36)
[2019-05-07 23:42] LABS: Calcium 8.7 mg/dL (8.4-10.2); Potassium 4.9 mmol/L (3.5-5.1)
[2019-05-08 00:36] VITALS: BP 103/84; PULSE 69; TEMP 98.3
== END 2019-05-08 00:34 | disposition home or self-care (01) ==
LOC: EC 21:55
DX: S01.01XA Laceration without foreign body of scalp, initial encounter (principal); I25.119 Atherosclerotic heart disease of native coronary artery with unspecified angina pectoris; I13.0 Hypertensive heart and chronic kidney disease with heart failure and stage 1 through stage 4 chronic kidney disease, or unspecified chronic kidney disease; N18.3 Chronic kidney disease, stage 3 (moderate); I50.9 Heart failure, unspecified; D63.1 Anemia in chronic kidney disease; I25.2 Old myocardial infarction; K21.9 Gastro-esophageal reflux disease without esophagitis; E78.5 Hyperlipidemia, unspecified; M19.90 Unspecified osteoarthritis, unspecified site; N40.0 Benign prostatic hyperplasia without lower urinary tract symptoms; G47.30 Sleep apnea, unspecified; Z99.89 Dependence on other enabling machines and devices; G20 Parkinson's disease; E66.9 Obesity, unspecified; Z68.21 Body mass index [BMI] 21.0-21.9, adult; Z79.82 Long term (current) use of aspirin; Z79.899 Other long term (current) drug therapy; Z95.1 Presence of aortocoronary bypass graft; Z95.5 Presence of coronary angioplasty implant and graft; Z96.653 Presence of artificial knee joint, bilateral; W19.XXXA Unspecified fall, initial encounter; Y93.01 Activity, walking, marching and hiking
CPT/HCPCS: 12002; 36415; 70450; 71045; 72125; 72170; 80048; 85025; 99284

== ENCOUNTER 2019-08-16 13:54 | Emergency (ER) | payer MEDICARE, BC ==
[2019-08-16 14:14] VITALS: RESP 18; TEMP 97.3
[2019-08-16 15:18] LABS: Basophils % (A) 0 %; Eosinophils # (A) 0.7 k/uL (0-0.7); Eosinophils % (A) 5 %; HCT 42.3 % (39.0-53.0); Lymphocytes # (A) 1.6 k/uL (1.0-4.8); Lymphocytes % (A) 11 %; MCH 29.4 pg (25.0-35.0); MCV 88.9 fL (80.0-100.0); Mean Platelet Volume 6.9; Monocytes # (A) 0.8 k/uL (0-1.0); Monocytes % (A) 6 %; Neutrophils # (A) 11.2 k/uL (1.3-7.7); Neutrophils % (A) 76 %; Platelet Count 202 k/uL (150-450); RBC 4.76 m/uL (4.30-5.90); RDW 15.7 % (11.5-15.5); WBC 14.7 k/uL (3.8-10.6)
--- NOTE | 2019-08-16 15:24 | CT ---
EXAMINATION TYPE: CT brain ismael brooke DATE OF EXAM: 08/16/2019 COMPARISON: 05/07/2019 HISTORY: weakness, confusion, ams CT DLP: 1335.9 mGycm Automated exposure control for dose reduction was used. TECHNIQUE: CT scan of the head and cervical spine are performed without contrast. FINDINGS: There is cerebral cortical atrophy. There is no mass effect nor midline shift. There is n o sign of intracranial hemorrhage. The calvarium is intact. There is some hypodensity in the white ma tter left posterior parietal lobe. There is straightening of the cervical spine with slight upper cervical kyphotic curvature. There is multilevel degenerative disc space narrowing and spur formation. There is no evidence of acute cervic al spine fracture. There is multilevel mild facet arthropathy. Skull base is intact. IMPRESSION: Cerebral atrophy. No acute intracranial abnormality. 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 Multilevel spondylotic changes. No fracture. No change compared to old exam.
[2019-08-16 15:26] LABS: Appearance,Urine Clear (Clear); Bilirubin,Urine Negative (Negative); Blood,Urine Negative (Negative); Color,Urine Yellow; Glucose,Urine (UA) Negative (Negative); Ketones,Urine Negative (Negative); Leukocyte Esterase,Urine Negative (Negative); Nitrite,Urine Negative (Negative); PH, Urine 5.5 (5.0-8.0); Protein,Urine Negative (Negative); Specific Gravity,Urine 1.012 (1.001-1.035); Urobilinogen,Urine <2.0 mg/dL (<2.0)
--- NOTE | 2019-08-16 15:27 | XR ---
EXAMINATION TYPE: XR elbow limited RT DATE OF EXAM: 08/16/2019 COMPARISON: NONE HISTORY: Elbow pain TECHNIQUE: 2 views FINDINGS: I see no fracture nor dislocation. There is some spurring on the olecranon process. There i s no sign of joint effusion. There is posterior soft tissue swelling. There is 3 mm density projected in the soft tissues on the anterior aspect of the elbow joint consistent with foreign body. IMPRESSION: Small foreign body. Posterior soft tissue swelling. No fracture seen.
--- NOTE | 2019-08-16 15:28 | XR ---
EXAMINATION TYPE: XR wrist limited RT DATE OF EXAM: 08/16/2019 COMPARISON: NONE HISTORY: Pain TECHNIQUE: 2 views FINDINGS: There is some widening of the scapholunate joint space. There is narrowing of radiocarpal j oint space. Metacarpals appear intact. There is narrowing and spurring at the first carpometacarpal j oint. IMPRESSION: No fracture. Evidence of old ligamentous injury at the scapholunate joint. Osteoarthritis . No acute bony abnormality.
--- NOTE | 2019-08-16 15:29 | XR ---
EXAMINATION TYPE: XR hand complete RT DATE OF EXAM: 08/16/2019 COMPARISON: NONE HISTORY: Pain TECHNIQUE: 3 views FINDINGS: There is some narrowing of the IP joints with variable spur formation. There is no subluxat ion. There are no erosions. I see no acute fracture nor dislocation. There is no significant osteopen ia. IMPRESSION: Multiple areas of osteoarthritis. No fracture seen.
[2019-08-16 15:34] LABS: ALT <6 U/L (21-72); AST 15 U/L (17-59); African American GFR (CKD) 63 (>60 ml/min/1.73 sqM); Albumin 3.5 g/dL (3.5-5.0); Alkaline Phosphatase 146 U/L (38-126); Anion Gap 11 mmol/L; Blood Urea Nitrogen 34 mg/dL (9-20); Calcium 8.8 mg/dL (8.4-10.2); Carbon Dioxide 20 mmol/L (22-30); Chloride 106 mmol/L (98-107); Glucose 142 mg/dL (74-99); Potassium 4.6 mmol/L (3.5-5.1); Sodium 137 mmol/L (137-145); Total Protein 6.5 g/dL (6.3-8.2); Uric Acid 11.3 mg/dL (3.5-8.5)
[2019-08-16] MEDS ORDERED: INDOMETHACIN 25 MG CAP PO STA ×2 (16:41→16:46)
--- NOTE | 2019-08-16 16:47 | ED ---
Upper Extremity HPI - General Chief Complaint: Extremity Injury, Upper Stated Complaint: Rt Hand Injury Time Seen by Provider: 08/16/19 14:15 Source: family Mode of arrival: wheelchair Limitations: altered mental status, physical limitation - History of Present Illness Initial Comments: The patient is an 88-year-old male presents emergency room and accompanied by his family with report of right hand pain. The patient has a history of Parkinson's and dementia. He normally lives with his however his just had hip surgery and is in rehab. The patient has been residing at home alone. When they came to see the patient today they noted that he had swelling to his right hand. He was complaining of pain. They're unsure if the patient sust ained a fall as he does have a history of multiple falls in the past. The patient does not admit to falling however they state that he appears a little bit more confused today. This is not out of the patient's normal because of this previous history but they did feel the need to get his wrist evaluated. There is some swelling over the dorsal aspect. He has a history of arthritis. Denies a history of gout. The patient's denies any numbness or tingling in his hand. There is palpable warmth. He is eyeing any headaches or visual changes. No neck pain. Denies chest pain or shortness of breath. Denies any additional arm pain. There is a skin tear noted over the patient's right elbow. Denies any pain in his lower extremity. He is ambulatory without difficulty. No taking any medications [id number] for his pain. Remainder of the HPI is limited because the patient's mentation. - Related Data Home Medications Medication Instructions Recorded Confirmed Aspirin 81 mg PO DAILY 03/19/14 08/16/19 Carbidopa-Levodopa 25-100 mg 1 tab PO QID 03/19/14 08/16/19 [Sinemet 25-100 mg] Finasteride 5 mg PO DAILY@1200 03/19/14 08/16/19 rOPINIRole HCL [Requip] 2 mg PO QAM 03/19/14 08/16/19 Spironolactone [Aldactone] 25 mg PO DAILY@1200 12/28/16 08/16/19 levETIRAcetam [Keppra] 500 mg PO BID@1200,199912/28/16 08/16/19 rOPINIRole HCL [Requip] 3 mg PO HS@199912/28/16 08/16/19 Atorvastatin [Lipitor] 40 mg PO HS 02/06/17 08/16/19 Omeprazole [PriLOSEC] 40 mg PO DAILY 02/06/17 08/16/19 Potassium Chloride [Klor-Con 10] 10 meq PO DAILY@1600 02/06/17 08/16/19 Trospium Chloride [Sanctura XR] 60 mg PO DAILY 02/06/17 08/16/19 Carvedilol [Coreg] 3.125 mg PO BID 07/03/18 08/16/19 Docusate [Colace] 100 mg PO BID 07/03/18 08/16/19 Digoxin [Lanoxin] 125 mcg PO Q48H 05/07/19 08/16/19 Furosemide [Lasix] 40 mg PO BID@0800,1600 05/07/19 08/16/19 Albuterol Nebulized [Ventolin 2.5 mg INHALATION RT-Q4H PRN 08/16/19 08/16/19 Nebulized] Neopro Patch 2mg 1 patch TOPICAL HS 08/16/19 08/16/19 Previous Rx's Medication Instructions Recorded Cephalexin [Keflex] 500 mg PO Q6HR #28 cap 08/16/19 Indomethacin [Indocin] 25 mg PO TID PRN #21 capsule 08/16/19 Allergies Allergy/AdvReac Type Severity Reaction Status Date / Time No Known Allergies Allergy Verified 08/16/19 15:03 Review of Systems ROS Statement: Those systems with pertinent positive or pertinent negative responses have been documented in the HPI. ROS Other: All systems not noted in ROS Statement are negative. Past Medical History Past Medical History: Coronary Artery Disease (CAD), Chest Pain / Angina, Heart Failure, GERD/Reflux, Hyperlipidemia, Hypertension, Myocardial Infarction ([place]), Musculoskeletal Disorder, Neurologic Disorder, Osteoarthritis (OA), Prostate Disorder, Renal Disease, Sleep Apnea/CPAP/BIPAP Additional Past Medical History / Comment(s): cellulitis scalp. 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 Last Myocardial Infarction Date:: 2011 History of Any Multi-Drug Resistant Organisms: None Reported Past Surgical History: Coronary Bypass/CABG, Heart Catheterization, Heart Catheterization With Stent, Joint Replacement, Tonsillectomy Additional Past Surgical History / Comment(s): 2 VESSEL CABG 30 YRS AGO, bilateral knee replacements, stents placed 2012, ERENDIRA shoulder ARTHROTOMY, FINGER SX, EGD/COLONNOSCOPY,RT FOOT SX. Past Anesthesia/Blood Transfusion Reactions: No Reported Reaction Additional Past Anesthesia/Blood Transfusion Reaction / Comment(s): Pt takes a long time waking up after general anesthesia. HAD BLOOD TRANSFUSION-NO REACTION TO IT. Date of Last Stent Placement:: 2011 Past Psychological History: No Psychological Hx Reported Smoking Status: Never smoker Past Alcohol Use History: Occasional Past Drug Use History: None Reported - Past Family History Father Family Medical History: Cancer, Chest Pain / Angina, Congestive Heart Failure (CHF), Coronary Artery Disease (CAD), Hypertension, Myocardial Infarction ([place]) Mother Additional Family Medical History / Comment(s): hit by a car causing General Exam Limitations: physical limitation General appearance: alert, in no apparent distress Head exam: Present: atraumatic, normocephalic, normal inspection Eye exam: Present: normal appearance, PERRL, EOMI. Absent: scleral icterus, conjunctival injection, periorbital swelling ENT exam: Present: normal exam, mucous membranes moist Neck exam: Present: normal inspection. Absent: tenderness, meningismus, lymphadenopathy Respiratory exam: Present: normal lung sounds bilaterally. Absent: respiratory distress, wheezes, rales, rhonchi, stridor Cardiovascular Exam: Present: regular rate, normal rhythm, normal heart sounds. Absent: systolic murmur, diastolic murmur, rubs, gallop, clicks GI/Abdominal exam: Present: soft, normal bowel sounds. Absent: distended, tenderness, guarding, rebound, rigid Extremities exam: Present: full ROM, normal capillary refill, other (tenderness and swelling to dorsal right hand. MCP joints 2-5 are warm, erythematous and swollen. Normal cap refill. 2+ DP and PT pulses). Absent: tenderness, pedal edema, joint swelling, calf tenderness Back exam: Present: normal inspection Neurological exam: Present: alert, oriented X3, CN II-XII intact Psychiatric exam: Present: normal affect, normal mood Skin exam: Present: warm, dry, normal color, other (skin tear right elbow is well scabbed over). Absent: rash Course Vital Signs 08/16/19 08/16/19 14:11 17:13 Temperature 97.3 F L Pulse Rate 48 L 78 Respiratory 18 18 Rate Blood Pressure 94/64 100/53 O2 Sat by Pulse 96 97 Oximetry Medical Decision Making - Medical Decision Making Upon arrival the patient is placed in room 3. The rest of physical exam is performed. His family is reporting possible increasing confusion I did recommend a full workup. They did agree to this. Laboratory studies were cond ucted. White blood cell count is 14.7. Glucose 142. Uric acid 11.3. C- reactive protein is 52. Urinalysis is negative. I did recommend CT and the patient's brain as there is possibility for fall. CT of the head and cervical spine demonstrates cerebral atrophy, no acute intracranial abnormality. Old left posterior parietal lobe chronic small vessel ischemia unchanged. No fracture. Hand x-ray demonstrates multiple areas of osteoarthritis. No fracture seen. Wrist x-ray demonstrates no fracture. Evidence of old ligamentous injury at this joint. After arthritis. No acute bony abnormality. Right elbow x-ray demonstrates a small foreign body. Posterior soft tissue swelling or did discuss these results with the patient's family. I did place him in an Nick wrap. I did recommend treatment for an inflammatory arthritis. The patient will be treated with indomethacin. He is given a dose in the ER. I will cover the patient with an antibiotic as he does have open skin cracks in the posterior aspect of his hand. He is given a prescription for Keflex. He is to follow-up with orthopedic physician. His has seen Dr. Mack and he is requesting to see him. I provided him with the follow-up information. I did discuss with family or concern for his confusion. Family states that this is his baseline and he does have waxing and waning in his symptoms which is chronic. They state that they will remain with him overnight Up with his primary care physician as well. The patient has any new or worsening symptoms she should be brought back to the emergency room. Patient was then discharged home in stable condition - Lab Data Result diagrams: 08/16/19 14:47 08/16/19 14:47 Lab Results 08/16/19 08/16/19 08/16/19 Range/Units 14:47 14:47 14:47 WBC 14.7 H (3.8-10.6) k/uL RBC 4.76 (4.30-5.90) m/uL Hgb 14.0 (13.0-17.5) gm/dL Hct 42.3 (39.0-53.0) % MCV 88.9 (80.0-100.0) fL MCH 29.4 (25.0-35.0) pg MCHC 33.0 (31.0-37.0) g/dL RDW 15.7 H (11.5-15.5) % Plt Count 202 (150-450) k/uL Neutrophils % 76 % Lymphocytes % 11 % Monocytes % 6 % Eosinophils % 5 % Basophils % 0 % Neutrophils # 11.2 H (1.3-7.7) k/uL Lymphocytes # 1.6 (1.0-4.8) k/uL Monocytes # 0.8 (0-1.0) k/uL Eosinophils # 0.7 (0-0.7) k/uL Basophils # 0.0 (0-0.2) k/uL Sodium 137 (137-145) mmol/L Potassium 4.6 (3.5-5.1) mmol/L Chloride 106 (98-107) mmol/L Carbon Dioxide 20 L (22-30) mmol/L Anion Gap 11 mmol/L BUN 34 H (9-20) mg/dL Creatinine 1.20 (0.66-1.25) mg/dL Est GFR (CKD-EPI)AfAm 63 (>60 ml/min/1.73 sqM) Est GFR (CKD-EPI)NonAf 54 (>60 ml/min/1.73 sqM) Glucose 142 H (74-99) mg/dL Plasma Lactic Acid Ozzy 1.3 (0.7-2.0) mmol/L Uric Acid 11.3 H (3.5-8.5) mg/dL Calcium 8.8 (8.4-10.2) mg/dL Total Bilirubin 1.0 (0.2-1.3) mg/dL AST 15 L (17-59) U/L ALT <6 L (21-72) U/L Alkaline Phosphatase 146 H (38-126) U/L C-Reactive Protein 52.0 H (<10.0) mg/L Total Protein 6.5 (6.3-8.2) g/dL Albumin 3.5 (3.5-5.0) g/dL Urine Color Urine Appearance (Clear) Urine pH (5.0-8.0) Ur Specific [place] (1.001-1.035) Urine Protein (Negative) Urine Glucose (UA) (Negative) Urine Ketones (Negative) Urine Blood (Negative) Urine Nitrite (Negative) Urine Bilirubin (Negative) Urine Urobilinogen (<2.0) mg/dL Ur Leukocyte Esterase (Negative) 08/16/19 Range/Units 14:47 WBC (3.8-10.6) k/uL RBC (4.30-5.90) m/uL Hgb (13.0-17.5) gm/dL Hct (39.0-53.0) % MCV (80.0-100.0) fL MCH (25.0-35.0) pg MCHC (31.0-37.0) g/dL RDW (11.5-15.5) % Plt Count (150-450) k/uL Neutrophils % % Lymphocytes % % Monocytes % % Eosinophils % % Basophils % % Neutrophils # (1.3-7.7) k/uL Lymphocytes # (1.0-4.8) k/uL Monocytes # (0-1.0) k/uL Eosinophils # (0-0.7) k/uL Basophils # (0-0.2) k/uL Sodium (137-145) mmol/L Potassium (3.5-5.1) mmol/L Chloride (98-107) mmol/L Carbon Dioxide (22-30) mmol/L Anion Gap mmol/L BUN (9-20) mg/dL Creatinine (0.66-1.25) mg/dL Est GFR (CKD-EPI)AfAm (>60 ml/min/1.73 sqM) Est GFR (CKD-EPI)NonAf (>60 ml/min/1.73 sqM) Glucose (74-99) mg/dL Plasma Lactic Acid Ozzy (0.7-2.0) mmol/L Uric Acid (3.5-8.5) mg/dL Calcium (8.4-10.2) mg/dL Total Bilirubin (0.2-1.3) mg/dL AST (17-59) U/L ALT (21-72) U/L Alkaline Phosphatase (38-126) U/L C-Reactive Protein (<10.0) mg/L Total Protein (6.3-8.2) g/dL Albumin (3.5-5.0) g/dL Urine Color Yellow Urine Appearance Clear (Clear) Urine pH 5.5 (5.0-8.0) Ur Specific [place] 1.012 (1.001-1.035) Urine Protein Negative (Negative) Urine Glucose (UA) Negative (Negative) Urine Ketones Negative (Negative) Urine Blood Negative (Negative) Urine Nitrite Negative (Negative) Urine Bilirubin Negative (Negative) Urine Urobilinogen <2.0 (<2.0) mg/dL Ur Leukocyte Esterase Negative (Negative) Disposition Clinical Impression: Right hand pain, Inflammatory arthritis Disposition: HOME SELF-CARE Condition: Stable Instructions (If sedation given, give patient instructions): Arthritis (ED) Additional Instructions: Please follow-up with your primary care doctor in 1-2 days for reevaluation. You should also see an orthopedic doctor. Return to the emergency department for any new or worsening symptoms Prescriptions: Indomethacin [Indocin] 25 mg PO TID PRN #21 capsule PRN Reason: Pain Cephalexin [Keflex] 500 mg PO Q6HR #28 cap Is patient prescribed a controlled substance at d/c from ED?: No Referrals: Tye Valdez MD [Primary Care Provider] - 1-2 days Gera Mack MD [STAFF PHYSICIAN] - 1-2 days Time of Disposition: 16:46
[2019-08-16 17:14] VITALS: BP 100/53; PULSE 78
== END 2019-08-16 17:13 | disposition home or self-care (01) ==
LOC: EC 13:54
DX: M19.041 Primary osteoarthritis, right hand (principal); R41.82 Altered mental status, unspecified; G20 Parkinson's disease; F02.80 Dementia in other diseases classified elsewhere, unspecified severity, without behavioral disturbance, psychotic disturbance, mood disturbance, and anxiety; G31.9 Degenerative disease of nervous system, unspecified; S50.351A Superficial foreign body of right elbow, initial encounter; I25.119 Atherosclerotic heart disease of native coronary artery with unspecified angina pectoris; I13.0 Hypertensive heart and chronic kidney disease with heart failure and stage 1 through stage 4 chronic kidney disease, or unspecified chronic kidney disease; N18.3 Chronic kidney disease, stage 3 (moderate); I50.9 Heart failure, unspecified; K21.9 Gastro-esophageal reflux disease without esophagitis; E78.5 Hyperlipidemia, unspecified; I25.2 Old myocardial infarction; G47.30 Sleep apnea, unspecified; K29.70 Gastritis, unspecified, without bleeding; D63.1 Anemia in chronic kidney disease; E66.9 Obesity, unspecified; N40.0 Benign prostatic hyperplasia without lower urinary tract symptoms; Z79.82 Long term (current) use of aspirin; Z79.51 Long term (current) use of inhaled steroids; Z79.899 Other long term (current) drug therapy; Z87.11 Personal history of peptic ulcer disease; Z87.19 Personal history of other diseases of the digestive system; Z87.820 Personal history of traumatic brain injury; Z95.1 Presence of aortocoronary bypass graft; Z68.24 Body mass index [BMI] 24.0-24.9, adult; Z99.89 Dependence on other enabling machines and devices; Z95.5 Presence of coronary angioplasty implant and graft; Z96.653 Presence of artificial knee joint, bilateral; W45.8XXA Other foreign body or object entering through skin, initial encounter
CPT/HCPCS: 36415; 70450; 72125; 80053; 81003; 83605; 84550; 85025; 86140; 99284

== ENCOUNTER 2019-08-21 16:45 | Inpatient (IN) | payer MEDICARE, BC ==
--- NOTE | 2019-08-21 17:50 | ED ---
Recheck HPI - General Chief Complaint: Recheck/Abnormal Lab/Rx Stated Complaint: Abnormal Labs Time Seen by Provider: 08/21/19 17:24 Source: family Mode of arrival: wheelchair Limitations: altered mental status, physical limitation - History of Present Illness Initial Comments: Patient is an 88-year-old male, with past medical history of Parkinson's and dementia, presenting to emergency Department with an elevated WBC. Patient was sent by doctor's office for an increasing WBC. Patient was seen in the ER 5 days ago for inflammation of his right hand. WBC count then was 14.7. Patient had recheck done yesterday and it increased to 17.1. Patient had been on Keflex since initial visit in the ER. Patient is denying any pain at this time. Patient's son does admit to patient having a mild chronic cough. Patient denies any fever, chills, nausea, vomiting, abdominal pain, chest pain, shortness of breath. There are no other complaints at this time. Patient admits to swelling of the right hand has improved. Upon arrival to ER, vital signs are stable, afebrile. - Related Data Home Medications Medication Instructions Recorded Confirmed Aspirin 81 mg PO DAILY 03/19/14 08/16/19 Carbidopa-Levodopa 25-100 mg 1 tab PO QID 03/19/14 08/16/19 [Sinemet 25-100 mg] Finasteride 5 mg PO DAILY@1200 03/19/14 08/16/19 rOPINIRole HCL [Requip] 2 mg PO QAM 03/19/14 08/16/19 Spironolactone [Aldactone] 25 mg PO DAILY@1200 12/28/16 08/16/19 levETIRAcetam [Keppra] 500 mg PO BID@1199,199912/28/16 08/16/19 rOPINIRole HCL [Requip] 3 mg PO HS@199912/28/16 08/16/19 Omeprazole [PriLOSEC] 40 mg PO DAILY 02/06/17 08/16/19 Potassium Chloride [Klor-Con 10] 10 meq PO DAILY@1600 02/06/17 08/16/19 Trospium Chloride [Sanctura XR] 60 mg PO DAILY 02/06/17 08/16/19 Carvedilol [Coreg] 3.125 mg PO BID 07/03/18 08/16/19 Docusate [Colace] 100 mg PO BID 07/03/18 08/16/19 Digoxin [Lanoxin] 125 mcg PO Q48H 05/07/19 08/16/19 Furosemide [Lasix] 40 mg PO BID@0800,1600 05/07/19 08/16/19 Neopro Patch 2mg 1 patch TOPICAL HS 08/16/19 08/16/19 Atorvastatin [Lipitor] 20 mg PO HS 08/21/19 08/21/19 Previous Rx's Medication Instructions Recorded Cephalexin [Keflex] 500 mg PO Q6HR #28 cap 08/16/19 Indomethacin [Indocin] 25 mg PO TID PRN #21 capsule 08/16/19 Allergies Allergy/AdvReac Type Severity Reaction Status Date / Time No Known Allergies Allergy Verified 08/21/19 18:42 Review of Systems ROS Statement: Those systems with pertinent positive or pertinent negative responses have been documented in the HPI. ROS Other: All systems not noted in ROS Statement are negative. Past Medical History Past Medical History: Coronary Artery Disease (CAD), Chest Pain / Angina, Heart Failure, GERD/Reflux, Hyperlipidemia, Hypertension, Myocardial Infarction ([place]), Musculoskeletal Disorder, Neurologic Disorder, Osteoarthritis (OA), Prostate Disorder, Renal Disease, Sleep Apnea/CPAP/BIPAP Additional Past Medical History / Comment(s): cellulitis scalp. 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 Last Myocardial Infarction Date:: 2011 History of Any Multi-Drug Resistant Organisms: None Reported Past Surgical History: Coronary Bypass/CABG, Heart Catheterization, Heart Catheterization With Stent, Joint Replacement, Tonsillectomy Additional Past Surgical History / Comment(s): 2 VESSEL CABG 30 YRS AGO, bilateral knee replacements, stents placed 2011, ERENDIRA shoulder ARTHROTOMY, FINGER SX, EGD/COLONNOSCOPY,RT FOOT SX. Past Anesthesia/Blood Transfusion Reactions: No Reported Reaction Additional Past Anesthesia/Blood Transfusion Reaction / Comment(s): Pt takes a long time waking up after general anesthesia. HAD BLOOD TRANSFUSION-NO REACTION TO IT. Date of Last Stent Placement:: 2011 Past Psychological History: No Psychological Hx Reported Smoking Status: Never smoker Past Alcohol Use History: Occasional Past Drug Use History: None Reported - Past Family History Father Family Medical History: Cancer, Chest Pain / Angina, Congestive Heart Failure (CHF), Coronary Artery Disease (CAD), Hypertension, Myocardial Infarction ([place]) Mother Additional Family Medical History / Comment(s): hit by a car causing General Exam - General Exam Comments Initial Comments: GENERAL: Well-appearing, well-nourished and in no acute distress. HEAD: Atraumatic, normocephalic. EYES: Pupils equal round and reactive to light, extraocular movements intact, sclera anicteric, conjunctiva are normal. Patient does have ecchymosis surrounding the left eye, from an old injury. ENT: Nares patent, oropharynx clear without exudates. Moist mucous membranes. NECK: Normal range of motion, supple without lymphadenopathy or JVD. LUNGS: Breath sounds clear to auscultation bilaterally and equal. No wheezes rales or rhonchi. HEART: Regular rate and rhythm without murmurs, rubs or gallops. ABDOMEN: Soft, nontender, normoactive bowel sounds. No guarding, no rebound. No masses appreciated. EXTREMITIES: Normal range of motion, no pitting or edema. No clubbing or cyanosis. NEUROLOGICAL: Cranial nerves II through XII grossly intact. PSYCH: Normal mood, normal affect. SKIN: Warm, Dry, normal turgor, no rashes or lesions noted. Limitations: altered mental status, physical limitation Course Vital Signs 08/21/19 17:16 Temperature 97.4 F L Pulse Rate 73 Respiratory 18 Rate O2 Sat by Pulse 97 Oximetry Medical Decision Making - Medical Decision Making Patient is an 88-year-old male presenting with an elevated WBC 5 days. Patient was sent in by Dr. Valdez's office for re-check. Patient has been on Keflex for 5 days. Patient is asymptomatic at this time. Patient's WBC went from 14, 5 days ago, to 17 yesterday. White count today is 13.1. Rest of labs are comparable to his normal. UA is unremarkable. Chest x-ray reveals new right sided upper and lower lobe pneumonia. Vital signs are stable at this point. Patient will be admitted for IV antibiotics. Patient was accepted by [facility]. Case discussed with Dr. Rice who agreed with this plan of care. - Lab Data Result diagrams: 08/21/19 17:35 08/21/19 17:35 Lab Results 08/21/19 08/21/19 08/21/19 Range/Units 17:35 17:35 17:45 WBC 13.1 H (3.8-10.6) k/uL RBC 4.56 (4.30-5.90) m/uL Hgb 12.9 L (13.0-17.5) gm/dL Hct 40.5 (39.0-53.0) % MCV 88.8 (80.0-100.0) fL MCH 28.3 (25.0-35.0) pg MCHC 31.8 (31.0-37.0) g/dL RDW 15.6 H (11.5-15.5) % Plt Count 218 (150-450) k/uL Neutrophils % 73 % Lymphocytes % 10 % Monocytes % 5 % Eosinophils % 9 % Basophils % 1 % Neutrophils # 9.5 H (1.3-7.7) k/uL Lymphocytes # 1.4 (1.0-4.8) k/uL Monocytes # 0.6 (0-1.0) k/uL Eosinophils # 1.1 H (0-0.7) k/uL Basophils # 0.1 (0-0.2) k/uL Sodium 139 (137-145) mmol/L Potassium 5.2 H (3.5-5.1) mmol/L Chloride 109 H (98-107) mmol/L Carbon Dioxide 22 (22-30) mmol/L Anion Gap 8 mmol/L BUN 30 H (9-20) mg/dL Creatinine 1.15 (0.66-1.25) mg/dL Est GFR (CKD-EPI)AfAm 66 (>60 ml/min/1.73 sqM) Est GFR (CKD-EPI)NonAf 57 (>60 ml/min/1.73 sqM) Glucose 104 H (74-99) mg/dL Calcium 8.5 (8.4-10.2) mg/dL Total Bilirubin 0.7 (0.2-1.3) mg/dL AST 12 L (17-59) U/L ALT 7 L (21-72) U/L Alkaline Phosphatase 143 H (38-126) U/L Total Protein 6.5 (6.3-8.2) g/dL Albumin 3.5 (3.5-5.0) g/dL Urine Color Light Yellow Urine Appearance Clear (Clear) Urine pH 5.0 (5.0-8.0) Ur Specific [place] 1.009 (1.001-1.035) Urine Protein Negative (Negative) Urine Glucose (UA) Negative (Negative) Urine Ketones Negative (Negative) Urine Blood Negative (Negative) Urine Nitrite Negative (Negative) Urine Bilirubin Negative (Negative) Urine Urobilinogen <2.0 (<2.0) mg/dL Ur Leukocyte Esterase Negative (Negative) Disposition Clinical Impression: Right upper lobe pneumonia, Right lower lobe pneumonia, Leukocytosis Disposition: ADMITTED IP TO THIS [facility] Condition: Stable Is patient prescribed a controlled substance at d/c from ED?: No Referrals: Tye Valdez MD [Primary Care Provider] - 1-2 days Decision Date: 08/21/19 Decision Time: 18:32
[2019-08-21 17:59] LABS: Basophils # (A) 0.1 k/uL (0-0.2); Basophils % (A) 1 %; Eosinophils # (A) 1.1 k/uL (0-0.7); Eosinophils % (A) 9 %; HCT 40.5 % (39.0-53.0); HGB 12.9 gm/dL (13.0-17.5); Lymphocytes # (A) 1.4 k/uL (1.0-4.8); Lymphocytes % (A) 10 %; MCH 28.3 pg (25.0-35.0); MCHC 31.8 g/dL (31.0-37.0); MCV 88.8 fL (80.0-100.0); Mean Platelet Volume 7.2; Monocytes # (A) 0.6 k/uL (0-1.0); Monocytes % (A) 5 %; Neutrophils # (A) 9.5 k/uL (1.3-7.7); Neutrophils % (A) 73 %; Platelet Count 218 k/uL (150-450); RBC 4.56 m/uL (4.30-5.90); RDW 15.6 % (11.5-15.5); WBC 13.1 k/uL (3.8-10.6)
[2019-08-21 18:00] LABS: Appearance,Urine Clear (Clear); Bilirubin,Urine Negative (Negative); Blood,Urine Negative (Negative); Color,Urine Light Yellow; Glucose,Urine (UA) Negative (Negative); Ketones,Urine Negative (Negative); Leukocyte Esterase,Urine Negative (Negative); Nitrite,Urine Negative (Negative); Protein,Urine Negative (Negative); Specific Gravity,Urine 1.009 (1.001-1.035); Urobilinogen,Urine <2.0 mg/dL (<2.0)
[2019-08-21 18:03] LABS: Albumin 3.5 g/dL (3.5-5.0); Calcium 8.5 mg/dL (8.4-10.2); Potassium 5.2 mmol/L (3.5-5.1); Total Bilirubin 0.7 mg/dL (0.2-1.3); Total Protein 6.5 g/dL (6.3-8.2)
--- NOTE | 2019-08-21 18:08 | XR ---
EXAMINATION TYPE: XR chest 2V DATE OF EXAM: 08/21/2019 COMPARISON: NONE HISTORY: Cough TECHNIQUE: Frontal and lateral views of the chest are obtained. FINDINGS: There is some patchy right upper lobe and right lower lobe airspace infiltrate. There is n o heart failure. There are sternal wires. Thoracic aorta is atheromatous. There is no pleural effusio n. IMPRESSION: Compared to old exam there is new right side pneumonia in the right upper lobe and right lower lobe. No heart failure seen. Atheromatous aorta.
[2019-08-21] MEDS ORDERED: NALOXONE 0.4 MG/ML 1 ML VIAL IV PRN (18:29)
[2019-08-21] MEDS ORDERED: ACETAMINOPHEN TAB 325 MG TAB PO PRN (18:29)
[2019-08-21] MEDS ORDERED: AZITHROMYCIN 500 MG in SODIUM CHLORIDE 0.9% 250 ML IVPB STA (18:33)
[2019-08-21] MEDS: SODIUM CHLORIDE 0.9% 1,000 ML IV SCH (18:53)
[2019-08-22] MEDS: ATORVASTATIN 20 MG TAB PO SCH ×2 (01:59→20:21)
[2019-08-22] MEDS: levETIRAcetam 500 MG TAB PO SCH ×3 (01:59→19:25)
[2019-08-22] MEDS: CARVEDILOL 3.125 MG TAB PO SCH ×3 (02:00→20:21)
[2019-08-22 07:34] LABS: Basophils # (A) 0.1 k/uL (0-0.2); Basophils % (A) 1 %; Eosinophils # (A) 1.7 k/uL (0-0.7); Eosinophils % (A) 12 %; HCT 39.6 % (39.0-53.0); HGB 12.7 gm/dL (13.0-17.5); Lymphocytes # (A) 1.6 k/uL (1.0-4.8); Lymphocytes % (A) 12 %; MCH 28.8 pg (25.0-35.0); MCHC 32.2 g/dL (31.0-37.0); MCV 89.5 fL (80.0-100.0); Mean Platelet Volume 7.5; Monocytes # (A) 0.6 k/uL (0-1.0); Monocytes % (A) 5 %; Neutrophils # (A) 9.5 k/uL (1.3-7.7); Neutrophils % (A) 68 %; Platelet Count 227 k/uL (150-450); RBC 4.42 m/uL (4.30-5.90); RDW 15.6 % (11.5-15.5); WBC 13.9 k/uL (3.8-10.6)
[2019-08-22] MEDS: HEPARIN SODIUM,PORCINE 5,000 UNIT/ML 1 ML VIAL SQ SCH ×2 (07:47→20:21)
[2019-08-22 07:53] LABS: Calcium 8.5 mg/dL (8.4-10.2); Potassium 5.2 mmol/L (3.5-5.1)
[2019-08-22] MEDS: IPRATROPIUM-ALBUTEROL 3 ML NEB INHALATION SCH ×4 (08:07→19:50)
[2019-08-22] MEDS ORDERED: FUROSEMIDE 10 MG/ML 4 ML VIAL IV SCH (10:45)
[2019-08-22] MEDS: FINASTERIDE 5 MG TAB PO SCH (11:11)
[2019-08-22] MEDS: DIGOXIN 125 MCG TAB PO SCH (11:11)
[2019-08-22] MEDS: ASPIRIN 81 MG PO SCH (11:11)
[2019-08-22] MEDS: SODIUM CHLORIDE 0.9% 1,000 ML IV SCH (11:12)
[2019-08-22] MEDS ORDERED: SPIRONOLACTONE 25 MG TAB PO SCH (12:00)
[2019-08-22] MEDS: CARBIDOPA-LEVODOPA 25-100 MG 1 EACH TAB PO SCH ×3 (12:44→21:09)
[2019-08-22] MEDS: TROSPIUM CHLORIDE 20 MG TABLET PO SCH ×2 (12:44→21:09)
[2019-08-22] MEDS ORDERED: HYDROcodone/APAP 5-325MG 1 EACH TAB PO PRN (13:59)
[2019-08-22] MEDS ORDERED: ALPRAZolam 0.25 MG TAB PO PRN (13:59)
[2019-08-22] MEDS ORDERED: FUROSEMIDE 40 MG TAB PO SCH (16:00)
--- NOTE | 2019-08-22 17:17 | HP ---
HISTORY AND PHYSICAL DATE OF SERVICE: 08/22/2019. CHIEF COMPLAINTS: Abnormal labs and feeling weak, cough. HISTORY OF PRESENT ILLNESS: This 88-year-old gentleman with past medical history of multiple medical problems including CAD, history of chest pain, history of CHF, history of GERD, hypertension, hyperlipidemia, myocardial infarction, history of DJD being followed by Dr. Valdez in the outpatient setting was previously admitted to the hospital in 2017 with shortness of breath and CHF exacerbation, ejection fraction 40-45 percent with possible ischemic cardiomyopathy. Patient had dopamine drip at that time. Currently the patient is complaining of some swelling of the right upper limb. Patient is receiving outpatient antibiotics in the form of Keflex. Because of not feeling better, the patient rechecked with primary physician again and the white count was found to be elevated and the patient was sent to [facility] Emergency Room for further evaluation and treatment. Chest x-ray showed evidence of possible pneumonia on the right side and possible CHF. The patient was admitted to the hospital for further evaluation and treatment. There is no history of fever, rigors or chills. No history of headache, loss of consciousness or seizures. No history of chest pain, palpitations, hematochezia or melena at this time. PAST MEDICAL HISTORY: History of congestive heart failure with chronic systolic dysfunction, ejection fraction 40-45 percent with ischemic cardiomyopathy, history of CAD, history of GERD, hypertension, hyperlipidemia, history of myocardial infarction, history of DJD, sleep apnea, cellulitis, CAD, CABG and stent. MEDICATIONS: Home medications prior to admission include: 1. Requip 3 mg p.o. q.h.s. and 2 mg q.a.m. 2. Keppra 500 mg p.o. b.i.d. 3. Sanctura XR 60 mg p.o. daily. 4. Aldactone 25 mg p.o. daily. 5. Klor-Con 10 mEq p.o. daily. 6. Prilosec 40 mg p.o. daily. 7. Neoprobe patch 1 patch at bedtime. 8. Indocin 25 mg t.i.d. p.r.n. 9. Lasix 40 mg p.o. b.i.d. 10.Finasteride 5 mg p.o. daily. 11.Colace 100 mg p.o. b.i.d. 12.Lanoxin 125 mcg p.o. q.48h hours. 13.Keflex 500 mg q.6h. 14.Coreg 3.125 mg p.o. b.i.d. 15.Sinemet 25/100 one p.o. q.i.d. 16.Lipitor 80 mg q.a.m., 20 mg q.h.s. 17.Aspirin 81 mg p.o. daily. ALLERGIES: None. FAMILY HISTORY: Family history of chest pain. History of CHF, CAD, hypertension, history of myocardial infarction. History of prostate disorder. SOCIAL HISTORY: No history of smoking. No alcohol intake. REVIEW OF SYSTEMS: ENT diminished vision. Diminished hearing. CARDIOVASCULAR system: S1, S2 muffled. RESPIRATORY: As mentioned earlier. GI no nausea or vomiting. as mentioned earlier. NERVOUS SYSTEM as mentioned earlier. ALLERGY/IMMUNOLOGY: No asthma or hayfever. MUSCULOSKELETAL: As mentioned earlier. HEMATOLOGY/ONCOLOGY: No history of anemia. ENDOCRINE as mentioned earlier. CONSTITUTIONAL: As mentioned earlier. NEUROLOGY as mentioned earlier. RHEUMATOLOGY: Negative. DERMATOLOGY negative. PSYCHIATRY as mentioned earlier. PHYSICAL EXAMINATION: Alert and oriented x2. Pulse is 66. Blood pressure is 115/65, respirations 17, temperature is 97.6, pulse ox 94% on room air. HEENT: Conjunctivae normal. Oral mucosa moist. Neck is jugular venous distention in the root of the neck. Cardiovascular system: S1, S2 muffled. No S3, no S4. Ejection systolic murmur. RESPIRATIONS: Breath sounds diminished in the bases. A few scattered rhonchi and crackles, especially in the right more than the left. ABDOMEN: Soft, nontender. No mass palpable. LEGS: No edema. No swelling. NERVOUS SYSTEM: Higher functions as mentioned earlier. Moves all 4 limbs. No focal motor or sensory deficit. LYMPHATICS: No lymph nodes palpable in the neck, axillae or groin. SKIN: No ulcers, no rashes and no bleeding. JOINTS: No active deforming arthropathy. LABS: At this time shows: WBC 13.9, hemoglobin 12.7, and sodium 139, potassium 5.2, BUN is 25, creatinine is 1.02. UA noted. Chest x-ray reviewed personally. ASSESSMENT: 1. Possible right-sided pneumonia possibly community-acquired, with failure of outpatient treatment. 2. Congestive heart failure with history of chronic systolic dysfunction, ejection fraction 40-45 percent with chronic systolic dysfunction with ischemic cardiomyopathy history. 3. History of coronary artery disease, coronary artery bypass grafting, stent. 4. History of congestive heart failure. 5. Gastroesophageal reflux disease. 6. Hypertension. 7. Hyperlipidemia. 8. History of myocardial infarction. 9. History of degenerative joint disease. 10.History of prostate disorder. 11.History of sleep apnea. 12.History of cellulitis. 13.History of sliding hiatal hernia. 14.History of gastritis. 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 16.History of chronic kidney disease stage III. 17.History of colonic polyps. 18.History of mild aneurysmal dilatation of the ascending aorta. 19.History of Parkinson's. 20.Gait dysfunction. 21.History of peptic ulcers. 22.Mild hyperkalemia. 23.FULL CODE. RECOMMENDATIONS AND DISCUSSION: In this 88-year-old gentleman who presented with multiple complex medical issues, we will monitor the patient closely. Continue the current medications, management and symptomatic treatment. We will initiate empiric antibiotics for the presumed pneumonia and we will obtain the cultures. Obtain pulmonary and as well as Cardiology consultations. We will continue to monitor. We will continue to monitor the renal functions as well as the white count. As mentioned, cultures will be obtained. Resume the home medications. The prognosis guarded because of multiple complex medical issues. A copy of dictation being forwarded to Dr. Valdez who is the primary physician. We will hold the potassium at this time and NSAIDS also. MMODL / IJN: [id number] /
--- NOTE | 2019-08-22 20:01 | CONS ---
CONSULTATION Mr. Tono Lester is an 88-year-old elderly gentleman with a known history of aortic stenosis, severe CAD, previous bypass surgery, known history of heart failure. This gentleman came into the hospital with what seems to be possible pneumonia. I was asked to see him to see if there is any associated heart failure as well. He is known to have hypertension, hyperlipidemia, aortic stenosis, recurrent falls and past history of some subdural hematoma. The patient is not a very good historian, does not communicate very well and does not give main information but certainly denies that he has chest pain and he is resting comfortably. Patient apparently was sent by his doctor's office because of increased white count and there was some inflammation of the right hand. He also complained of some shortness of breath. PAST MEDICAL HISTORY: This is remarkable for CAD with a previous bypass surgery, moderate to severe aortic stenosis, known history of percutaneous coronary intervention. He also has history of Parkinson's, hypertension, hyperlipidemia, sleep apnea, wears a CPAP. He also has history of some joint replacements. MEDICATIONS: At home include aspirin 81 mg daily, Sinemet 25/100. He also takes Aldactone 25 mg daily, Keppra 500 mg b.i.d., omeprazole, carvedilol 3.125 mg b.i.d., digoxin 125 mcg daily, Lasix 40 mg b.i.d., atorvastatin 20 mg daily. ALLERGIES: No known drug allergies. On reviewing the old chart it appears that this patient has a known diagnosis of aortic stenosis that was diagnosed in September 2016 but he did not wish to have any intervention performed and the same opinion seems to be at this time also. LABORATORY DATA: Suggests that his potassium is 5.2. Renal function is normal and hemoglobin is 12.7. BNP is 5700. PHYSICAL EXAMINATION: Blood pressure is 118/70, pulse rate is about 70 per minute HEENT unremarkable. Fundus was not examined by me. NECK: Supple. There is JVD of 1 cm. There is no carotid bruit. Heart exam reveals S1, S2 with ejection systolic murmur at the base. Second heart sound is not well heard. Lungs reveal diminished air entry over both bases. Abdomen is soft. Lower extremities reveal mild edema, diminished pulses. Central nervous system grossly no focal deficits but patient seems to be poorly oriented and somewhat lethargic. EKG is pending. IMPRESSION: 1. Exacerbation of mild heart failure secondary to aortic valve stenosis and a combination of systolic and probably some diastolic heart function as well. 2. Pulmonary hypertension. 3. Probable pneumonia on the right side. 4. History of known coronary artery disease and prior bypass surgery. 5. Moderate to severe aortic stenosis. RECOMMENDATION: I am recommending an EKG and echocardiogram. We will give him intravenous Lasix cautiously. Discontinue Aldactone because of hyperkalemia and check a BNP level. I discussed my thoughts in detail with the patient. Thank you very much for the consult. MMMADHU / IJN: [id number] /
[2019-08-22] MEDS: DOCUSATE 100 MG CAP PO SCH (20:21)
[2019-08-22] MEDS: AZITHROMYCIN 500 MG in SODIUM CHLORIDE 0.9% 250 ML IVPB SCH (21:09)
[2019-08-22] MEDS: FUROSEMIDE 10 MG/ML 4 ML VIAL IV SCH (23:29)
[2019-08-23] MEDS: SODIUM CHLORIDE 0.9% 1,000 ML IV SCH (06:04)
[2019-08-23] MEDS: IPRATROPIUM-ALBUTEROL 3 ML NEB INHALATION SCH ×4 (07:41→19:53)
[2019-08-23] MEDS: DOCUSATE 100 MG CAP PO SCH ×2 (07:43→21:41)
[2019-08-23] MEDS: TROSPIUM CHLORIDE 20 MG TABLET PO SCH ×2 (07:43→21:41)
[2019-08-23] MEDS: PANTOPRAZOLE 40 MG TABLET PO SCH (07:43)
[2019-08-23] MEDS: CARBIDOPA-LEVODOPA 25-100 MG 1 EACH TAB PO SCH ×4 (07:43→21:41)
[2019-08-23] MEDS: ASPIRIN 81 MG PO SCH (07:43)
[2019-08-23] MEDS: FUROSEMIDE 10 MG/ML 4 ML VIAL IV SCH (07:44)
[2019-08-23] MEDS: HEPARIN SODIUM,PORCINE 5,000 UNIT/ML 1 ML VIAL SQ SCH ×2 (07:44→21:41)
[2019-08-23] MEDS: CARVEDILOL 3.125 MG TAB PO SCH ×2 (07:44→21:40)
[2019-08-23 07:58] LABS: Basophils # (A) 0.1 k/uL (0-0.2); Basophils % (A) 1 %; Eosinophils # (A) 0.6 k/uL (0-0.7); Eosinophils % (A) 5 %; HGB 13.6 gm/dL (13.0-17.5); Lymphocytes # (A) 1.5 k/uL (1.0-4.8); Lymphocytes % (A) 12 %; MCH 28.8 pg (25.0-35.0); MCHC 32.3 g/dL (31.0-37.0); MCV 89.1 fL (80.0-100.0); Mean Platelet Volume 6.8; Monocytes # (A) 0.7 k/uL (0-1.0); Monocytes % (A) 6 %; Neutrophils # (A) 8.9 k/uL (1.3-7.7); Neutrophils % (A) 74 %; Platelet Count 242 k/uL (150-450); RBC 4.71 m/uL (4.30-5.90); RDW 15.4 % (11.5-15.5)
[2019-08-23 08:09] LABS: Calcium 8.9 mg/dL (8.4-10.2); Potassium 4.8 mmol/L (3.5-5.1)
--- NOTE | 2019-08-23 08:47 | P.CNPUL ---
History of Present Illness Consult date: 08/22/19 Reason for consult: dyspnea, cough, pneumonia Chief complaint: Shortness of breath and cough History of present illness: This is a pleasant 88-year-old male with significant prior medical history of coronary artery disease hypertension hypertensive cardiovascular disease prior history of [place] he sees Dr. Og for primary care activity, patient presented into the hospital with pneumonia, patient has been found to have elevated WBC count in primary care's office chest x-ray performed in the emergency department shows developing a right-sided pneumonia patient has chronic systolic failure ejection fraction baseline of 40% he is being admitted into the hospital for broad-spectrum antibiotics cardiovascular service is also following this patient Review of Systems All systems: negative Past Medical History Past Medical History: Coronary Artery Disease (CAD), Chest Pain / Angina, Heart Failure, GERD/Reflux, Hyperlipidemia, Hypertension, Myocardial Infarction (AL), Musculoskeletal Disorder, Neurologic Disorder, Osteoarthritis (OA), Prostate Disorder, Renal Disease, Sleep Apnea/CPAP/BIPAP Additional Past Medical History / Comment(s): cellulitis scalp. Other hx: Sliding hiatal hernia, mild gastritis, subarachnoid brain bleed with L arm weakness/slurred speech and a little L leg weakness, CKD stage III, chronic anemia, colonic polyp (right colon), obesity, mild aneurysmal dilatation of the ascending aorta, PARKINSONS, CPAP MACHINE (does not use), PEPTIC ULCERS-past bleed,diverticulosis, BPH, UTI, FALLS (15 FELL OFF LADDER-HEAD INJURY AND FX LT COLLAR BONE -NO SX. Last Myocardial Infarction Date:: 2011 History of Any Multi-Drug Resistant Organisms: None Reported Past Surgical History: Coronary Bypass/CABG, Heart Catheterization, Heart Catheterization With Stent, Joint Replacement, Tonsillectomy Additional Past Surgical History / Comment(s): 2 VESSEL CABG 30 YRS AGO, bilateral knee replacements, stents placed 2011, ERENDIRA shoulder ARTHROTOMY, FINGER SX, EGD/COLONOSCOPY,RT FOOT SX. Past Anesthesia/Blood Transfusion Reactions: No Reported Reaction Additional Past Anesthesia/Blood Transfusion Reaction / Comment(s): Pt takes a long time waking up after general anesthesia. HAD BLOOD TRANSFUSION-NO REACTION TO IT. Date of Last Stent Placement:: 2011 Past Psychological History: No Psychological Hx Reported Additional Psychological History / Comment(s): Pt lives with his in their home. Pt is independent normally. He uses a walker to ambulate. Smoking Status: Never smoker Past Alcohol Use History: Occasional Additional Past Alcohol Use History / Comment(s): CHEWED TOBACCO SINCE AGE 19, rarely Past Drug Use History: None Reported - Past Family History Father Family Medical History: Cancer, Chest Pain / Angina, Congestive Heart Failure (CHF), Coronary Artery Disease (CAD), Hypertension, Myocardial Infarction (AL) Additional Family Medical History / Comment(s): Prostate issues Mother Additional Family Medical History / Comment(s): hit by a car causing Medications and Allergies Home Medications Medication Instructions Recorded Confirmed Type Aspirin 81 mg PO DAILY 03/19/14 08/21/19 History Carbidopa-Levodopa 25-100 mg 1 tab PO QID 03/19/14 08/21/19 History [Sinemet 25-100 mg] Finasteride 5 mg PO DAILY@1200 03/19/14 08/21/19 History rOPINIRole HCL [Requip] 2 mg PO QAM 03/19/14 08/21/19 History Spironolactone [Aldactone] 25 mg PO DAILY@1200 12/28/16 08/21/19 History levETIRAcetam [Keppra] 500 mg PO BID@1199,199912/28/16 08/21/19 History rOPINIRole HCL [Requip] 3 mg PO HS@199912/28/16 08/21/19 History Omeprazole [PriLOSEC] 40 mg PO DAILY 02/06/17 08/21/19 History Potassium Chloride [Klor-Con 10] 10 meq PO DAILY@1600 02/06/17 08/21/19 History Trospium Chloride [Sanctura XR] 60 mg PO DAILY 02/06/17 08/21/19 History Carvedilol [Coreg] 3.125 mg PO BID 07/03/18 08/21/19 History Docusate [Colace] 100 mg PO BID 07/03/18 08/21/19 History Digoxin [Lanoxin] 125 mcg PO Q48H 05/07/19 08/21/19 History Furosemide [Lasix] 40 mg PO BID@0800,1600 05/07/19 08/21/19 History Cephalexin [Keflex] 500 mg PO Q6HR #28 cap 08/16/19 08/21/19 Rx Indomethacin [Indocin] 25 mg PO TID PRN #21 capsule 08/16/19 08/21/19 Rx Neopro Patch 2mg 1 patch TOPICAL HS 08/16/19 08/21/19 History Atorvastatin [Lipitor] 20 mg PO HS 08/21/19 08/21/19 History Allergies Allergy/AdvReac Type Severity Reaction Status Date / Time No Known Allergies Allergy Verified 08/21/19 18:42 Physical Exam Vitals: Vital Signs Temp Pulse Pulse Resp BP BP Pulse Ox 08/22/19 23:27 76 109/68 08/22/19 21:19 69 100/61 88/68 08/22/19 20:15 97.5 F L 79 18 89/53 99 08/22/19 20:02 60 08/22/19 19:50 60 08/22/19 15:48 70 08/22/19 15:37 68 08/22/19 14:49 97.8 F 68 16 116/66 96 08/22/19 11:21 72 08/22/19 11:09 70 08/22/19 08:21 68 08/22/19 08:11 66 08/22/19 05:04 97.6 F 69 17 115/65 94 L Intake and Output 08/22/19 08/22/19 08/23/19 14:59 22:59 05:59 Intake Total 320 300 Balance 320 300 Intake: Oral 320 300 Other: Voiding Method Toilet Incontinent # Voids 4 2 - Constitutional General appearance: average body habitus, cooperative, disheveled, mild distress - EENT Eyes: anicteric sclerae, EOMI, PERRLA, dentition normal, poor dentition, normal appearance ENT: normal oropharynx Ears: bilateral: normal - Neck Carotids: bilateral: upstroke normal Thyroid: bilateral: normal size - Respiratory Respiratory: bilateral: diminished, negative: CTA, dullness, rales, rhonchi, wheezing, prolonged expiration, prolonged inspiration - Cardiovascular Rhythm: regular Heart sounds: normal: S1, S2 - Gastrointestinal General gastrointestinal: decreased bowel sounds, soft - Integumentary Integumentary: decreased turgor, normal - Neurologic Neurologic: CNII-XII intact - Musculoskeletal Musculoskeletal: gait normal, generalized weakness, strength equal bilaterally - Psychiatric Psychiatric: A&O x's 3, appropriate affect, intact judgment & insight Results - Laboratory Findings CBC and BMP: 08/23/19 07:27 08/23/19 07:27 Abnormal lab findings: Abnormal Labs 08/21/19 08/21/19 08/22/19 17:35 17:35 07:17 WBC 13.1 H 13.9 H Hgb 12.9 L 12.7 L RDW 15.6 H 15.6 H Neutrophils # 9.5 H 9.5 H Eosinophils # 1.1 H 1.7 H Potassium 5.2 H Chloride 109 H BUN 30 H Glucose 104 H AST 12 L ALT 7 L Alkaline Phosphatase 143 H 08/22/19 07:17 WBC Hgb RDW Neutrophils # Eosinophils # Potassium 5.2 H Chloride 109 H BUN 25 H Glucose AST ALT Alkaline Phosphatase - Diagnostic Findings Chest x-ray: report reviewed, image reviewed (Right lower and upper lobe pneumonia) Assessment and Plan Assessment: Right-sided pneumonia Congestive heart failure acute on chronic systolic heart failure with baseline ejection fraction of 40% Ischemic cardiomyopathy Coronary artery disease and history of prior CABG Hypertension hypertensive cardiovascular disease Dyslipidemia Sleep disorder breathing and sleep apnea BPH Advanced Parkinson's disease Unstable gait due to Parkinson's disease Plan: Broad-spectrum antibiotics Breathing treatments Follow-up on cultures Continue home medications DVT and peptic ulcer disease prophylaxis Optimize therapy for chronic systolic heart failure Time with Patient: Greater than 30
--- NOTE | 2019-08-23 08:50 | P.PN ---
Subjective Progress Note Date: 08/23/19 Principal diagnosis: Right-sided pneumonia involving upper lobe and lower lobe Congestive heart failure acute on chronic systolic heart failure with baseline ejection fraction of 40% Ischemic cardiomyopathy Coronary artery disease and history of prior CABG Hypertension hypertensive cardiovascular disease Dyslipidemia Sleep disorder breathing and sleep apnea BPH Advanced Parkinson's disease Unstable gait due to Parkinson's disease 08/23/2019, patient up on bed sitting upright breathing is stable care plan discussed with the staff at length denies any cough or congestion. Production, patient just received breathing treatments no specific complains of present This is a pleasant 88-year-old male with significant prior medical history of coronary artery disease hypertension hypertensive cardiovascular disease prior history of [place] he sees Dr. Og for primary care activity, patient presented into the hospital with pneumonia, patient has been found to have elevated WBC count in primary care's office chest x-ray performed in the emergency department shows developing a right-sided pneumonia patient has chronic systolic failure ejection fraction baseline of 40% he is being admitted into the hospital for broad-spectrum antibiotics cardiovascular service is also following this patient Objective - Vital Signs Vital signs: Vital Signs Temp 97.6 F 08/23/19 05:00 Pulse 88 08/23/19 07:54 Resp 20 08/23/19 05:00 BP 115/76 08/23/19 05:00 Pulse Ox 92 L 08/23/19 05:00 Intake & Output 08/22/19 08/23/19 08/23/19 19:59 06:59 18:59 Intake Total Output Total Balance Weight Intake: Oral Output: Urine Other: Voiding Method # Voids - Exam - Constitutional General appearance: average body habitus, cooperative, disheveled, mild distress - EENT Eyes: anicteric sclerae, EOMI, PERRLA, dentition normal, poor dentition, normal appearance ENT: normal oropharynx Ears: bilateral: normal - Neck Carotids: bilateral: upstroke normal Thyroid: bilateral: normal size - Respiratory Respiratory: bilateral: diminished, negative: CTA, dullness, rales, rhonchi, wheezing, prolonged expiration, prolonged inspiration - Cardiovascular Rhythm: regular Heart sounds: normal: S1, S2 - Gastrointestinal General gastrointestinal: decreased bowel sounds, soft - Integumentary Integumentary: decreased turgor, normal - Neurologic Neurologic: CNII-XII intact - Musculoskeletal Musculoskeletal: gait normal, generalized weakness, strength equal bilaterally - Psychiatric Psychiatric: A&O x's 3, appropriate affect, intact judgment & insight - Labs CBC & Chem 7: 08/23/19 07:27 08/23/19 07:27 Labs: Abnormal Lab Results - Last 24 Hours (Table) 08/23/19 08/23/19 Range/Units 07:27 07:27 WBC 12.0 H (3.8-10.6) k/uL Neutrophils # 8.9 H (1.3-7.7) k/uL BUN 24 H (9-20) mg/dL Assessment and Plan Assessment: Right-sided pneumonia involving right upper and lower lobe Congestive heart failure acute on chronic systolic heart failure with baseline ejection fraction of 40% Ischemic cardiomyopathy Coronary artery disease and history of prior CABG Hypertension hypertensive cardiovascular disease Dyslipidemia Sleep disorder breathing and sleep apnea BPH Advanced Parkinson's disease Unstable gait due to Parkinson's disease Plan: Broad-spectrum antibiotics Breathing treatments Follow-up on cultures Continue home medications DVT and peptic ulcer disease prophylaxis Optimize therapy for chronic systolic heart failure Time with Patient: Greater than 30
[2019-08-23] MEDS: levETIRAcetam 500 MG TAB PO SCH ×2 (11:50→21:40)
[2019-08-23] MEDS: FINASTERIDE 5 MG TAB PO SCH (11:50)
[2019-08-23] MEDS: MULTIVITAMINS, THERA 1 EACH TAB PO SCH (11:50)
--- NOTE | 2019-08-23 21:24 | PN ---
PROGRESS NOTE DATE OF SERVICE: 08/23/2019 This 88-year-old gentleman who was admitted with possible right-sided pneumonia is being closely monitored at this time. The patient is also mildly confused at this time. Pulmonary Dr. Seals is also following the patient closely. The patient also had suspected to have some CHF also. PAST MEDICAL HISTORY: Reviewed. REVIEW OF SYSTEMS: Could not be taken, the patient is confused. MEDICATIONS: Current medications reviewed and include: 1. Tylenol p.r.n. 2. [place] 5 mg q.6h p.r.n. 3. DuoNeb q.i.d. and p.r.n. 4. Aspirin. 5. Lipitor. 6. Zithromax 500 mg daily. 7. Sinemet. 8. Coreg. 9. Rocephin 1 g daily. 10.Lanoxin. 11.Proscar. 12.Lasix 40 IV q.8h. 13.Keppra. 14.Multivitamins. 15.Narcan. 16.Requip. 17.Sanctura. PHYSICAL EXAM: Patient is alert, oriented x1. Pulse 64. Blood pressure 91/60. Respirations 16. Temperature normal. Pulse ox 98% on room air. HEENT are normal. Conjunctivae pink. Oral mucosa moist. Neck is no jugular venous distention. No carotid bruit. No lymph node enlargement. Cardiovascular: S1, S2 muffled. Respiration: Breath sounds diminished in the bases. A few scattered rhonchi and crackles. ABDOMEN: Soft, nontender. Legs are no edema. No swelling. CENTRAL NERVOUS SYSTEM: No focal deficits. LABS: WBC 12, hemoglobin 13.6. ASSESSMENT: 1. Right-sided pneumonia, possibly community-acquired, with failure of outpatient treatment. 2. Congestive heart failure, acute exacerbation with acute on chronic systolic dysfunction, ejection fraction 40-45 percent with possibly ischemic cardiomyopathy. 3. History of coronary artery disease, coronary artery bypass grafting/stent. 4. History of congestive heart failure. 5. Gastroesophageal reflux disease. 6. Hypertension. 7. Hyperlipidemia. 8. Change in mental status, metabolic encephalopathy, acute on chronic. 9. History of myocardial infarction. 10.History of degenerative joint disease. 11.History of prostate disorder. 12.History of sleep apnea. 13.History of cellulitis. 14.History of sliding hiatal hernia. 15.History of gastritis. 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 17.Chronic kidney disease stage III. 18.Colonic polyps. 19.History of mild aneurysmal dilatation of the ascending aorta. 20.History of Parkinson's. 21.Gait dysfunction. 22.History of peptic ulcers. 23.Mild hyperkalemia. 24.FULL CODE. RECOMMENDATIONS AND DISCUSSION: Recommend to continue current medications. Continue to monitor. Symptomatic treatment. Otherwise, at this time, I would recommend continue with continue with antibiotics. I would also recommend change the Lasix as listed. We will continue to monitor. The 2D echo has been ordered. Guarded prognosis because of multiple complex medical issues. Further recommendations to follow. Cardiology is following the patient closely. MMODL / IJN: [id number] /
[2019-08-23] MEDS: AZITHROMYCIN 500 MG in SODIUM CHLORIDE 0.9% 250 ML IVPB SCH (21:41)
[2019-08-23] MEDS: ATORVASTATIN 20 MG TAB PO SCH (21:41)
[2019-08-24] MEDS: FUROSEMIDE 40 MG TAB PO SCH ×2 (07:41→16:17)
[2019-08-24] MEDS: CARVEDILOL 3.125 MG TAB PO SCH ×2 (07:41→22:01)
[2019-08-24] MEDS: TROSPIUM CHLORIDE 20 MG TABLET PO SCH ×2 (07:41→22:02)
[2019-08-24] MEDS: CARBIDOPA-LEVODOPA 25-100 MG 1 EACH TAB PO SCH ×4 (07:41→22:00)
[2019-08-24] MEDS: PANTOPRAZOLE 40 MG TABLET PO SCH (07:42)
[2019-08-24] MEDS: ASPIRIN 81 MG PO SCH (07:42)
[2019-08-24] MEDS: DIGOXIN 125 MCG TAB PO SCH (07:42)
[2019-08-24] MEDS: HEPARIN SODIUM,PORCINE 5,000 UNIT/ML 1 ML VIAL SQ SCH ×2 (07:42→22:01)
[2019-08-24] MEDS: DOCUSATE 100 MG CAP PO SCH ×2 (07:43→22:00)
[2019-08-24] MEDS: IPRATROPIUM-ALBUTEROL 3 ML NEB INHALATION SCH ×4 (08:12→19:28)
[2019-08-24 09:04] LABS: Basophils # (A) 0.1 k/uL (0-0.2); Basophils % (A) 1 %; Eosinophils # (A) 0.8 k/uL (0-0.7); Eosinophils % (A) 7 %; HCT 42.4 % (39.0-53.0); HGB 13.8 gm/dL (13.0-17.5); Hypochromasia Slight; Lymphocytes # (A) 1.7 k/uL (1.0-4.8); Lymphocytes % (A) 16 %; MCH 29.2 pg (25.0-35.0); MCHC 32.6 g/dL (31.0-37.0); MCV 89.7 fL (80.0-100.0); Mean Platelet Volume 6.7; Monocytes # (A) 0.7 k/uL (0-1.0); Monocytes % (A) 6 %; Neutrophils # (A) 7.5 k/uL (1.3-7.7); Neutrophils % (A) 68 %; Platelet Count 234 k/uL (150-450); RBC 4.73 m/uL (4.30-5.90); RDW 15.3 % (11.5-15.5); WBC 11.1 k/uL (3.8-10.6)
[2019-08-24 09:20] LABS: Calcium 8.8 mg/dL (8.4-10.2); Potassium 4.5 mmol/L (3.5-5.1)
--- NOTE | 2019-08-24 10:09 | XR ---
EXAMINATION TYPE: XR chest 1V portable DATE OF EXAM: 08/24/2019 COMPARISON: 08/21/2019 HISTORY: Cough TECHNIQUE: Single frontal view of the chest is obtained. FINDINGS: Postsurgical change and atherosclerotic change aorta. Patchy bilateral infiltrates are sta ble. No pneumothorax. Arthropathy of the shoulders with postsurgical change on the right. IMPRESSION: Stable bilateral patchy areas of infiltrate.
--- NOTE | 2019-08-24 11:42 | P.PN ---
Subjective Progress Note Date: 08/24/19 Principal diagnosis: Right-sided pneumonia involving upper lobe and lower lobe Congestive heart failure acute on chronic systolic heart failure with baseline ejection fraction of 40% Ischemic cardiomyopathy Coronary artery disease and history of prior CABG Hypertension hypertensive cardiovascular disease Dyslipidemia Sleep disorder breathing and sleep apnea BPH Advanced Parkinson's disease Unstable gait due to Parkinson's disease 08/24/2019, patient seen eval examined during the rounds labs reviewed medications reviewed patient is undergoing physical therapy and rehab, off of oxygen currently on room air, no specific complains of present besides complaining of generalized weakness 08/23/2019, patient up on bed sitting upright breathing is stable care plan dis cussed with the staff at length denies any cough or congestion. Production, patient just received breathing treatments no specific complains of present This is a pleasant 88-year-old male with significant prior medical history of coronary artery disease hypertension hypertensive cardiovascular disease prior history of [place] he sees Dr. Og for primary care activity, patient presented into the hospital with pneumonia, patient has been found to have elevated WBC count in primary care's office chest x-ray performed in the emergency department shows developing a right-sided pneumonia patient has chronic systolic failure ejection fraction baseline of 40% he is being admitted into the hospital for broad-spectrum antibiotics cardiovascular service is also following this patient Objective - Vital Signs Vital signs: Vital Signs Temp 97.4 F L 08/24/19 04:45 Pulse 80 08/24/19 11:36 Resp 20 08/24/19 08:00 BP 126/82 08/24/19 04:45 Pulse Ox 98 08/24/19 04:45 Intake & Output 08/23/19 08/24/19 08/24/19 18:59 06:59 18:59 Intake Total 200 300 Output Total 550 150 Balance -350 300 -150 Weight 75 kg Intake: Oral 200 300 Output: Urine 550 150 Other: Voiding Method Toilet Urinal Incontinent # Voids 2 - Exam - Constitutional General appearance: average body habitus, cooperative, disheveled, mild distress - EENT Eyes: anicteric sclerae, EOMI, PERRLA, dentition normal, poor dentition, normal appearance ENT: normal oropharynx Ears: bilateral: normal - Neck Carotids: bilateral: upstroke normal Thyroid: bilateral: normal size - Respiratory Respiratory: bilateral: diminished, negative: CTA, dullness, rales, rhonchi, wheezing, prolonged expiration, prolonged inspiration - Cardiovascular Rhythm: regular Heart sounds: normal: S1, S2 - Gastrointestinal General gastrointestinal: decreased bowel sounds, soft - Integumentary Integumentary: decreased turgor, normal - Neurologic Neurologic: CNII-XII intact - Musculoskeletal Musculoskeletal: gait normal, generalized weakness, strength equal bilaterally - Psychiatric Psychiatric: A&O x's 3, appropriate affect, intact judgment & insight - Labs CBC & Chem 7: 08/24/19 07:55 08/24/19 07:55 Labs: Abnormal Lab Results - Last 24 Hours (Table) 08/24/19 08/24/19 Range/Units 07:55 07:55 WBC 11.1 H (3.8-10.6) k/uL Eosinophils # 0.8 H (0-0.7) k/uL BUN 26 H (9-20) mg/dL Microbiology - Last 24 Hours (Table) 08/22/19 15:03 Blood Culture - Preliminary Blood No Growth after 24 hours Assessment and Plan Assessment: Right-sided pneumonia involving right upper and lower lobe Congestive heart failure acute on chronic systolic heart failure with baseline ejection fraction of 40% Ischemic cardiomyopathy Coronary artery disease and history of prior CABG Hypertension hypertensive cardiovascular disease Dyslipidemia Sleep disorder breathing and sleep apnea BPH Advanced Parkinson's disease Unstable gait due to Parkinson's disease Plan: Broad-spectrum antibiotics, and can be changed to oral at the time of discharge Breathing treatments Follow-up on cultures Continue home medications DVT and peptic ulcer disease prophylaxis Optimize therapy for chronic systolic heart failure Time with Patient: Greater than 30
--- NOTE | 2019-08-24 11:58 | ECHOF ---
Referral Reason:LVF MEASUREMENTS -------- HEIGHT: 182.9 cm WEIGHT: 77.1 kg BP: RVIDd: 4.7 cm (< 3.3) IVSd: 1.7 cm (0.6 - 1.1) LVIDd: 4.9 cm (3.9 - 5.3) LVPWd: 1.6 cm (0.6 - 1.1) IVSs: 2.0 cm LVIDs: 4.4 cm LVPWs: 1.6 cm LAESV Index (A-L): 50.97 ml/m Ao Diam: 3.9 cm (2.0 - 3.7) AV Cusp: 1.2 cm (1.5 - 2.6) AV maxP.61 mmHg AV meanP.39 mmHg RAP: 5.00 mmHg RVSP: 42.51 mmHg FINDINGS -------- Atrial fibrillation. This was a technically difficult study with suboptimal apical views. The left ventricular size is normal. There is moderate concentric left ventricular hypertrophy. O verall left ventricular systolic function is moderately impaired with, an EF between 35 - 40 %. Lef t ventricular fillimg pressure cannot be estimated due to Atrial fibrillation. Anterseptal Hypokine sis Atypical septal wall motion Posterior hypokinesis The right ventricle is severely enlarged. LA is severely dilated >40 ml/m2 The right atrium is mildly enlarged. Lumason used Interatrial and interventricular septum intact. There is no evidence of aortic regurgitation. There is severe aortic stenosis present. Peak/mean gradient across the Aortic Valve is 68.61mmHg / 44.39mmHg. Moderate mitral annular calcification present. There is trace mitral regurgitation. Mild tricuspid regurgitation present. There is mild pulmonary hypertension. The right ventricular systolic pressure, as measured by Doppler, is 42.51mmHg. There is no pulmonic regurgitation present. The aortic root size is normal. IVC Not well visulized. There is no pericardial effusion. CONCLUSIONS -------- 1. Atrial fibrillation. 2. This was a technically difficult study with suboptimal apical views. 3. The left ventricular size is normal. 4. There is moderate concentric left ventricular hypertrophy. 5. Left ventricular fillimg pressure cannot be estimated due to Atrial fibrillation. 6. Anterseptal Hypokinesis 7. Atypical septal wall motion 8. Posterior hypokinesis 9. The right ventricle is severely enlarged. 10. LA is severely dilated >40 ml/m2 11. The right atrium is mildly enlarged. 12. Lumason used 13. Interatrial and interventricular septum intact. 14. There is no evidence of aortic regurgitation. 15. There is severe aortic stenosis present. 16. Peak/mean gradient across the Aortic Valve is 68.61mmHg / 44.39mmHg. 17. Moderate mitral annular calcification present. 18. There is trace mitral regurgitation. 19. Mild tricuspid regurgitation present. 20. There is mild pulmonary hypertension. 21. The right ventricular systolic pressure, as measured by Doppler, is 42.51mmHg. 22. There is no pulmonic regurgitation present. 23. The aortic root size is normal. 24. IVC Not well visulized. 25. There is no pericardial effusion. WEAVING SUPERVISOR: Krystal Puri RDCS
[2019-08-24] MEDS: MULTIVITAMINS, THERA 1 EACH TAB PO SCH (12:53)
[2019-08-24] MEDS: levETIRAcetam 500 MG TAB PO SCH ×2 (12:53→22:02)
[2019-08-24] MEDS: FINASTERIDE 5 MG TAB PO SCH (12:53)
--- NOTE | 2019-08-24 12:58 | CDI ---
Documentation Clarification Form Date: 08/24/2019 12:49:53 PM From: Xiomara Maurer CCS, CCDS Admit Date: 08/21/2019 6:18:00 PM Patient Name: Tono Lester Visit Number: [id number] Discharge Date: ATTENTION: The Clinical Documentation Specialists (CDI) and [facility] Coding Staff appreciate your assistance in clarifying documentation. Please respond to the clarification below the line at the bottom and electronically sign. The CDI & [facility] Coding staff will review the response and follow-up if needed. Please note: Queries are made part of the Legal Health Record. If you have any questions, please contact the author of this message via ITS. Dr. Katya Strickland: A diagnosis of anemia lacks specificity to accurately reflect your patients severity of condition and clarification is needed. Per the ED note: chronic anemia is documented. Per the History & Physical: No history of anemia. 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 Clinical indicators: Presented from physician office with abnormal labs: WBC elevated. Also found to be in acute exacerbation of systolic CHF. Hemoglobin: 12.9* - 12.8* - (13.6) - (13.8)* Hematocrit: (40.5) - (39.6) - (42.0) - (42.4) Treatment: Treated for pneumonia & exacerbation of CHF with IV fluids, IV Azithromycin, IV Rocephin & IV Lasix. In order to capture the severity of condition, please clarify the type of anemia and etiology if known: Chronic anemia is ruled out Chronic blood loss anemia Iron deficiency anemia Hemolytic anemia Drug induced anemia Nutritional anemia Anemia of chronic kidney disease Anemia of other chronic disease Unable to determine Other, please specify (Last Revision: July 2017) Anemia of other chronic disease MTDD
--- NOTE | 2019-08-24 17:17 | FL ---
MODIFIED SWALLOW / DEGLUTITION STUDY DATE OF EXAM: 08/24/2019 CLINICAL HISTORY: 88-year-old male with pneumonia and history of prior aspiration. Rule out aspiratio n. TECHNIQUE: Deglutition study is performed utilizing thin liquid barium, honey and nectar thick liqui d barium, barium thick applesauce, and barium coated cracker. Total fluoroscopy time: 2 minutes 52 seconds. Total images: None. Real-time fluoroscopy support was provided to speech pathology. COMPARISON: None. FINDINGS: Swallow initiation is delayed with bolus free spilling to the level of the vallecula. Absent posterio r pharyngeal wall peristalsis is demonstrated. Moderate vallecular residuals are noted. There is aspi ration with thin liquids. No aspiration seen with the other tested consistencies. IMPRESSION: 1. Aspiration with thin liquids. 2. Delayed swallow and moderate vallecular residuals. 3. Please refer to speech therapist notes for further details if necessary.
--- NOTE | 2019-08-24 18:53 | PN ---
PROGRESS NOTE DATE OF SERVICE: 08/24/2019. This 88-year-old gentleman admitted with possible right-sided pneumonia is being closely monitored. Multiple consultants including pulmonary following the patient closely. A chest x-ray was done which showed some improvement in the infiltrates. PT/OT is evaluating the patient for ECF rehab. No chest pain. No palpitation. EXAM: Alert and oriented times one. Pulse 50, blood pressure 120/60, respirations 16, temperature 97.3, pulse ox 98% on room air. HEENT: Conjunctivae normal. NECK: No JVD. CARDIOVASCULAR: S1, S2 muffled. RESPIRATIONS: Breath sounds diminished in the bases. A few scattered rhonchi and crackles. ABDOMEN is soft, nontender. LEGS are no edema. No swelling. CENTRAL NERVOUS SYSTEM: No focal deficits. LABS: WBC 11.1, hemoglobin 13.8. Sodium 140, potassium 4.5. ASSESSMENT: 1. Right-sided pneumonia, possibly community-acquired, with failure of outpatient treatment. 2. Congestive heart failure acute exacerbation acute on chronic systolic dysfunction, ejection fraction 40-45 percent with possibly ischemic cardiomyopathy. 3. History of coronary artery disease, coronary artery bypass grafting/stent. 4. History of congestive heart failure. 5. History of gastroesophageal reflux disease. 6. Hypertension. 7. Hyperlipidemia. 8. Change in mental status, metabolic encephalopathy, acute on chronic. 9. History of myocardial infarction. 10.History of degenerative joint disease. 11.History of prostate disorder. 12.History of sleep apnea. 13.History of cellulitis. 14.History of sliding hiatal hernia. 15.History of gastritis. 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 17.Chronic kidney stage III. 18.Colonic polyps. 19.History of mild aneurysmal dilatation ascending aorta. 20.History of Parkinson's. 21.History of gait dysfunction. 22.History of peptic ulcer. 23.Hyperkalemia. 24.FULL CODE. RECOMMENDATIONS AND DISCUSSION: Recommend to continue current medications, continue to monitor. Symptomatic treatment. Otherwise, at this time, I recommend continue with current medications. Continue the antibiotics. Continue the bronchodilators. Closely follow with Pulmonary. Further recommendations to follow. PT/OT evaluation, possible ECF rehab in the next 24-48 hours if the patient is stable. MMODL / IJN: [id number] /
[2019-08-24] MEDS: ATORVASTATIN 20 MG TAB PO SCH (22:00)
[2019-08-24] MEDS: AZITHROMYCIN 500 MG in SODIUM CHLORIDE 0.9% 250 ML IVPB SCH (22:02)
[2019-08-25] MEDS: IPRATROPIUM-ALBUTEROL 3 ML NEB INHALATION SCH ×4 (07:05→20:59)
[2019-08-25] MEDS: HEPARIN SODIUM,PORCINE 5,000 UNIT/ML 1 ML VIAL SQ SCH ×2 (07:48→21:47)
[2019-08-25] MEDS: FUROSEMIDE 40 MG TAB PO SCH ×2 (07:48→17:53)
[2019-08-25] MEDS: PANTOPRAZOLE 40 MG TABLET PO SCH (07:48)
[2019-08-25] MEDS: CARBIDOPA-LEVODOPA 25-100 MG 1 EACH TAB PO SCH ×4 (07:48→21:35)
[2019-08-25] MEDS: DOCUSATE 100 MG CAP PO SCH ×2 (07:49→21:35)
[2019-08-25] MEDS: TROSPIUM CHLORIDE 20 MG TABLET PO SCH ×2 (07:49→21:35)
[2019-08-25] MEDS: ASPIRIN 81 MG PO SCH (07:49)
[2019-08-25] MEDS: CARVEDILOL 3.125 MG TAB PO SCH ×2 (07:49→21:35)
[2019-08-25 09:11] LABS: Basophils # (A) 0.1 k/uL (0-0.2); Basophils % (A) 1 %; Eosinophils % (A) 8 %; HCT 43.5 % (39.0-53.0); HGB 14.2 gm/dL (13.0-17.5); Lymphocytes # (A) 2.1 k/uL (1.0-4.8); Lymphocytes % (A) 16 %; MCH 29.2 pg (25.0-35.0); MCHC 32.7 g/dL (31.0-37.0); MCV 89.4 fL (80.0-100.0); Mean Platelet Volume 6.7; Monocytes # (A) 0.5 k/uL (0-1.0); Monocytes % (A) 4 %; Neutrophils % (A) 69 %; Platelet Count 238 k/uL (150-450); RBC 4.87 m/uL (4.30-5.90); RDW 15.1 % (11.5-15.5)
[2019-08-25 09:26] LABS: Calcium 8.9 mg/dL (8.4-10.2); Potassium 4.4 mmol/L (3.5-5.1)
[2019-08-25] MEDS: MULTIVITAMINS, THERA 1 EACH TAB PO SCH (11:46)
[2019-08-25] MEDS: FINASTERIDE 5 MG TAB PO SCH (11:46)
[2019-08-25] MEDS: levETIRAcetam 500 MG TAB PO SCH ×2 (11:46→21:35)
--- NOTE | 2019-08-25 14:24 | P.PN ---
Subjective Progress Note Date: 08/25/19 Principal diagnosis: Right-sided pneumonia involving upper lobe and lower lobe Congestive heart failure acute on chronic systolic heart failure with baseline ejection fraction of 40% Ischemic cardiomyopathy Coronary artery disease and history of prior CABG Hypertension hypertensive cardiovascular disease Dyslipidemia Sleep disorder breathing and sleep apnea BPH Advanced Parkinson's disease Unstable gait due to Parkinson's disease 08/25/2019, patient seen eval examined during the rounds labs reviewed medications reviewed care plan discussed with the staff at bedside and family members, patient cough congestion is better he is been switched to oral now agree with discharge planning with follow-up on outpatient basis 08/24/2019, patient seen eval examined during the rounds labs reviewed medications reviewed patient is undergoing physical therapy and rehab, off of oxygen currently on room air, no specific complains of present besides complaining of generalized weakness 08/23/2019, patient up on bed sitting upright breathing is stable care plan discussed with the staff at length denies any cough or congestion. Production, patient just received breathing treatments no specific complains of present This is a pleasant 88-year-old male with significant prior medical history of coronary artery disease hypertension hypertensive cardiovascular disease prior history of [place] he sees Dr. Og for primary care activity, patient presented into the hospital with pneumonia, patient has been found to have elevated WBC count in primary care's office chest x-ray performed in the emergency department shows developing a right-sided pneumonia patient has chronic systolic failure ejection fraction baseline of 40% he is being admitted into the hospital for broad-spectrum antibiotics cardiovascular service is also following this patient Objective - Vital Signs Vital signs: Vital Signs Temp 98.4 F 08/25/19 13:35 Pulse 60 08/25/19 13:35 Resp 14 08/25/19 13:35 BP 89/54 08/25/19 13:35 Pulse Ox 97 08/25/19 13:35 Intake & Output 08/24/19 08/25/19 08/25/19 18:59 06:59 18:59 Intake Total 550 500 540 Output Total 150 Balance 400 500 540 Weight 76.5 kg Intake: Intake, IV Titration 300 Amount Azithromycin 500 mg In 250 Sodium Chloride 0.9% 250 ml @ 250 mls/hr IVPB Q24H [facility] Rx#:[id number] cefTRIAXone 1 gm In 50 Sodium Chloride 0.9% 50 ml @ 100 mls/hr IVPB Q24H [facility] Rx#:[id number] Oral 550 200 540 Output: Urine 150 Other: Voiding Method Urinal Urinal Urinal # Voids 2 4 3 - Exam - Constitutional General appearance: average body habitus, cooperative, disheveled, mild distress - EENT Eyes: anicteric sclerae, EOMI, PERRLA, dentition normal, poor dentition, normal appearance ENT: normal oropharynx Ears: bilateral: normal - Neck Carotids: bilateral: upstroke normal Thyroid: bilateral: normal size - Respiratory Respiratory: bilateral: diminished, negative: CTA, dullness, rales, rhonchi, wheezing, prolonged expiration, prolonged inspiration - Cardiovascular Rhythm: regular Heart sounds: normal: S1, S2 - Gastrointestinal General gastrointestinal: decreased bowel sounds, soft - Integumentary Integumentary: decreased turgor, normal - Neurologic Neurologic: CNII-XII intact - Musculoskeletal Musculoskeletal: gait normal, generalized weakness, strength equal bilaterally - Psychiatric Psychiatric: A&O x's 3, appropriate affect, intact judgment & insight - Labs CBC & Chem 7: 08/25/19 08:15 08/25/19 08:15 Labs: Abnormal Lab Results - Last 24 Hours (Table) 08/25/19 08/25/19 Range/Units 08:15 08:15 WBC 13.0 H (3.8-10.6) k/uL Neutrophils # 9.0 H (1.3-7.7) k/uL Eosinophils # 1.0 H (0-0.7) k/uL BUN 27 H (9-20) mg/dL Microbiology - Last 24 Hours (Table) 08/22/19 15:03 Blood Culture - Preliminary Blood No Growth after 48 hours Assessment and Plan Assessment: Right-sided pneumonia involving right upper and lower lobe Congestive heart failure acute on chronic systolic heart failure with baseline ejection fraction of 40% Ischemic cardiomyopathy Coronary artery disease and history of prior CABG Hypertension hypertensive cardiovascular disease Dyslipidemia Sleep disorder breathing and sleep apnea BPH Advanced Parkinson's disease Unstable gait due to Parkinson's disease Plan: Broad-spectrum antibiotics, and can be changed to oral at the time of discharge Breathing treatments Follow-up on cultures Continue home medications DVT and peptic ulcer disease prophylaxis Optimize therapy for chronic systolic heart failure
[2019-08-25] MEDS: ATORVASTATIN 20 MG TAB PO SCH (21:35)
[2019-08-25] MEDS: AZITHROMYCIN 500 MG in SODIUM CHLORIDE 0.9% 250 ML IVPB SCH (21:35)
--- NOTE | 2019-08-25 21:49 | PN ---
PROGRESS NOTE DATE OF SERVICE: 08/25/2019 This 88-year-old gentleman who was admitted with right-sided pneumonia, community- acquired, also has a history of CHF. The patient is being closely monitored at this time. The patient has been diuresed. He is on broad-spectrum IV antibiotics. No chest pain. No palpitation. The most recent chest x-ray showed significant lesion on the right side. PHYSICAL EXAMINATION: Alert and oriented x1. Pulse 60, blood pressure 89/54, respiration 14, temperature 98.4, pulse ox 97% on room air. HEENT: Conjunctivae normal. NECK: No jugular venous distention. CARDIOVASCULAR SYSTEM: S1, S2 muffled. RESPIRATORY SYSTEM: Breath sounds diminished at the bases. A few scattered rhonchi and crackles. ABDOMEN: Soft, non-tender. LEGS: No edema. No swelling. NERVOUS SYSTEM: No focal deficit. LABS: WBC 13, hemoglobin 14.2. ASSESSMENT: 1. Right-sided pneumonia, possibly community-acquired, with failure of outpatient treatment. 2. Congestive heart failure, acute exacerbation, acute on chronic systolic dysfunction, ejection fraction 40% to 45%, with possible ischemic cardiomyopathy history. 3. History of coronary artery disease, coronary artery bypass grafting, stent. 4. History of congestive heart failure. 5. History of gastroesophageal reflux disease. 6. Hypertension. 7. Hyperlipidemia. 8. Change in mental status, metabolic encephalopathy, acute on chronic, multifactorial. 9. History of myocardial infarction. 10.History of degenerative joint disease. 11.History of prostate disorder. 12.History of sleep apnea. 13.History of cellulitis. 14.History of sliding hiatal hernia. 15.History of gastritis. 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 17.Chronic kidney disease, stage III. 18.Colonic polyps. 19.History of mild aneurysmal dilatation, ascending aorta. 20.History of Parkinson's. 21.History of gait dysfunction. 22.History of peptic ulcer. 23.History of hyperkalemia. 24.FULL CODE. RECOMMENDATIONS AND DISCUSSION: I recommend to continue current medications, continue with the monitoring, symptomatic treatment. Otherwise at this time monitor fluid/electrolyte balance closely. Continue with the antibiotics. I would recommend a repeat chest x-ray as well as CT scan. Patient also has a history of aortic aneurysm. Continue to monitor. Guarded prognosis. Further recommendations to follow. MMODL / IJN: [id number] /
[2019-08-26 06:04] VITALS: TEMP 97.4
[2019-08-26] MEDS: DIGOXIN 125 MCG TAB PO SCH (07:57)
[2019-08-26] MEDS: ASPIRIN 81 MG PO SCH (07:57)
[2019-08-26] MEDS: CARBIDOPA-LEVODOPA 25-100 MG 1 EACH TAB PO SCH ×2 (07:58→13:03)
[2019-08-26] MEDS: PANTOPRAZOLE 40 MG TABLET PO SCH (07:58)
[2019-08-26] MEDS: CARVEDILOL 3.125 MG TAB PO SCH (07:58)
[2019-08-26] MEDS: DOCUSATE 100 MG CAP PO SCH (07:58)
[2019-08-26] MEDS: HEPARIN SODIUM,PORCINE 5,000 UNIT/ML 1 ML VIAL SQ SCH (07:59)
[2019-08-26] MEDS: FUROSEMIDE 40 MG TAB PO SCH (07:59)
[2019-08-26] MEDS: TROSPIUM CHLORIDE 20 MG TABLET PO SCH (07:59)
[2019-08-26] MEDS: MULTIVITAMINS, THERA 1 EACH TAB PO SCH (07:59)
[2019-08-26] MEDS: IPRATROPIUM-ALBUTEROL 3 ML NEB INHALATION SCH ×2 (08:38→11:58)
--- NOTE | 2019-08-26 09:11 | XR ---
EXAMINATION TYPE: XR chest 1V portable DATE OF EXAM: 08/26/2019 COMPARISON: Prior chest x-ray 08/24/2019 HISTORY: Pneumonia TECHNIQUE: Single frontal view of the chest is obtained. FINDINGS: Aorta is dense and ectatic. Patient is postmedian sternotomy. The heart remains enlarged. There is improved aeration, improved lung volume as compared to prior exam. No evident pneumothorax o r pleural effusion. Postop change again noted to the right shoulder, right shoulder is high riding, p ossible underlying chronic rotator cuff tear. There is underlying arthropathy glenohumeral joint. No significant airspace disease. IMPRESSION: Improvement in aeration.
--- NOTE | 2019-08-26 09:48 | CT ---
EXAMINATION TYPE: CT chest wo con DATE OF EXAM: 08/26/2019 COMPARISON: December 06, 2014 HISTORY: Pneumonia CT DLP: [address] of the chest was performed with lung and mediastinal window settings submitted. The la ck of contrast limits evaluation of the vascular, mediastinal and parenchymal structures including th e upper abdomen. LUNGS:New areas of new infiltrate noted right upper lobe which may reflect pneumonia. Correlate clini ke. The lungs are otherwise clear. No atelectasis. No pulmonary nodule or mass is detected. No p leural effusion. No CT evidence of interstitial lung disease. MEDIASTINUM/VJ: Stable ascending thoracic aortic aneurysm at 4.3 cm AP dimension. Atheromatous guzman ges noted throughout. Mild ectasia of the descending thoracic aorta noted. The heart is mildly enlarg ed with coronary artery calcifications noted. Changes of median sternotomy.No evidence for mediastina l mass. No lymph nodes greater than 1cm. Moderate fixed hiatal hernia noted. UPPER ABDOMEN: There is evidence of cholelithiasis. Stable simple cyst upper pole left kidney. OTHER: No significant other abnormality. IMPRESSION: 1. New areas of new infiltrate noted right upper lobe which may reflect pneumonia. Correlate clinica lly. 2.Stable ascending thoracic aortic aneurysm at 4.3 cm AP dimension. Atheromatous changes noted rocio hobev.
[2019-08-26] MEDS: levETIRAcetam 500 MG TAB PO SCH (11:15)
[2019-08-26] MEDS: FINASTERIDE 5 MG TAB PO SCH (11:15)
--- NOTE | 2019-08-26 13:08 | P.DS ---
Providers Date of admission: 08/21/19 18:18 Expected date of discharge: 08/26/19 Attending physician: Katya Strickland Consults: 08/22/19 10:31 Consult Physician Routine Consulting Provider: Didier Bobby Consult Reason/Comments: chf Do you want consulting provider notified?: Yes 08/22/19 16:34 Consult Physician Routine Consulting Provider: Amos Seals Consult Reason/Comments: copd pneumonia Do you want consulting provider notified?: Yes Primary care physician: José Miguel Rodriguez [facility] Course: Final diagnosis Right-sided pneumonia, possibly community acquired, with failure of outpatient treatment Congestive heart failure, acute exacerbation, acute on chronic systolic dysfunction, ejection fraction 40-45%, with possible ischemic cardiomyopathy history History of coronary artery disease, coronary artery bypass grafting, stent History of congestive heart failure History of gastroesophageal reflux disease Hypertension Hyperlipidemia Change in mental status, metabolic encephalopathy, acute on chronic, multifactorial History of myocardial infarction History of degenerative joint disease History of prostate disorder History of sleep apnea History of cellulitis History of sliding hiatal hernia History of gastritis 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 Patient will continue with short course of oral antibiotics in the form of Zithromax and Ceftin for the next 3 days and then may discontinue. Total time taken is 35 minutes. History of present illness This is an 88-year-old male who was recently admitted with right-sided pneumonia, community-acquired, also have a history of CHF and was being closely monitored. During hospitalization patient was diuresed and also on IV antibiotics. Patient will continue on a biotics in the form of Ceftin as well as Zithromax for the next 3 days and then may discontinue. Patient will follow- up with pulmonary Dr. Seals in the outpatient setting in one week. Patient had a chest x-ray done today which shows improvement in aeration along with a chest CT showing a stable ascending thoracic aortic aneurysm. Currently patient's condition is stable with much improvement and will be returning back to [facility] today. Patient denies any chest pain, shortness of breath, or palpitations at this time. Patient is afebrile. Patient denies any nausea or vomiting and is tolerating diet. Patient is to continue on aspiration precaut ions with no straws and nectar thickened liquids and free water with ice chips between meals. Patient will need repeat labs in 2-3 days to monitor white blood count as well as electrolytes. Guarded prognosis. On exam vital signs are stable. Temp is 97.4F, pulse is 53, respirations are 20, blood pressure is 120/75, oxygen saturation is 98% on room air. Cardio S1 and S2 are muffled. Respiratory system shows diminished breath sounds at the bases with no crackles or wheezing noted. Abdomen is soft and nontender. Nervous system shows no focal deficits. Please refer to medication reconciliation sheet for a list of medications. Patient Condition at Discharge: Stable Plan - Discharge Summary New Discharge Prescriptions: New Ipratropium-Albuterol Nebulize [Duoneb 0.5 mg-3 mg/3 ml Soln] 3 ml INHALATION RT-QID ampul.neb Multivitamin,Therapeutic [Thera] 1 each PO DAILY 30 Days #30 tablet Acetaminophen Tab [Tylenol] 650 mg PO Q6HR PRN tab PRN Reason: Mild Pain Or Fever > 100.5 Cefuroxime Axetil [Ceftin] 500 mg PO BID 3 Days #6 tab Azithromycin [Zithromax] 500 mg PO DAILY 3 Days #3 tab Continue Aspirin 81 mg PO DAILY Carbidopa-Levodopa 25-100 mg [Sinemet 25-100 mg] 1 tab PO QID rOPINIRole HCL [Requip] 2 mg PO QAM Finasteride 5 mg PO DAILY@1200 levETIRAcetam [Keppra] 500 mg PO BID@1200,2000 Spironolactone [Aldactone] 25 mg PO DAILY@1200 rOPINIRole HCL [Requip] 3 mg PO HS@2000 Trospium Chloride [Sanctura XR] 60 mg PO DAILY Omeprazole [PriLOSEC] 40 mg PO DAILY Docusate [Colace] 100 mg PO BID Carvedilol [Coreg] 3.125 mg PO BID Furosemide [Lasix] 40 mg PO BID@0800,1600 Digoxin [Lanoxin] 125 mcg PO Q48H Neopro Patch 2mg 1 patch TOPICAL HS Indomethacin [Indocin] 25 mg PO TID PRN #21 capsule PRN Reason: Pain Cephalexin [Keflex] 500 mg PO Q6HR #28 cap Atorvastatin [Lipitor] 20 mg PO HS Discontinued Potassium Chloride [Klor-Con 10] 10 meq PO DAILY@1600 Discharge Medication List Aspirin 81 mg PO DAILY 03/19/14 [History] Carbidopa-Levodopa 25-100 mg [Sinemet 25-100 mg] 1 tab PO QID 03/19/14 [History] Finasteride 5 mg PO DAILY@1200 03/19/14 [History] rOPINIRole HCL [Requip] 2 mg PO QAM 03/19/14 [History] Spironolactone [Aldactone] 25 mg PO DAILY@119912/28/16 [History] levETIRAcetam [Keppra] 500 mg PO BID@1200,199912/28/16 [History] rOPINIRole HCL [Requip] 3 mg PO HS@199912/28/16 [History] Omeprazole [PriLOSEC] 40 mg PO DAILY 02/06/17 [History] Trospium Chloride [Sanctura XR] 60 mg PO DAILY 02/06/17 [History] Carvedilol [Coreg] 3.125 mg PO BID 07/03/18 [History] Docusate [Colace] 100 mg PO BID 07/03/18 [History] Digoxin [Lanoxin] 125 mcg PO Q48H 05/07/19 [History] Furosemide [Lasix] 40 mg PO BID@0800,1600 05/07/19 [History] Cephalexin [Keflex] 500 mg PO Q6HR #28 cap 08/16/19 [Rx] Indomethacin [Indocin] 25 mg PO TID PRN #21 capsule 08/16/19 [Rx] Neopro Patch 2mg 1 patch TOPICAL HS 08/16/19 [History] Atorvastatin [Lipitor] 20 mg PO HS 08/21/19 [History] Acetaminophen Tab [Tylenol] 650 mg PO Q6HR PRN tab 08/26/19 [Rx] Azithromycin [Zithromax] 500 mg PO DAILY 3 Days #3 tab 08/26/19 [Rx] Cefuroxime Axetil [Ceftin] 500 mg PO BID 3 Days #6 tab 08/26/19 [Rx] Ipratropium-Albuterol Nebulize [Duoneb 0.5 mg-3 mg/3 ml Soln] 3 ml INHALATION RT-QID ampul.neb 08/26/19 [Rx] Multivitamin,Therapeutic [Thera] 1 each PO DAILY 30 Days #30 tablet 08/26/19 [Rx] Follow up Appointment(s)/Referral(s): Tye Valdez MD [Primary Care Provider] - 1-2 days [facility], [NON-STAFF] - Amos Seals MD [STAFF PHYSICIAN] - 1 Week Ambulatory/Diagnostic Orders: Basic Metabolic Panel [LAB.AMB] Time Frame: 2 Days, Location: None Selected Complete Blood Count w/diff [LAB.AMB] Time Frame: 2 Days, Location: None Selected Activity/Diet/Wound Care/Special Instructions: Patient will be going to [facility] Activity as tolerated Complete full course of antibiotics until finished Follow-up with primary care provider upon discharge Repeat labs in 2-3 days Follow-up with Dr. Seals in one week Continue current diet Discharge Disposition: TRANSFER TO SNF/ECF
[2019-08-26 14:22] VITALS: BP 107/66; PULSE 56; RESP 18
== END 2019-08-26 14:58 | DRG 193 ==
LOC: EC 16:45 → 4MS4W 18:18
PROVIDERS: ADMIT Hospitalist; ATTEND Hospitalist
DX: J18.9 Pneumonia, unspecified organism (principal); G93.41 Metabolic encephalopathy; I50.23 Acute on chronic systolic (congestive) heart failure; I13.0 Hypertensive heart and chronic kidney disease with heart failure and stage 1 through stage 4 chronic kidney disease, or unspecified chronic kidney disease; I69.054 Hemiplegia and hemiparesis following nontraumatic subarachnoid hemorrhage affecting left non-dominant side; E87.5 Hyperkalemia; G20 Parkinson's disease; I27.20 Pulmonary hypertension, unspecified; I71.2 Thoracic aortic aneurysm, without rupture; E78.5 Hyperlipidemia, unspecified; I25.5 Ischemic cardiomyopathy; I35.0 Nonrheumatic aortic (valve) stenosis; N18.3 Chronic kidney disease, stage 3 (moderate); D63.8 Anemia in other chronic diseases classified elsewhere; I69.022 Dysarthria following nontraumatic subarachnoid hemorrhage; F02.80 Dementia in other diseases classified elsewhere, unspecified severity, without behavioral disturbance, psychotic disturbance, mood disturbance, and anxiety; G47.30 Sleep apnea, unspecified; I25.10 Atherosclerotic heart disease of native coronary artery without angina pectoris; I25.2 Old myocardial infarction; K21.9 Gastro-esophageal reflux disease without esophagitis; N40.0 Benign prostatic hyperplasia without lower urinary tract symptoms; R29.6 Repeated falls; K44.9 Diaphragmatic hernia without obstruction or gangrene; K57.90 Diverticulosis of intestine, part unspecified, without perforation or abscess without bleeding; M19.90 Unspecified osteoarthritis, unspecified site; R26.81 Unsteadiness on feet; H91.90 Unspecified hearing loss, unspecified ear; H54.7 Unspecified visual loss; R32 Unspecified urinary incontinence; Z79.82 Long term (current) use of aspirin; Z79.899 Other long term (current) drug therapy; Z95.1 Presence of aortocoronary bypass graft; Z95.5 Presence of coronary angioplasty implant and graft; Z96.653 Presence of artificial knee joint, bilateral; Z86.010 Personal history of colon polyps; Z87.11 Personal history of peptic ulcer disease; Z87.440 Personal history of urinary (tract) infections; Z82.49 Family history of ischemic heart disease and other diseases of the circulatory system; Z80.9 Family history of malignant neoplasm, unspecified
CPT/HCPCS: 36415; 71045; 71046; 71250; 74230; 80048; 80051; 80053; 81003; 82565; 83605; 83880; 84520; 85025; 87040; 93005; 93306; 94640; 96365; 99285

== ENCOUNTER 2020-03-21 12:06 | Emergency (ER) | payer MEDICARE, BC ==
[2020-03-21 12:22] VITALS: RESP 20; TEMP 97.7
[2020-03-21] MEDS ORDERED: LIDOCAINE 1%-EPI 1:100,000 20 ML VIAL SQ STA (12:33)
--- NOTE | 2020-03-21 12:39 | ED ---
General Adult HPI - General Chief complaint: Fall Stated complaint: Fall head injury Time Seen by Provider: 03/21/20 12:22 Source: patient, EMS Mode of arrival: EMS Limitations: no limitations - History of Present Illness Initial comments: Dictation was produced using I Do Now I Don't dictation software. please excuse any grammatical, word or spelling errors. This patient was cared for during a federal and state declared state of emergency secondary to Covid 19 Chief Complaint: 89-year-old male presents after fall. History of Present Illness: Patient is a 89-year-old male presents after fall. Patient at baseline has unsteady gait. He has a button clamper at home. Patient tried to get up when he fell backwards. He does have a history of lower extremity weakness. Fell backward struck his head. No loss of consciousness. Patient denies any pain complaints at this time. He is accompanied by family member who reports that patient appears to be at his baseline at this time. Does have history of ataxic gait usually and has been a fall risk for the past several months. The ROS documented in this emergency department record has been reviewed and confirmed by me. Those systems with pertinent positive or negative responses have been documented in the HPI. All other systems are other negative and/or noncontributory. PHYSICAL EXAM: General Impression: Alert and oriented x3, not in acute distress HEENT: 3 cm laceration to the occiput, extra-ocular movements intact, pupils equal and reactive to light bilaterally, mucous membranes moist. Cardiovascular: Heart regular rate and rhythm Chest: Able to complete full sentences, no retractions, no tachypnea Abdomen: abdomen soft, non-tender, non-distended, no organomegaly Musculoskeletal: Pulses present and equal in all extremities, no peripheral edema Motor: no focal deficits noted Neurological: CN II-XII grossly intact, no focal motor or sensory deficits noted Skin: Intact with no visualized rashes Psych: Normal affect and mood ED course: 89 y Old male presents after fall. Vital signs upon arrival shows heart rate of 55, the pressure 96/76, rest of vital signs within acceptable limits. Lavatory evaluation was obtained showing no acute processes. Computed tomography scan of the head and C-spine shows no dramatic injuries. Laceration was repaired at bedside. Multiple gia were placed. Chest x-ray and pelvis x-rays shows no trichomoniasis injuries. There is however therefore bilateral infiltrate and small right effusion on the x-ray. Pelvis x-ray is nonacute. Patient denies any respiratory symptoms. He is breathing well and showing no apparent respiratory distress. Furthermore is not hypoxic. No coughing. Patient is respiratory stable. Patient has history of atrial fibrillation he is not on anticoagulation due to frequent falls. Patient given prescription for Zithromax. There is some concern of possible early pneumonia. Daughter told to bring patient to primary care physician for follow-up. Colt should be removed in 7-10 days. Return parameters discussed. Patient clear for discharge. EKG interpretation: Ventricular rate, A. fib, QRS 112, QTC 452. No DE prolongation, no QTC prolongation, no ST or T-wave changes noted. Overall, this EKG is unremarkable - Related Data Home Medications Medication Instructions Recorded Confirmed Aspirin 81 mg PO DAILY 03/19/14 08/21/19 Carbidopa-Levodopa 25-100 mg 1 tab PO QID 03/19/14 08/21/19 [Sinemet 25-100 mg] Finasteride 5 mg PO DAILY@1200 03/19/14 08/21/19 rOPINIRole HCL [Requip] 2 mg PO QAM 03/19/14 08/21/19 Spironolactone [Aldactone] 25 mg PO DAILY@1200 12/28/16 08/21/19 levETIRAcetam [Keppra] 500 mg PO BID@1200,199912/28/16 08/21/19 rOPINIRole HCL [Requip] 3 mg PO HS@199912/28/16 08/21/19 Omeprazole [PriLOSEC] 40 mg PO DAILY 02/06/17 08/21/19 Trospium Chloride [Sanctura XR] 60 mg PO DAILY 02/06/17 08/21/19 Carvedilol [Coreg] 3.125 mg PO BID 07/03/18 08/21/19 Docusate [Colace] 100 mg PO BID 07/03/18 08/21/19 Digoxin [Lanoxin] 125 mcg PO Q48H 05/07/19 08/21/19 Furosemide [Lasix] 40 mg PO BID@0800,1600 05/07/19 08/21/19 Neopro Patch 2mg 1 patch TOPICAL HS 08/16/19 08/21/19 Atorvastatin [Lipitor] 20 mg PO HS 08/21/19 08/21/19 Previous Rx's Medication Instructions Recorded Indomethacin [Indocin] 25 mg PO TID PRN #21 capsule 08/16/19 ALPRAZolam [Xanax] 0.25 mg PO TID PRN #3 tab 08/26/19 Acetaminophen Tab [Tylenol] 650 mg PO Q6HR PRN tab 08/26/19 Azithromycin [Zithromax] 500 mg PO DAILY 3 Days #3 tab 08/26/19 Cefuroxime Axetil [Ceftin] 500 mg PO BID 3 Days #6 tab 08/26/19 Ipratropium-Albuterol Nebulize 3 ml INHALATION RT-QID ampul.neb 08/26/19 [Duoneb 0.5 mg-3 mg/3 ml Soln] Multivitamin,Therapeutic [Thera] 1 each PO DAILY 30 Days #30 tablet 08/26/19 Azithromycin [Zithromax Z-pack] 0 mg PO DIRECTED #6 tab 03/21/20 Allergies Allergy/AdvReac Type Severity Reaction Status Date / Time No Known Allergies Allergy Verified 08/21/19 18:42 Review of Systems ROS Statement: Those systems with pertinent positive or pertinent negative responses have been documented in the HPI. ROS Other: All systems not noted in ROS Statement are negative. Past Medical History Past Medical History: Coronary Artery Disease (CAD), Chest Pain / Angina, Heart Failure, GERD/Reflux, Hyperlipidemia, Hypertension, Myocardial Infarction (AK), Musculoskeletal Disorder, Neurologic Disorder, Osteoarthritis (OA), Prostate Disorder, Renal Disease, Sleep Apnea/CPAP/BIPAP Additional Past Medical History / Comment(s): cellulitis scalp. Other hx: Sliding hiatal hernia, mild gastritis, subarachnoid brain bleed with L arm weakness/slurred speech and a little L leg weakness, CKD stage III, chronic anemia, colonic polyp (right colon), obesity, mild aneurysmal dilatation of the ascending aorta, PARKINSONS, CPAP MACHINE (does not use), PEPTIC ULCERS-past bleed,diverticulosis, BPH, UTI, FALLS (06-29-15 FELL OFF LADDER-HEAD INJURY AND FX LT COLLAR BONE -NO SX. Last Myocardial Infarction Date:: 2011 History of Any Multi-Drug Resistant Organisms: None Reported Past Surgical History: Coronary Bypass/CABG, Heart Catheterization, Heart Catheterization With Stent, Joint Replacement, Tonsillectomy Additional Past Surgical History / Comment(s): 2 VESSEL CABG 30 YRS AGO, bilateral knee replacements, stents placed 2011, ERENDIRA shoulder ARTHROTOMY, FINGER SX, EGD/COLONOSCOPY,RT FOOT SX. Past Anesthesia/Blood Transfusion Reactions: No Reported Reaction Additional Past Anesthesia/Blood Transfusion Reaction / Comment(s): Pt takes a long time waking up after general anesthesia. HAD BLOOD TRANSFUSION-NO REACTION TO IT. Date of Last Stent Placement:: 2011 Past Psychological History: No Psychological Hx Reported Smoking Status: Current some day smoker Past Alcohol Use History: Occasional Past Drug Use History: None Reported - Past Family History Father Family Medical History: Cancer, Chest Pain / Angina, Congestive Heart Failure (CHF), Coronary Artery Disease (CAD), Hypertension, Myocardial Infarction (AK) Additional Family Medical History / Comment(s): Prostate issues Mother Additional Family Medical History / Comment(s): hit by a car causing General Exam Limitations: no limitations Course Vital Signs 03/21/20 12:13 Temperature 97.7 F Pulse Rate 55 L Respiratory 20 Rate Blood Pressure 96/76 O2 Sat by Pulse 98 Oximetry Procedures - Laceration Laceration #1 Consent Obtained: verbal consent Indication: laceration Site: scalp Description: flap Anesthetic Used: lidocaine 1%, with epi Anesthesia Technique: local infiltration Type of Sutures: other (gia) Technique: simple, interrupted Patient Tolerated Procedure: well Medical Decision Making - Lab Data Result diagrams: 03/21/20 12:53 03/21/20 12:53 Lab Results 03/21/20 03/21/20 Range/Units 12:53 12:53 WBC 9.6 (3.8-10.6) k/uL RBC 4.78 (4.30-5.90) m/uL Hgb 12.0 L (13.0-17.5) gm/dL Hct 40.1 (39.0-53.0) % MCV 83.8 (80.0-100.0) fL MCH 25.1 (25.0-35.0) pg MCHC 29.9 L (31.0-37.0) g/dL RDW 16.7 H (11.5-15.5) % Plt Count 181 (150-450) k/uL Neutrophils % 69 % Lymphocytes % 14 % Monocytes % 8 % Eosinophils % 5 % Basophils % 1 % Neutrophils # 6.6 (1.3-7.7) k/uL Lymphocytes # 1.3 (1.0-4.8) k/uL Monocytes # 0.8 (0-1.0) k/uL Eosinophils # 0.5 (0-0.7) k/uL Basophils # 0.1 (0-0.2) k/uL Hypochromasia Moderate Anisocytosis Slight Sodium 136 L (137-145) mmol/L Potassium 4.8 (3.5-5.1) mmol/L Chloride 106 (98-107) mmol/L Carbon Dioxide 21 L (22-30) mmol/L Anion Gap 9 mmol/L BUN 21 H (9-20) mg/dL Creatinine 1.22 (0.66-1.25) mg/dL Est GFR (CKD-EPI)AfAm 61 (>60 ml/min/1.73 sqM) Est GFR (CKD-EPI)NonAf 53 (>60 ml/min/1.73 sqM) Glucose 103 H (74-99) mg/dL Calcium 8.4 (8.4-10.2) mg/dL Digoxin 0.6 ng/mL Disposition Clinical Impression: Fall Disposition: HOME SELF-CARE Condition: Good Instructions (If sedation given, give patient instructions): Fall Prevention for Older Adults (ED) Prescriptions: Azithromycin [Zithromax Z-pack] 0 mg PO DIRECTED #6 tab Is patient prescribed a controlled substance at d/c from ED?: No Referrals: Tye Valdez MD [Primary Care Provider] - 1-2 days Time of Disposition: 14:58
[2020-03-21 13:24] LABS: Anisocytosis Slight; Basophils # (A) 0.1 k/uL (0-0.2); Basophils % (A) 1 %; Eosinophils # (A) 0.5 k/uL (0-0.7); Eosinophils % (A) 5 %; HCT 40.1 % (39.0-53.0); Hypochromasia Moderate; Lymphocytes # (A) 1.3 k/uL (1.0-4.8); Lymphocytes % (A) 14 %; MCH 25.1 pg (25.0-35.0); MCHC 29.9 g/dL (31.0-37.0); MCV 83.8 fL (80.0-100.0); Mean Platelet Volume 8.6; Monocytes # (A) 0.8 k/uL (0-1.0); Monocytes % (A) 8 %; Neutrophils # (A) 6.6 k/uL (1.3-7.7); Neutrophils % (A) 69 %; Platelet Count 181 k/uL (150-450); RBC 4.78 m/uL (4.30-5.90); RDW 16.7 % (11.5-15.5); WBC 9.6 k/uL (3.8-10.6)
[2020-03-21 13:55] LABS: Calcium 8.4 mg/dL (8.4-10.2); Digoxin 0.6 ng/mL; Potassium 4.8 mmol/L (3.5-5.1)
--- NOTE | 2020-03-21 14:02 | CT ---
EXAMINATION TYPE: CT brain cspine wo con DATE OF EXAM: 03/21/2020 COMPARISON: Trauma CT August 16, 2019 HISTORY: Fall injury with headache and neck pain. CT DLP: 1259.7 mGycm. Automated Exposure Control for Dose Reduction was Utilized. TECHNIQUE: CT scan of the head and cervical spine are performed without contrast. FINDINGS: There is no acute intracranial hemorrhage or midline shift identified. Diffuse ventricula r and sulcal prominence redemonstrated. Areas of low attenuation in the periventricular white matter again seen. The calvarium is intact. Soft tissue density right greater than left bilateral auditory c anals is felt to reflect cerumen unchanged from prior. The globes are intact and the visualized sinus es are clear. Old nasal bridge fractures partially imaged similar to prior. Cervical spine is visualized in its entirety from C1 through upper thoracic levels and demonstrates r eversal of normal cervical curvature centered at C3-C4 level. C1-C2 articulation satisfactory on the coronal images. No suspicious prevertebral soft tissue swelling. Vertebral body heights are maintaine d. Moderate to severe multilevel disc space narrowing greatest C3-C4 level with multilevel spurring g reatest C3-C4 and C4-C5 levels anteriorly is again seen. Posterior spurring effaces anterior thecal s ac C3-C4 through the C5-C6 levels on sagittal images. Axial images show multilevel vertebral facet de generative changes contributing to multilevel bilateral neural foraminal narrowing. Lung apices show emphysematous change without pneumothorax. There is old displaced left proximal clavicular fracture r edemonstrated. IMPRESSION: 1. There is no acute fracture or dislocation evident in the cervical spine. 2. No acute intracranial hemorrhage or midline shift is seen. No significant change from most recent prior CT.
--- NOTE | 2020-03-21 14:47 | XR ---
EXAMINATION TYPE: XR chest 1V portable DATE OF EXAM: 03/21/2020 COMPARISON: NONE HISTORY: Pain TECHNIQUE: Single frontal view of the chest is obtained. FINDINGS: Postoperative change and cardiomegaly. There is bilateral consolidation and coarsened inte rstitium. Diffuse osteopenia and arthropathy of the shoulders. Postsurgical change right shoulder. No pneumothorax. IMPRESSION: 1. Bilateral infiltrate and small right effusion. Correlate for CHF otherwise consider interstitial p neumonitis or interstitial chronic lung disease.
--- NOTE | 2020-03-21 14:52 | XR ---
EXAMINATION TYPE: XR pelvis AP view DATE OF EXAM: 03/21/2020 COMPARISON: 05/07/2019 HISTORY: Pain post fall Vascular calcifications are seen and there is diffuse osteopenia. Arthropathy of the hips with chondr ocalcinosis. Sclerosis of the SI joint suggest sacroiliitis.. No acute fracture is seen. Visualized bowel gas pattern is nonspecific. IMPRESSION: 1. No acute fracture. 2. Bilateral hip arthropathy and changes of sacroiliitis.
[2020-03-21 15:37] VITALS: BP 104/73; PULSE 67
== END 2020-03-21 15:38 | disposition home or self-care (01) ==
LOC: EC 12:06
DX: S01.01XA Laceration without foreign body of scalp, initial encounter (principal); I25.119 Atherosclerotic heart disease of native coronary artery with unspecified angina pectoris; I13.0 Hypertensive heart and chronic kidney disease with heart failure and stage 1 through stage 4 chronic kidney disease, or unspecified chronic kidney disease; N18.3 Chronic kidney disease, stage 3 (moderate); G47.30 Sleep apnea, unspecified; E78.5 Hyperlipidemia, unspecified; I48.91 Unspecified atrial fibrillation; I25.2 Old myocardial infarction; G20 Parkinson's disease; M19.90 Unspecified osteoarthritis, unspecified site; F17.200 Nicotine dependence, unspecified, uncomplicated; Z79.82 Long term (current) use of aspirin; Z79.02 Long term (current) use of antithrombotics/antiplatelets; Z79.899 Other long term (current) drug therapy; Z95.1 Presence of aortocoronary bypass graft; Z95.5 Presence of coronary angioplasty implant and graft; Z79.51 Long term (current) use of inhaled steroids; Z99.89 Dependence on other enabling machines and devices; Z96.653 Presence of artificial knee joint, bilateral; W19.XXXA Unspecified fall, initial encounter
CPT/HCPCS: 12002; 36415; 70450; 71045; 72125; 72170; 80048; 80162; 85025; 93005; 99284